=== PATIENT | female | born 1945 | race Caucasian/White ===

== ENCOUNTER 2018-12-09 13:42 | Outpatient (RCR) | payer OTHER, SELFPAY | END 2019-06-15 23:59 | disposition home or self-care (01) | LOC: OPREHAB 13:42 | PROVIDERS: PCP Family Medicine; Visit Provider Surgery Surgical Oncology | DX: I97.2 Postmastectomy lymphedema syndrome (principal); C50.411 Malignant neoplasm of upper-outer quadrant of right female breast; Z17.0 Estrogen receptor positive status [ER+]; Z90.13 Acquired absence of bilateral breasts and nipples | CPT/HCPCS: 97162 ==

== ENCOUNTER → 2019-12-01 09:43 | Outpatient (CLI) | payer MEDICARE, SELFPAY ==
--- NOTE | ~2019-12-01 | CT_ITS ---
EXAMINATION: CT abdomen pelvis w con DATE: 12/01/2019 10:40 INDICATION: Abdominal pain. Early satiety. TECHNIQUE: Computed tomography (CT) of the abdomen and pelvis was performed with 100 mL Omnipaque-350 intravenous contrast. Automated exposure control and iterative reconstruction technique were employe d. The dose-length product was 878.73 mGy-cm. COMPARISON: None FINDINGS: Suture line extending horizontally along the periphery of the left lower lobe. Borderline heart size. Atherosclerotic coronary artery calcification. No pericardial or pleural effusion. Small sliding-typ e hiatal hernia. 1.2 cm low-attenuation lesion in the left hepatic lobe with lobular margins most lik saray a hepatic cyst or hemangioma. Status post cholecystectomy. Spleen, pancreas, bilateral adrenal gl ands and kidneys are normal. Bladder, uterus and bilateral adnexa are unremarkable. Appendix is annie l. No abnormal bowel wall thickening or obstruction. Small fat-containing paraumbilical and tiny fat- containing umbilical hernias. No free intraperitoneal gas or fluid. No pathologically enlarged abdomi nal or pelvic lymphadenopathy. Mild S-shaped scoliosis of the lumbar spine with lower lumbar dextrocu rvature and upper lumbar levocurvature. Severe thoracolumbar spondylosis. Osteitis pubis. IMPRESSION: 1. Small sliding-type hiatal hernia. 2. Fat-containing tiny umbilical and small paraumbilical hernias. Reviewed, dictated and finalized at location A.
[2019-12-01 10:27] LABS: Estimated Glomerular Filt Rate > 60
== END ==
PROVIDERS: PCP Family Medicine; Visit Provider Family Medicine
DX: K44.9 Diaphragmatic hernia without obstruction or gangrene (principal); K42.9 Umbilical hernia without obstruction or gangrene
CPT/HCPCS: 74177; Q9967

== ENCOUNTER 2021-07-29 20:44 | Emergency (ER) | payer MEDICARE, SELFPAY ==
--- NOTE | ~2021-07-29 | XR_ITS ---
EXAM: XR shoulder RT min 2V DATE: 07/29/2021 21:16 HISTORY: Fall and injury . COMPARISON: None available. FINDINGS: Decreased mineralization. Mildly displaced and likely comminuted fracture of the proximal right humerus, likely involving portions of the humeral head and possibly the greater trochanter. No lytic or blastic lesion. Joint spaces are maintained. No erosion or periosteal change. Soft tissues w ithin normal limits. IMPRESSION: Mildly displaced likely comminuted fracture of the proximal right humerus, may involve po rtions of the humeral head/greater trochanter. Reviewed, dictated and finalized at location K. IMPRESSION: Mildly displaced likely comminuted fracture of the proximal right h umerus, may involve portions of the humeral head/greater trochanter.
[2021-07-29 20:46] VITALS: BP 168/76; PULSE 79; RESP 18; TEMP 36.8; O2SAT 95
--- NOTE | 2021-07-29 21:02 | ED.UPPEXIN ---
HPI - Extremity Injury (Upper) General Chief Complaint: Extremity Injury, Upper Stated Complaint: fall with right shoulder pain History of Present Illness HPI narrative: 75-year-old female presents emergency room secondary to pain and injury to the right shoulder. She was at a gas station and there was 1 step to walk up to get into the place and she just did not see it and tripped and fell. Landing striking her right shoulder. Did not hit her head and had no loss of consciousness. She denies any neck, chest, or lower extremity pain. This happened just prior to presentation emergency room. She is brought in by EMS. They gave her morphine IV prior to arrival. Review of Systems Review of Systems: CONSTITUTIONAL: Denies fever, chills, or sweats. EYES: Denies visual changes, redness, or discharge. ENT: Denies rhinorrhea, congestion, sore throat, or otalgia. CARDIOVASCULAR: Denies chest pain, palpitations, or edema. RESPIRATORY: Denies cough or dyspnea. GASTROINTESTINAL: Denies abdominal pain, nausea, vomiting, or diarrhea. GENITOURINARY: Denies dysuria or hematuria. SKIN: Denies rash or itching. MUSCULOSKELETAL: Pain to the right shoulder with decreased range of motion. No pain to the neck or back NEUROLOGIC: Denies headache, numbness, or weakness. PSYCHIATRIC: Denies anxiety or depression. [facility] Past Medical History Medical History Breast cancer Hypertension Surgical History Surgical History H/O bilateral mastectomy Social History Social History Smoking status: Never smoker Exam Narrative: APPEARANCE: Well appearing, no pain or distress, well-nourished. Head normocephalic and atraumatic. EYES: PERRLA/EOMI, conjunctivae very clear. NOSE: Normal with no drainage EARS:TMS clear Mikki Baxter, with good light reflex. THROAT: Pharynx clear, no exudate. NECK: Supple. No adenopathy, no masses. RESPIRATORY: Airway patent, respirations nonlabored. Clear to auscultation bilaterally, no rales, rhonchi, wheezing. CARDIOVASCULAR: Regular rate and rhythm without murmurs, rubs, or gallops. ABDOMINAL: Soft, nontender, nondistended, no hepatosplenomegaly Musculoskeletal: Decreased range of motion of the right shoulder. Tenderness to palpation anteriorly as well as the lateral aspect of the proximal humerus. There is no tenderness down the humeral shaft to the elbow and below. With full range of motion at the wrist and with all her fingers. No tenderness to palpation along her posterior cervical spine with full range of motion. NEURO: Alert. Cranial nerves II through XII intact. Normal gait. Good coordination. Nonfocal examination. SKIN:: Warm, dry. Normal Color PSYCHIATRIC: Normal affect/mood, normal interaction Course Vital Signs Vital signs: Vital Signs Temperature 98.3 F 07/29/21 20:46 Pulse Rate 79 07/29/21 20:46 Respiratory Rate 18 07/29/21 20:46 Blood Pressure 168/76 H 07/29/21 20:46 Pulse Oximetry 95 07/29/21 20:46 Temperature 98.3 F 07/29/21 20:46 Pulse Rate 79 07/29/21 20:46 Respiratory Rate 18 07/29/21 20:46 Blood Pressure 168/76 H 07/29/21 20:46 Pulse Oximetry 95 07/29/21 20:46 MDM - Extremity Injury (Upper) MDM Narrative Medical decision making narrative: X-rays read by me shows an impacted right humeral neck fracture. This was showed to the patient and her family. Also explained to her that these are generally medical fractures and do not require surgery. Patient will be fitted with a shoulder immobilizer. Patient was given additional Toradol IV prior to removing her IV. Told her she can supplement her medication for pain at home Advil or Aleve. Given a prescription for Ava. Given follow-up with orthopedics. Imaging Data My impression: Impacted humeral neck fracture Discharge Plan Discharge Clinical Impress
[2021-07-29 21:30] VITALS: BP 130/78; PULSE 80; RESP 16; TEMP 36.6; O2SAT 100
[2021-07-29] MEDS: KETOROLAC 30 MG/ML VIAL (*BKC) IV PUSH (21:39)
== END 2021-07-29 22:04 | disposition home or self-care (01) ==
LOC: ANHED 21:44
PROVIDERS: Emergency Provider Emergency Medicine; PCP Family Medicine
DX: S42.211A Unspecified displaced fracture of surgical neck of right humerus, initial encounter for closed fracture (principal); I10 Essential (primary) hypertension; Z85.3 Personal history of malignant neoplasm of breast; Z90.13 Acquired absence of bilateral breasts and nipples; W10.9XXA Fall (on) (from) unspecified stairs and steps, initial encounter
CPT/HCPCS: 73030; 96374; 99284; J1885

== ENCOUNTER 2024-04-05 14:39 | Outpatient (CLI) | payer MEDICARE, SELFPAY ==
--- NOTE | ~2024-04-05 | CT_ITS ---
CT of the Abdomen and Pelvis: Indication: Microhematuria Technique: 2.5 mm axial scans were obtained through the abdomen and pelvis prior to and following in travenous administration of 130 cc of Omnipaque 350. Dose reduction technique was used on this scan b y utilizing automated exposure control and iterative reconstruction technique. The dose-length produc t (DLP) was 2051.10 mGy-cm. Findings: Scans through the lung bases are unremarkable. The liver, spleen, pancreas, adrenals and kidneys are within normal limits. Cholecystectomy clips are present. There are atherosclerotic calcifications of the aorta. No lymphadenopathy. No bowel obstruction or bowel wall thickening. There is no evidence to suggest acute appendicitis. Sm all fat-containing umbilical hernia present. Images through the pelvis were performed. Urinary bladder unremarkable. No pelvic mass seen. No ascit es. There is degenerative spondylosis of the spine. Impression: No etiology for hematuria identified. Small fat-containing umbilical hernia. Reviewed, dictated and finalized at [facility]. RVISOR ABATTOIR Impression: No etiology for hematuria identified. Small fat-containing umbilical hernia.
[2024-04-05 15:30] LABS: Estimated Glomerular Filt Rate 48
--- OUTSIDE RECORDS SUMMARY | 2024-04-05 17:09 | XMS_ITS | Clinical Summary ---
Author Organization [facility] Address [address] [place] [address] Care Team Providers Care Environmental Planner Name Role Phone Anastasiya Collins MD Primary Care Provider [phone] Source Comments [facility],non-owned Affiliates and Associated Physician Practices is amultiple site organization consisting of ambulatory clinics and hospital sitesin [place], [place]. This disclosure is being madepursuant to the Care Everywhere program and may not contain all information available regarding this patient. Last updated 17.[facility] Allergies Active Allergy Reactions Criticality Noted Date Comments Amoxicillin Rash Medium 04/10/2017 Fish Allergy Anaphylaxis High 04/10/2017 Sulfa Drugs Urticaria Medium 04/10/2017 Medications * Be aware that medications may not be up to date on this document. Alwaysverify current medications with the patient. Medication Sig Dispensed Refills Start Date End Date Status LEVOTHYROXINE SODIUM PO Active ATENOLOL PO Active Citalopram Hydrobromide (CITALOPRAM PO) Active GEMFIBROZIL PO Active Fluticasone-Salmetero l (ADVAIR HFA IN) Active ALBUTEROL IN Active metFORMIN (GLUCOPHAGE) 500 MG tablet Take 500 mg by mouth 2 times daily with morning and evening meal Active SIMVASTATIN PO Active aspirin (ASPIRIN) 81 MG tablet Take 81 mg by mouth once daily Active GLIPIZIDE PO Active vitamin D, ergocalciferol, (DRISDOL) 1.25 MG (84532 UT) capsule Take 50,000 Units by mouth every 7 days 06/12/2020 Active anastrozole (ARIMIDEX) 1 MG tablet Take 1 mg by mouth once daily 07/24/2020 Active famotidine (PEPCID) 20 MG tablet Take 20 mg by mouth 2 times daily 07/24/2020 Active furosemide (LASIX) 20 MG tablet Take 20 mg by mouth as needed 07/27/2020 Active predniSONE (DELTASONE) 20 MG tablet Take 20 mg by mouth as needed 06/09/2020 Active cyclobenzaprine (FLEXERIL) 5 MG tablet Take 1 (one) tablet by mouth nightly as needed 30 tablet 2 09/08/2020 Active methotrexate 2.5 MG tablet Take 4 tablets once in week 1, and then 6 tablets once every week. 30 tablet 1 11/30/2020 Active folic acid (FOLVITE) 1 MG tablet Take 1 (one) tablet by mouth once daily 30 tablet 2 11/30/2020 Active celecoxib (CELEBREX) 100 MG capsuleIndications:Po lyarthritis TAKE 1 CAPSULE BY MOUTH EVERY DAY WITH FOOD 30 capsule 1 04/18/2021 Active Immunizations Name Administration Dates Next Due Covid Moderna primary monovalent 12+ yr 0.5mL ,04/10/2020 INFLUENZA VACCINE, HIGH-DOSE , QUADR. (FLUZONE HIGH-DOSE QUADRIVALENT; 65Y+), 0.7 ML (HD-IIV4) 03/29/2019,12/18/2017 Pneumococcal Pcv13 Conj 01/07/2018 Social History Tobacco Use Types Packs/Day Years Used Date Smoking Tobacco: Former Cigarettes Q uit: 1970 Smokeless Tobacco: Never PHQ-2 Answer Date Recorded PHQ2 TOTAL SCORE 0 09/08/2020 Sex and Gender Information Value Date Recorded Sex Assigned at Not on file Gender Identity Not on file Sexual Orientation Not on file Last Filed Vital Signs Vital Sign Reading Time Taken Comments Blood Pressure 144/59 11/21/2020 1:00 PM CDT Pulse 75 11/21/2020 1:00 PM CDT Temperature 37.2 C (99 F) 04/10/2017 2:18 PM BAR PILOT Respiratory Rate 16 04/10/2017 2:18 PM BAR PILOT Oxygen Saturation 100% 11/21/2020 1:00 PM CDT Inhaled Oxygen Concentration - - Weight 87.5 kg (193 lb) 11/21/2020 1:00 PM CDT Height 149.9 cm (4' 11 ) 11/21/2020 1:00 PM CDT Body Mass Index 38.98 11/21/2020 1:00 PM CDT Plan of Treatment Health Maintenance Due Date Last Done Comments BONE DENSITY TESTING 1945 HEPATITIS C SCREENING 12/23/1963 DTAP/TDAP/TD VACCINES (1 - Tdap) 1964 ZOSTER VACCINE (1 of 2) 12/28/1995 PNEUMOCOCCAL VACCINE 50+ (2 of 2 - PPSV23) 01/07/2019 01/07/2018 Respiratory Syncytial Virus (RSV) Vaccine Pt: or over 60 yrs (1 - 1-dose 75+ series) 2020 COVID-19 VACCINE ( - season) 2023 01/02/2021, 05/07/2020, 04/10/2020, Additional history exists INFLUENZA VACCINE (#1) 2023 03/29/2019, 2017 DEPRESSION SCREENING 02/11/2024 MEDICARE AWV CALENDAR YEAR 2024 HEPATITIS B VACCINE Aged Out No longe r eligible based on patient's age to complete this topic HIB VACCINE Aged Out No longer eligi ble based on patient's age to complete this topic HPV VACCINE Aged Out No longer eligi ble based on patient's age to complete this topic MENINGOCOCCAL (Group B) VACCINE Aged Out No longer eligible based on patient's age to complete this topic MENINGOCOCCAL VACCINE Aged Out No dilip christopher eligible based on patient's age to complete this topic Care Teams Environmental Planner Relationship Specialty Start Date End Date Anastasiya Collins MD [address] [place] [phone] PCP - General Family Medicine 09/06/20
--- OUTSIDE RECORDS SUMMARY | 2024-04-05 17:09 | XMS_ITS | Clinical Summary ---
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 Gender Identity Not on file Sexual Orientation Not on file Plan of Treatment Health Maintenance Due Date Last Done Comments DEXA Bone Density 1945 Hepatitis C Virus (HCV) Screening 1945 TdaP Immunization 1945 Zoster Immunization (1 of 2) 12/28/1995 Pneumococcal Immunization (50+ years) (2 of 2 - PPSV23) 01/07/2019 01/07/2018 Respiratory Syncytial Virus (RSV) Immunization (Adult) (1 - 1-dose 75+ series) 2020 Influenza Immunization (#1) 10/12/202311/10, 03/29/2019, 03/29/2019, Additional history exists SARS-COV-2 Immunization ( season) 2023 01/02/2021, 05/07/2020, 04/10/2020, Additional history exists Hepatitis B Immunization Aged Out No longer eligible based on patient's age to complete this topic Meningococcal Immunization (ACWY) Aged Out No longer eligible based on patient's age to complete this topic Rotavirus Immunization Aged Out No lo nger eligible based on patient's age to complete this topic
--- OUTSIDE RECORDS SUMMARY | 2024-04-05 17:09 | XMS_ITS | Patient Health Summary ---
Author Organization [facility] Address [address] [place] [address] Care Team Providers Care Manager Maintenance Name Role Phone Anastasiya Collins MD Primary Care Provider [phone] Note from [facility],non-owned Affiliates and Associated Physician Practices is amultiple site organization consisting of ambulatory clinics and hospital sitesin [place], [place], [place] and [place]. This disclosure is being madepursuant to the Care Everywhere program and may not contain all information available regarding this patient. Last updated 17.[facility] Allergies * Amoxicillin(Rash) -Medium Criticality * Fish Allergy(Anaphylaxis) -High Criticality * Sulfa Drugs(Urticaria) -Medium Criticality Medications * Be aware that medications may not be up to date on this document. Alwaysverify current medications with the patient. * LEVOTHYROXINE SODIUM PO * ATENOLOL PO * Citalopram Hydrobromide (CITALOPRAM PO) * GEMFIBROZIL PO * Fluticasone-Salmeterol (ADVAIR HFA IN) * ALBUTEROL IN * metFORMIN (GLUCOPHAGE) 500 MG tablet Take 500 mg by mouth 2 times daily with morning and evening meal * SIMVASTATIN PO * aspirin (ASPIRIN) 81 MG tablet Take 81 mg by mouth once daily * GLIPIZIDE PO * vitamin D, ergocalciferol, (DRISDOL) 1.25 MG (85150 UT) capsule(Started 06/12/2020) Take 50,000 Units by mouth every 7 days * anastrozole (ARIMIDEX) 1 MG tablet(Started 07/24/2020) Take 1 mg by mouth once daily * famotidine (PEPCID) 20 MG tablet(Started 07/24/2020) Take 20 mg by mouth 2 times daily * furosemide (LASIX) 20 MG tablet(Started 07/27/2020) Take 20 mg by mouth as needed * predniSONE (DELTASONE) 20 MG tablet(Started 06/09/2020) Take 20 mg by mouth as needed * cyclobenzaprine (FLEXERIL) 5 MG tablet(Started 09/08/2020) Take 1 (one) tablet by mouth nightly as needed 2 refills by 09/08/2021 * methotrexate 2.5 MG tablet(Started 11/30/2020) Take 4 tablets once in week 1, and then 6 tablets once every week. 1 refill by 11/30/2021 * folic acid (FOLVITE) 1 MG tablet(Started 11/30/2020) Take 1 (one) tablet by mouth once daily 2 refills by 11/30/2021 * celecoxib (CELEBREX) 100 MG capsule(Started 04/18/2021) TAKE 1 CAPSULE BY MOUTH EVERY DAY WITH FOOD 1 refill by 04/18/2022 Immunizations * Covid Moderna primary monovalent 12+ yr 0.5mL(Given 05/07/2020, 04/10/2020) * INFLUENZA VACCINE, HIGH-DOSE, QUADR. 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 Oxygen Saturation 100% 11/21/2020 1:00 PM CDT Inhaled Oxygen Concentration - - Weight 87.5 kg (193 lb) 11/21/2020 1:00 PM CDT Height 149.9 cm (4' 11 ) 11/21/2020 1:00 PM CDT Body Mass Index 38.98 11/21/2020 1:00 PM CDT Procedures * MITOCHONDRIAL ANTIBODY SCREEN(Performed 11/21/2020) Performed for Psoriatic arthritis (HCC) * SMOOTH MUSCLE ANTIBODY(Performed 11/21/2020) Performed for Psoriatic arthritis (HCC) * COMPREHENSIVE METABOLIC PANEL(Performed 11/21/2020) Performed for Psoriatic arthritis (HCC) * CBC W AUTO DIFFERENTIAL(Performed 11/21/2020) Performed for Psoriatic arthritis (HCC) * FOLATE(Performed 11/21/2020) Performed for Psoriatic arthritis (HCC) * URIC ACID BLOOD(Performed 09/08/2020) Performed for Polyarthritis * C-REACTIVE PROTEIN(Performed 09/08/2020) Performed for Polyarthritis * ERYTHROCYTE SEDIMENTATION RATE(Performed 09/08/2020) Performed for Polyarthritis * COMPREHENSIVE METABOLIC PANEL(Performed 09/08/2020) Performed for Polyarthritis * CBC W AUTO DIFFERENTIAL(Performed 09/08/2020) Performed for Polyarthritis * CYCLIC CITRUL PEPTIDE ANTIBODY IGG/IGA (CCP)(Performed 09/08/2020) Performed for Polyarthritis * RHEUMATOID FACTOR BLOOD QUANTITATIVE(Performed 09/08/2020) Performed for Polyarthritis * DNA ANTIBODY DOUBLE STRANDED(Performed 09/08/2020) Performed for Polyarthritis * LITZY ANTIBODY PANEL(Performed 09/08/2020) Performed for Polyarthritis * XR WRIST BILAT 3VW OR MORE(Performed 09/08/2020) Performed for Polyarthritis * XR HAND BILAT 3VW OR MORE(Performed 09/08/2020) Performed for Polyarthritis Results * MITOCHONDRIAL ANTIBODY SCREEN (11/21/2020 1:57 PM CDT) Mitochondrial M2 Antibody <20.0 0.0 - 20.0 Units [facility] ACCOUNT BILL Comment: Negative 0.0 - 20.0 Equivocal 20.1 - 24.9 Positive >24.9 . Mitochondrial (M2) Antibodies are found in 90-96% of patients with primary biliary cirrhosis. Blood BLOOD SPECIMEN / Unknown 11/21/2020 1:57 PM CDT 11/21/2020 Narrative Resulting Agency Comment Lab Testing performed at: [facility] [address] [facility] [id number] Shanti Gagnon MD LAB - CHEMISTRY ORDE RABLES Performing Organization Address City/[facility]/ZIP Co de Phone Number [facility] ACCOUNT BILL [address] [place] [address] * SMOOTH MUSCLE ANTIBODY (11/21/2020 1:57 PM CDT) Actin (Smooth Muscle) Antibody 3 0 - 19 Units [facility] ACCOUNT BILL Comment: Negative 0 - 19 Weak positive 20 - 30 Moderate to strong positive >30 . Actin Antibodies are found in 52-85% of patients with autoimmune hepatitis or chronic active hepatitis and in 22% of patients with primary biliary cirrhosis. Blood BLOOD SPECIMEN / Unknown 11/21/2020 1:57 PM CDT 11/21/2020 Narrative Resulting Agency Comment Lab Testing performed at: [facility] [address] [facility] [id number] Shanti Gagnon MD LAB - SEROLOGY ORDER KAJAL Performing Organization Address [facility] de Phone Number [facility] ACCOUNT BILL [address] [place] [address] * (ABNORMAL) CBC WITH DIFFERENTIAL (11/21/2020 1:57 PM CDT) Only the most recent of2 resultswithin the time period is included. WBC 6.4 3.4 - 10.8 x10E3/uL [facility] ACCOUNT BILL RBC 4.19 3.77 - 5.28 x10E6/uL [facility] ACCOUNT BILL Hemoglobin 13.2 11.1 - 15.9 g/dL [facility] ACCOUNT BILL Hematocrit 41.0 34.0 - 46.6 % [facility] ACCOUNT BILL MCV 98(H) 79 - 97 fL [facility] ACCOUNT BILL MCH 31.5 26.6 - 33.0 pg [facility] ACCOUNT BILL MCHC 32.2 31.5 - 35.7 g/dL [facility] ACCOUNT BILL RDW 12.9 11.7 - 15.4 % [facility] ACCOUNT BILL Platelet Count 250 150 - 450 x10E3/uL [facility] ACCOUNT BILL Granulocytes % 69 Not Estab. % [facility] ACCOUNT BILL Lymphocytes % 20 Not Estab. % [facility] ACCOUNT BILL Monocytes % 6 Not Estab. % [facility] ACCOUNT BILL Eosinophils % 3 Not Estab. % [facility] ACCOUNT BILL Basophils % 1 Not Estab. % [facility] ACCOUNT BILL Immature Cells NOT NEEDED [facility] ACCOUNT BILL Comment:Ancillary determined the test is not needed. Granulocytes Absolute 4.5 1.4 - 7.0 x10E3/uL [facility] ACCOUNT BILL Lymphocytes Absolute 1.3 0.7 - 3.1 x10E3/uL [facility] ACCOUNT BILL Monocytes Absolute 0.4 0.1 - 0.9 x10E3/uL [facility] ACCOUNT BILL Eosinophils Absolute 0.2 0.0 - 0.4 x10E3/uL [facility] ACCOUNT BILL Basophils Absolute 0.1 0.0 - 0.2 x10E3/uL [facility] ACCOUNT BILL Immature Granulocytes 1 Not Estab. % [facility] ACCOUNT BILL Immature Granulocytes Absolute 0.0 0.0 - 0.1 x10E3/uL [facility] ACCOUNT BILL nRBC NOT NEEDED [facility] ACCOUNT BILL Comment:Ancillary determined the test is not needed. Comment Hematology NOT NEEDED [facility] ACCOUNT BILL Comment:Ancillary determined the test is not needed. Blood BLOOD SPECIMEN / Unknown 11/21/2020 1:57 PM CDT 11/21/2020 Narrative Resulting Agency Comment Lab Testing performed at: [facility] [address] [facility] [id number] Shanti Gagnon MD LAB - HEMATOLOGY ORD ERABLES [facility] ACCOUNT BILL [address] [place] [address] * (ABNORMAL) COMPREHENSIVE METABOLIC PANEL (11/21/2020 1:57 PM CDT) Only the most recent of2 resultswithin the time period is included. Glucose 205(H) 65 - 99 mg/dL [facility] ACCOUNT BILL BUN 18 8 - 27 mg/dL [facility] ACCOUNT BILL Creatinine 0.79 0.57 - 1.00 mg/dL [facility] ACCOUNT BILL eGFR by MDRD 74 >59 mL/min/1.7 3 [facility] ACCOUNT BILL eGFR by MDRD 85 >59 mL/min/1.7 3 [facility] ACCOUNT BILL Comment: [facility] currently reports eGFR in compliance with the current recommendations of the National Kidney Foundation. [facility] will update reporting as new guidelines are published from the NKF-ASN Task force. BUN/Creatinine Ratio 23 12 - 28 [facility] ACCOUNT BILL Sodium 140 134 - 144 mmol/L [facility] ACCOUNT BILL Potassium 3.8 3.5 - 5.2 mmol/L [facility] ACCOUNT BILL Chloride 102 96 - 106 mmol/L [facility] ACCOUNT BILL CO2 22 20 - 29 mmol/L [facility] ACCOUNT BILL Calcium 9.0 8.7 - 10.3 mg/dL [facility] ACCOUNT BILL Protein Total 6.9 6.0 - 8.5 g/dL [facility] ACCOUNT BILL Albumin 4.3 3.7 - 4.7 g/dL [facility] ACCOUNT BILL Globulin Total 2.6 1.5 - 4.5 g/dL [facility] ACCOUNT BILL Albumin/Globulin Ratio 1.7 1.2 - 2.2 [facility] ACCOUNT BILL Bilirubin Total 0.3 0.0 - 1.2 mg/dL [facility] ACCOUNT BILL Alkaline Phosphatase 87 44 - 121 IU/L [facility] ACCOUNT BILL Comment:Please note refere nce interval change AST 47(H) 0 - 40 IU/L [facility] ACCOUNT BILL ALT 29 0 - 32 IU/L [facility] ACCOUNT BILL Blood BLOOD SPECIMEN / Unknown 11/21/2020 1:57 PM CDT 11/21/2020 Narrative Resulting Agency Comment [facility] [address] [facility] [id number] Shanti Gagnon MD LAB - CHEMISTRY MARK ROMANO [facility] ACCOUNT BILL [address] [place] [address] * FOLATE (11/21/2020 1:57 PM CDT) Folate 13.0 >3.0 ng/mL [facility] ACCOUNT BILL Comment: A serum folate concentration of less than 3.1 ng/mL is considered to represent clinical deficiency. Blood BLOOD SPECIMEN / Unknown 11/21/2020 1:57 PM CDT 11/21/2020 Narrative Resulting Agency Comment Lab Testing performed at: [facility] [place] [address] [facility] [id number] Shanti Gagnon MD LAB - CHEMISTRY MARK ROMANO [facility] ACCOUNT BILL [address] [place] [address] * CYCLIC CITRUL PEPTIDE ANTIBODY IGG/IGA (CCP) (09/08/2020 1:59 PM CDT) CCP Antibodies IgG/IgA 7 0 - 19 units [facility] ACCOUNT BILL Comment: Negative <20 Weak positive 20 - 39 Moderate positive 40 - 59 Strong positive >59 Blood BLOOD SPECIMEN / Unknown 09/08/2020 1:59 PM CDT 09/08/2020 Narrative Resulting Agency Comment Lab Testing performed at: [facility] [id number] Shanti Gagnon MD LAB - SEROLOGY ORDER KAJAL [facility] ACCOUNT BILL [address] [place] [address] * URIC ACID BLOOD (09/08/2020 1:59 PM CDT) Pathologist [facility] Uric Acid 5.5 2.6 - 6.0 mg/dL [facility] ACCOUNT BILL Blood BLOOD SPECIMEN / Unknown 09/08/2020 1:59 PM CDT 09/08/2020 Narrative Resulting Agency Comment Lab Testing performed at: [facility] [place] [address] [place] [id number] Shanti Gagnon MD LAB - CHEMISTRY MARK ROMANO [facility] ACCOUNT BILL [address] [place] [address] * RHEUMATOID FACTOR BLOOD QUANTITATIVE (09/08/2020 1:59 PM CDT) Rheumatoid Factor <15 <30 IU/mL [facility] ACCOUNT BILL Blood BLOOD SPECIMEN / Unknown 09/08/2020 1:59 PM CDT 09/08/2020 Narrative Resulting Agency Comment Lab Testing performed at: [place] [address] [place] [id number] Shanti Gagnon MD LAB - CHEMISTRY ORDCampbell ROMANO Performing Organization Address City/[facility]/ZIP Co de Phone Number [facility] ACCOUNT BILL [address] [place] [address] * (ABNORMAL) C-REACTIVE PROTEIN (09/08/2020 1:59 PM CDT) C-Reactive Protein 1.04(H) <=0.50 mg/dL [facility] ACCOUNT BILL Blood BLOOD SPECIMEN / Unknown 09/08/2020 1:59 PM CDT 09/08/2020 Narrative Resulting Agency Comment Lab Testing performed at: [address] [place] [id number] Shanti Gagnon MD LAB - CHEMISTRY ORDCampbell ROMANO Performing Organization Address City/[facility] Co de Phone Number [facility] ACCOUNT BILL [address] [place] [address] * (ABNORMAL) ERYTHROCYTE SEDIMENTATION RATE (09/08/2020 1:59 PM CDT) Erythrocyte Sedimentation Rate Westergren 36(H) 0 - 30 MM/HR [facility] ACCOUNT BILL Blood BLOOD SPECIMEN / Unknown 09/08/2020 1:59 PM CDT 09/08/2020 Narrative Resulting Agency Comment Lab Testing performed at: [place] [address] [place] [id number] Shanti Gagnon MD LAB - HEMATOLOGY ORD ERABLES [facility] ACCOUNT BILL [address] [place] [address] * LITZY ANTIBODY PANEL (09/08/2020 1:58 PM CDT) WIRELESS CONSULTANT Antibody <0.2 0.0 - 0.9 AI [facility] ACCOUNT BILL Bennett (LITZY) Antibody <0.2 0.0 - 0.9 AI [facility] ACCOUNT BILL Sjogren's Antibodies (SSA) <0.2 0.0 - 0.9 AI [facility] ACCOUNT BILL Sjogren's Antibodies (SSB) <0.2 0.0 - 0.9 AI [facility] ACCOUNT BILL Blood BLOOD SPECIMEN / Unknown 09/08/2020 1:58 PM CDT 09/08/2020 Narrative Resulting Agency Comment Lab Testing performed at: [facility] [address] [facility] [id number] Shanti Gagnon MD LAB - CHEMISTRY ORDE RABJOCELYNN Performing Organization Address [facility] Co de Phone Number [facility] ACCOUNT BILL [address] [place] [address] * DNA ANTIBODY DOUBLE STRANDED (09/08/2020 1:58 PM CDT) Pathologist [facility] Anti-dsDNA Quantitative <1 0 - 9 IU/mL [facility] ACCOUNT BILL Comment: Negative <5 Equivocal 5 - 9 Positive >9 Blood BLOOD SPECIMEN / Unknown 09/08/2020 1:58 PM CDT 09/08/2020 Narrative Resulting Agency Comment Lab Testing performed at: [facility] [address] [facility] [id number] Shanti Gagnon MD LAB - HEMATOLOGY ORD ERABLES Performing Organization Address City/[facility]/ZIP Co de Phone Number [facility] ACCOUNT BILL [address] [place] [address] * XR WRIST BILAT 3VW OR MORE (09/08/2020 1:51 PM CDT) Anatomical Region Laterality Modality Wrist / Hand, Upper Extremity Ra diographic Imaging 09/08/2020 3:17 PM CDT Impressions 09/08/2020 3:20 PM CDT Polyarthropathy. 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 *Reading Radiologist: Enrique Arechiga on 09/08/2020 at 3:20 PM Narrative 09/08/2020 3:20 PM CDT Bilateral wrist 3 views, bilateral hand 3 views HISTORY: Bilateral hand and wrist pain, polyarthralgia Left wrist: Joint space narrowing at the scaphoid trapezium joint. Mild gentle changes at the first CMC joint. The carpal carpal joint spacing is otherwise preserved Right wrist: Cartilage thinning is moderate to advanced scaphoid trapezium joint. Mild first CMC joint arthrosis. Degenerative changes at multiple MCP joints bilaterally. Normal alignment of the lunate relative to the radius. Left hand: Periarticular erosion, periarticular demineralization and joint subluxations at the left second and third DIP joint with somewhat of a gall wing appearance fourth DIP joint with periarticular erosion or demineralization fifth DIP joint. MCP joint narrowing on the left second third and fifth MCP. There is a soft tissue calcification at the volar aspect of the second DIP joint. Right hand: Polyarthropathy with again arose appearing arthropathy second third and fifth DIP joint as well as the fifth PIP joint. Cartilage thinning second third and a stent fifth MCP joint. Procedure Note Enrique Arechiga MD - 09/08/2020 Bilateral wrist 3 views, bilateral hand 3 views HISTORY: Bilateral hand and wrist pain, polyarthralgia Left wrist: Joint space narrowing at the scaphoid trapezium joint. Mild gentle changes at the first CMC joint. The carpal carpal joint spacing is otherwise preserved Right wrist: Cartilage thinning is moderate to advanced scaphoid trapezium joint. Mild first CMC joint arthrosis. Degenerative changes at multiple MCP joints bilaterally. Normal alignment of the lunate relative to the radius. Left hand: Periarticular erosion, periarticular demineralization and joint subluxations at the left second and third DIP joint with somewhat of a gall wing appearance fourth DIP joint with periarticular erosion or demineralization fifth DIP joint. MCP joint narrowing on the left second third and fifth MCP. There is a soft tissue calcification at the volar aspect of the second DIP joint. Right hand: Polyarthropathy with again arose appearing arthropathy second third and fifth DIP joint as well as the fifth PIP joint. Cartilage thinning second third and a stent fifth MCP joint. IMPRESSION Polyarthropathy. 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 *Reading Radiologist: Enrique Arechiga on 09/08/2020 at 3:20 PM Shanti Gagnon MD DIAGNOSTIC IMAGING [facility] * XR HAND BILAT 3VW OR MORE (09/08/2020 1:51 PM CDT) Anatomical Region Laterality Modality Upper Extremity, Wrist / Hand Ra diographic Imaging 09/08/2020 3:17 PM CDT Impressions 09/08/2020 3:20 PM CDT Polyarthropathy. 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 *Reading Radiologist: Enrique Arechiga on 09/08/2020 at 3:20 PM Narrative 09/08/2020 3:20 PM CDT Bilateral wrist 3 views, bilateral hand 3 views HISTORY: Bilateral hand and wrist pain, polyarthralgia Left wrist: Joint space narrowing at the scaphoid trapezium joint. Mild gentle changes at the first CMC joint. The carpal carpal joint spacing is otherwise preserved Right wrist: Cartilage thinning is moderate to advanced scaphoid trapezium joint. Mild first CMC joint arthrosis. Degenerative changes at multiple MCP joints bilaterally. Normal alignment of the lunate relative to the radius. Left hand: Periarticular erosion, periarticular demineralization and joint subluxations at the left second and third DIP joint with somewhat of a gall wing appearance fourth DIP joint with periarticular erosion or demineralization fifth DIP joint. MCP joint narrowing on the left second third and fifth MCP. There is a soft tissue calcification at the volar aspect of the second DIP joint. Right hand: Polyarthropathy with again arose appearing arthropathy second third and fifth DIP joint as well as the fifth PIP joint. Cartilage thinning second third and a stent fifth MCP joint. Procedure Note Enrique Arechiga MD - 09/08/2020 Bilateral wrist 3 views, bilateral hand 3 views HISTORY: Bilateral hand and wrist pain, polyarthralgia Left wrist: Joint space narrowing at the scaphoid trapezium joint. Mild gentle changes at the first CMC joint. The carpal carpal joint spacing is otherwise preserved Right wrist: Cartilage thinning is moderate to advanced scaphoid trapezium joint. Mild first CMC joint arthrosis. Degenerative changes at multiple MCP joints bilaterally. Normal alignment of the lunate relative to the radius. Left hand: Periarticular erosion, periarticular demineralization and joint subluxations at the left second and third DIP joint with somewhat of a gall wing appearance fourth DIP joint with periarticular erosion or demineralization fifth DIP joint. MCP joint narrowing on the left second third and fifth MCP. There is a soft tissue calcification at the volar aspect of the second DIP joint. Right hand: Polyarthropathy with again arose appearing arthropathy second third and fifth DIP joint as well as the fifth PIP joint. Cartilage thinning second third and a stent fifth MCP joint. IMPRESSION Polyarthropathy. 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 *Reading Radiologist: Enrique Arechiga on 09/08/2020 at 3:20 PM Shanti Gagnon MD DIAGNOSTIC IMAGING O [facility] Care Teams Manager Maintenance Relationship Specialty Start Date End Date Anastasiya Collins MD [address] [place] [address] Dr. [place] [id number] PCP - General Family Medicine 09/06/20
--- OUTSIDE RECORDS SUMMARY | 2024-04-05 17:09 | XMS_ITS | Referral Summary ---
Author Organization [facility] [employer] Address [address] [place] [address] Care Team Providers Care Music Orchestrator Name Role Phone Anastasiya Collins MD Primary Care Provider Source Comments [facility],non-[facility] Affiliates and Associated Physician Practices is amultiple site organization consisting of ambulatory clinics and hospital sitesin [place], [place], [place] and [place]. This disclosure is being madepursuant to the Care Everywhere program and may not contain all information available regarding this patient. Last updated 17.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 [place] [phone] PCP - General Family Medicine 09/06/20
--- OUTSIDE RECORDS SUMMARY | 2024-04-05 17:10 | XMS_ITS | CONTINUITY OF CARE DOCUMENT ---
Author Name noreen sorto Address Unknown Organization [facility] Address [address] [facility] [address] [address] [place] [address] Phone [phone] Care Team Providers Care Superintendent Logging Name Role Phone Neeraj RINCON, Travis Unavailable HEIDI ALDRIDGE MD Unavailable INSURANCE PROVIDERS Payer name Policy type / Coverage type [place] red democrat ID [facility] Other [id number]
--- OUTSIDE RECORDS SUMMARY | 2024-04-05 17:10 | XMS_ITS | Data Portability ---
Author Organization [facility], Main Office Address [address] [place] [address] Assessment No assessment recorded. Plan of Treatment Reminders Order Date Submit Date Provider Last Modified By Organization Details Last Modified Time Details Appointments None recorded. Lab glycohemogl obin, total, blood [address], [address] [place] [address], [address], 4 16:08:30 CMP, serum or plasma [address], [address] [place] [address], [address], 4 16:08:42 lipid panel, serum [address], [address] [place] [address], [address], 4 16:08:56 CBC [address], [address] [place] [address], [address], 4 16:12:40 urinalysis complete, reflex culture [address], [address] [place] [address], [address], 4 16:28:45 urinalysis, dipstick 2023 024 [facility] [address], [place], [address], 4 16:31:03 uric acid, serum or plasma 2023 [email or web address] [facility], [address], [place], [address], 4 16:28:13 vitamin D, 25-hydroxy, total, serum 2023 024 [email or web address] Not available 4 23:48:15 lipid panel, serum 2023 024 THOMPSON Not available 4 20:40:48 hepatic function panel, serum 2023 024 THOMPSON Not available 20:40:53 Referral physical therapist referral - *Please call pt to schedule* 2023 024 [email or web address] 256 [facility] [address], [place], [address], 09:08:23 psychiatris t referral - Please call patient to schedule an appointment . Thank you. 2023 024 [email or web address] [facility], [address] [place] [address] Dr, [place], [address], 09:10:33 Procedures None recorded. Surgeries None recorded. Imaging None recorded. Medication Orders Lomotil 2.5 mg-0.025 mg tablet 2023 [facility] #[id number], [address], [place], [address], 4 15:57:31 Januvia 100 mg tablet 2023 024 [facility]/Pharmacy #[id number], [address], [place], [address], 4 15:57:29 Rybelsus 7 mg tablet 2023 024 [id number] [address], [place], [address], 4 15:57:29 simvastatin 40 mg tablet 2023 024 [id number], [address], [place], [address], 4 15:57:29 celecoxib 200 mg capsule [address] [facility], [facility], [place], [address], 4 15:56:31 Januvia 100 mg tablet [address] [facility], [facility], [place], [address], 4 15:55:41 Rybelsus 3 mg tablet [address] [facility], [facility], [place], [address], 4 15:55:39 Lomotil 2.5 mg-0.025 mg tablet 2022 023 [id number], [address], [place], [address], 3 17:24:47 aripiprazol e 2 mg tablet 2022 023 [email or web address] [id number], [address], [place], [address], 4 15:41:37 Patient TargetsNo targets recorded. Patient InstructionsNo instructions recorded. Reason for Referral Psychiatrist Referral for De pressive disorder Please call patient to schedule an appointment. Thank you. Referring Physician: Anastasiya Collins, Family Medicine, Encounter Date: 04/30/2023 Physical Therapist Referral for Weakness of bilateral lower limb weakness to carlitos lower extrem *Please call pt to schedule* Referring Physician: David Collier [facility], Encounter Date: 07/02/2023 Results Created Date Observation Date Name Description Value Unit Range Abnormal Flag Note LastModifiedBy Organization Detail LastModifiedTime 04/30/19 24 04/30/2023 LIPID PANEL cholesterol 198 mg/dL 140-19 9 [facility] MIAN NSUS RECOM MENDA TION FOR NORMAN STERO L: ADULT CHILD LOW RISK: <200 <170 BORDE RLINE : <200- 239 ----- HIGH RISK: >240 >200 Not Available [facility] (Lab) [address] [place], [address], 04/30/2023 20:40:48 04/30/19 24 04/30/2023 LIPID PANEL triglyceride s 300 mg/dL 0-150 high NIH MIAN NSUS REPOR T RECOM MENDA TION FOR TRIGL YCERI MEENA: ADULT CHILD LOW RISK: <150 ----- BODER LINE: 150-1 99 ----- HIGH RISK: >200 ----- Not Available [facility] (Lab) [address] [place], [address], 04/30/2023 20:40:48 04/30/19 24 04/30/2023 LIPID PANEL HDL cholesterol 59 mg/dL 40- Not Available [facility] (Lab) [address] [place], [address], 04/30/2023 20:40:48 04/30/19 24 04/30/2023 LIPID PANEL LDL cholesterol, calculated 79 mg/dL 0-130 NIH MIAN NSUS REPOR T RECOM MENDA TIONS FOR LDL: ADULT CHILD LOW RISK <130 <110 (OPTI MAL LDL) <100 ----- BORDE RLINE : 130-1 59 ----- HIGH RISK: >160 >130 A TRIGL YCERI DE RESUL T >400 INVAL IDATE S THE CALCU LATIO N FOR LDL FRACT IONAT ION - THE LDL RESUL T WILL NOT BE REPOR JAVAD. Not Available [facility] (Lab) [address] [place], [address], 04/30/2023 20:40:48 04/30/19 24 04/30/2023 HEPAT IC/LI ESTEBAN PANEL alkaline phosphatase 117 U/L 38-126 Not Available [facility] (Lab) [address] [place], [address], 04/30/2023 20:40:53 04/30/19 24 04/30/2023 HEPAT IC/LI ESTEBAN PANEL alanine aminotransfe rase 44 U/L 0-35 high Not Available [facility] (Lab) [address] [place], [address], 04/30/2023 20:40:53 04/30/19 24 04/30/2023 HEPAT IC/LI ESTEBAN PANEL aspartate aminotransfe rase 54 U/L 15-37 high Not Available [facility] (Lab) [address] [place], [address], 04/30/2023 20:40:53 04/30/19 24 04/30/2023 HEPAT IC/LI ESTEBAN PANEL bilirubin, total 0.60 mg/dL 0.20-1 .30 Not Available [facility] (Lab) [address] [place], [address], 04/30/2023 20:40:53 04/30/19 24 04/30/2023 HEPAT IC/LI ESTEBAN PANEL bilirubin, conjugated (direct) 0.00 mg/dL 0.00-0 .30 Not Available [facility] (Lab) [address] [place], [address], 04/30/2023 20:40:53 04/30/19 24 04/30/2023 HEPAT IC/LI ESTEBAN PANEL biliurubin,u ncong. (indirect) 0.40 mg/dL 0.00-1 .1 Not Available [facility] (Lab) [address] [place], [address], 04/30/2023 20:40:53 04/30/19 24 04/30/2023 HEPAT IC/LI ESTEBAN PANEL total protein 7.3 g/dL 6.3-8. 2 Not Available [facility] (Lab) [address] [place], [address], 04/30/2023 20:40:53 04/30/19 24 04/30/2023 HEPAT IC/LI ESTEBAN PANEL albumin 4.2 g/dL 3.0-4. 4 Not Available [facility] (Lab) [address] [place], [address], 04/30/2023 20:40:53 04/30/19 24 04/30/2023 HEPAT IC/LI ESTEBAN PANEL globulin 3.1 g/dL 2.6-4. 2 Not Available [facility] (Lab) [address] [place], [address], 04/30/2023 20:40:53 04/30/19 24 04/30/2023 HEPAT IC/LI ESTEBAN PANEL A/G ratio 1.4 ratio 1.0-2. 0 Not Available [facility] (Lab) [address] [place], [address], 04/30/2023 20:40:53 04/30/19 24 04/30/2023 VITAM IN D 25-HY DROXY [id number] 21.8 NG/mL 30-100 low Vitam in D Statu s: Defic ient: <20 ng/mL Insuf ficie nt: 20-29 ng/mL Suffi cient : 30-10 0 ng/mL Not Available [facility] (Lab) [address] [place], [address], 04/30/2023 20:53:14 07/03/19 24 07/03/2023 urina lysis , dipst ick Leukocytes (reference range: negative peter/ l) Trace Not Available [facility] [address], [place], [address], 07/02/2023 11:51:36 07/03/19 24 07/03/2023 urina lysis , dipst ick Nitrite (reference rage: negative mg/dl) negati ve Not Available [address], [place], [address], 07/02/2023 11:51:36 07/03/19 24 07/03/2023 urina lysis , dipst ick Urobilinogen (reference range: 0.2-1 mg/dl) 0.2 Not Available [address], [place], [address], 07/02/2023 11:51:36 07/03/19 24 07/03/2023 urina lysis , dipst ick Protein (reference range: negative mg/dl) Trace Not Available [address], [place], [address], 07/02/2023 11:51:36 07/03/19 24 07/03/2023 urina lysis , dipst ick pH (reference range: 5-7) 5.5 Not Available [address], [place], [address], 07/02/2023 11:51:36 07/03/19 24 07/03/2023 urina lysis , dipst ick Blood (reference range: negative Yamil/ l) Hemoly zed: Trace Not Available [address], [place], [address], 07/02/2023 11:51:36 07/03/19 24 07/03/2023 urina lysis , dipst ick Specific Otto (reference range: 1.005-1.030) 1.015 Not Available [address], [place], [address], 07/02/2023 11:51:36 07/03/19 24 07/03/2023 urina lysis , dipst ick Ketone (reference range: negative mg/dl) Trace Not Available [address], [place], [address], 07/02/2023 11:51:36 07/03/19 24 07/03/2023 urina lysis , dipst ick Bilirubin (reference range: negative mg/dl) Negati ve Not Available [address], [place], [address], 07/02/2023 11:51:36 07/03/19 24 07/03/2023 urina lysis , dipst ick Glucose (reference range: negative mg/dl) 1000 Not Available [address], [place], [address], 07/02/2023 11:51:36 07/03/19 24 07/03/2023 urina lysis , dipst ick Appearance Clear Not Available [address], [place], [address], 07/02/2023 11:51:36 07/03/19 24 07/03/2023 urina lysis , dipst ick Color Yellow Not Available [address], [place], [address], 07/02/2023 11:51:36 Result Notes None recorded. Problems Name Problem SNOMED Code Status Onset Date Resolution Date Notes Provider Name and Address Organization Details Recorded Time Postmenopa usal osteoporos is 906750934 Active 2021 Not Available [facility] 3 07:25:28 Pain of right shoulder joint 5559291401119 9100 Active 2021 Not Available [facility] 3 07:25:28 Asthma 441098082 Active 2017 Not Available [facility] 3 07:25:28 Hypothyroi dism 78713676 Active 2020 Not Available [facility] 3 07:25:28 Hyperlipid emia 23461890 Active 2023 Teresa De La Cruz APRN [address], [address], [place], [address] , [employer] [facility] 4 15:52:21 Diabetes mellitus 30991449 Active 2017 Not Available [facility] 3 07:25:29 Primary malignant neoplasm of female breast 31851366 Active 2018 Not Available [facility] 3 07:25:29 Uncontroll ed type 2 diabetes mellitus 893368496 Active 2023 Teersa De La Cruz APRN [address], [address], [place], [address] , [employer] [facility] 4 15:52:20 Dyslipidem ia 917791161 Active 2022 Not Available [facility] 3 07:25:28 Vitamin D deficiency 06639540 Active 2023 Teresa De La Cruz APRN [address], [address], [place], [address] , [employer] [facility] 4 15:52:20 Liver enzymes level above reference range 585064526 Active 2022 Not Available [facility] 3 07:25:28 Gastroesop hageal reflux disease without esophagiti s 199150484 Active 2023 Teresa De La Cruz APRN [address], [address], [place], [address] , [employer] [facility] 4 15:52:20 Dysuria 35994600 Active 2022 Not Available [facility] 3 07:25:28 Forgetful 80477362 Active 2022 Not Available [facility] 3 07:25:28 Well controlled type 2 diabetes mellitus 649508322 Active 2022 Not Available [facility] 3 07:25:28 Autoimmune liver disease 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 Active 2022 Not Available [facility] 3 07:25:28 Non-alcoho lic fatty liver 020561182 Active 2022 Not Available [facility] 3 07:25:28 Urinary incontinen ce 418431728 Active 2022 Anastasiya Collins MD [address], [address], [place], [address] , [place] [facility] 3 14:42:06 Diarrhea 20776539 Active 2022 Anastasiya Collins MD [address], [address], [place], [address] , [place] [facility] 3 17:17:13 Depressive disorder 10998510 Active 2022 Anastasiya Collins MD [address], [address], [place], [address] , [place] [facility] 3 17:17:48 Type 2 diabetes mellitus without complicati on 971265683 Active 2023 Anastasiya Collins MD [address], [address], [place], [address] , [place] [facility] 4 15:41:08 Multiple joint pain 94445064 Active 2023 Anastasiya Collins MD [address], [address], [place], [address] , [place] [facility] 4 15:56:04 Weakness of bilateral lower limb Active 2023 TIN Monreal [address], [address], [place], [address] , [place] [facility] 4 11:54:37 Joint pain 92586227 Active 2023 David Collier, [employer] [address], [address], [place], [address] , [place] [facility] 4 11:59:32 Cobalamin deficiency 359440940 Active 2023 David MAX CollierP-C [address], [address], [place], [address] , [place] [facility] 4 11:06:59 Acute urinary tract infection 780225207 Active 2023 David SHIVA Collier-C [address], [address], [place], [address] , [place] [facility] 4 12:05:31 Body mass index 30+ - obesity 729487494 Active 2023 Teresa De La Cruz APRN [address], [address], [place], [address] , [facility] 4 15:52:20 Recurrent urinary tract infection 808145378 Active 2023 Teresa De La Cruz APRN [address], [address], [place], [address] , [facility] 4 15:52:20 Chronic diarrhea 146264088 Active 2023 Teresa De La Cruz APRN [address], [address], [place], [address] , [facility] 4 15:52:20 Major depressive disorder 467880553 Active 2023 Teresa De La Cruz APRN [address], [address], [place], [address] , [facility] 4 15:52:20 History of bilateral mastectomy 579545589 Active 2023 Teresa De La Cruz APRN [address], [address], [place], [address] , [facility] 4 15:52:20 History of malignant neoplasm of breast 751685153 Active 2023 Teresa De La Cruz APRN [address] 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 Please review these documents and add these problems to the patient's chart manually as needed. Problem Notes None recorded. Procedures Surgical History Date Name Laterality Status Provider Name and Address Organization Details Recorded Time Gallbladder Surgery completed Not Available [facility] 04/10/2022 18:36:43 Masectomy completed Not Available [place] [address] 04/10/2022 18:36:43 tonsillectomy completed Not Available [facility] 04/10/2022 18:36:43 Imaging Results None recorded. Procedure Notes None recorded. Medical Equipment None Reported. Allergies Allergen ID Allergen Name Allergen Category Reaction Reaction Severity Criticality Documentation Date Start Date Code Code System Note Provider Name and Address Organization Details Recorded Time 57864 Substance with sulfonami de structure and antibacte rial mechanism of action (substanc e) medicatio n rash severe Not available 04/10/2022 34190 8003 SNOMED Not Available [facility] 18:40:58 Medications Name Sig Start Date Stop Date Status Note LastModified by Organization Details LastModified Time celecoxib 200 mg capsule TAKE 1 CAPSULE BY MOUTH EVERY DAY active Not Available Not Available No t Available metformin 500 mg tablet TAKE 2 TABLETS BY MOUTH TWICE DAILY 03/19 completed Not Available Not Available Not Available anastrozo le 1 mg tablet TAKE 1 TABLET BY MOUTH EVERY DAY active Not Available Not Available No t Available doxycycli ne hyclate 100 mg capsule TAKE 1 CAPSULE BY MOUTH TWICE A DAY FOR 10 DAYS 10/19 completed Not Available Not Available Not Available albuterol sulfate 2.5 mg/3 mL (0.083 %) solution for nebulizat ion Inhale 3 mL 3 times a day by nebuliza tion route as needed. active Not Available Not Available No t Available azithromy daniel 250 mg tablet TAKE 2 TABLETS ON DAY 1 THEN 1 TABLET DAILY FOR 4 DAYS UNTIL ALL TAKEN active Not Available Not Available No t Available ofloxacin 0.3 % eye drops 04/17 completed Not Available Not Available Not Available fluconazo le 150 mg tablet 1 po x 1 active Not Available Not Available Not Available citalopra m 10 mg tablet 04/17 completed Not Available Not Available Not Available hydrocodo ne 5 mg-acetam inophen 325 mg tablet TAKE ONE TABLET EVERY 6 HOURS NEEDED FOR PAIN 08/07 completed Not Available Not Available Not Available ondansetr on HCl 8 mg tablet Take 1 tablet every 8 hours by oral route as needed. 10/31 completed Not Available Not Available Not Available phenazopy ridine 200 mg tablet Take 1 tablet 3 times a day by oral route as needed for 3 days. active Not Available Not Available No t Available glipizide 10 mg tablet TAKE 2 TABLETS BY MOUTH TWICE A DAY FOR 90 DAYS active Not Available Not Available No t Available prednison e 20 mg tablet 2 po qAM x 5 days with food active Not Available Not Available No t Available cyanocoba amrita (vit B-12) 1,000 mcg tablet TAKE 2 TABLETS BY MOUTH DAILY 12/01 completed Not Available Not Available Not Available diphenoxy late-atro pine 2.5 mg-0.025 mg tablet TAKE 1-2 TABLETS BY MOUTH EVERY 4 HOURS NEEDED FOR DIARRHEA active Not Available Not Available No t Available topiramat e 25 mg tablet Take 1 tablet(s ) twice a day by oral route for 30 days. active Not Available Not Available No t Available ciproflox acin 250 mg tablet TAKE ONE TABLET BY MOUTH EVERY 12 HOURS X 7 DAYS active Not Available Not Available No t Available ciproflox acin 500 mg tablet TAKE 1 TABLET EVERY 12 HOURS BY ORAL ROUTE FOR 7 DAYS, FOR UTI. active Not Available Not Available No t Available omeprazol e 40 mg capsule,d elayed release TAKE 1 CAPSULE BY MOUTH EVERY DAY active Not Available Not Available No t Available aspirin 81 mg tablet,de layed release Take 1 tablet every day by oral route. 12/01 completed Not Available Not Available Not Available triamcino lone acetonide 0.1 % topical cream APPLY A THIN LAYER TOPICALL Y TO THE AFFECTED AREA(S) 2 TIMES PER DAY NEEDED FOR RASH active Not Available Not Available No t Available simvastat in 40 mg tablet Take 1 tablet every day by oral route. active Not Available Not Available No t Available levothyro xine 25 mcg tablet TAKE 1 TABLET BY MOUTH DAILY 2023 active Not Available Not Available Not Avai lable levothyro xine 75 mcg tablet TAKE 1 TABLET BY MOUTH EVERY DAY 06/12 completed Not Available Not Available Not Available meloxicam 7.5 mg tablet 1 po qday with food prn 01/16 completed Not Available Not Available Not Available levothyro xine 100 mcg tablet 04/17 completed Not Available Not Available Not Available oxycodone -acetamin ophen 5 mg-325 mg tablet 10/31 completed Not Available Not Available Not Available levothyro xine 88 mcg tablet TAKE ONE TABLET DAILY IN THE MORNING ON AN EMPTY STOMACH 01/13 completed Not Available Not Available Not Available amoxicill in 875 mg tablet Take 1 tablet every 12 hours by oral route for 10 days. active Not Available Not Available No t Available citalopra m 20 mg tablet TAKE 1 TABLET BY MOUTH DAILY 04/29 completed Not Available Not Available Not Available famotidin e 20 mg tablet TAKE 1 TABLET BY MOUTH TWICE DAILY NEEDED active Not Available Not Available No t Available prednisol one acetate 1 % [facility] 04[facility]17 completed Not Available Not Available Not Available lorazepam 0.5 mg tablet 1/2 to 1 tab po qday prn anxiety active Not Available Not Available No t Available methotrex ate sodium 2.5 mg tablet 01/16 completed Not Available Not Available Not Available rizatript an 10 mg disintegr ating tablet TAKE 1 TABLET BY MOUTH NOW AND MAY REPEAT IN 2 HOURS X 2 DOSES; MAX DOSE 30 MG (3 TABLETS) /24 HOURS active Not Available Not Available No t Available gemfibroz il 600 mg tablet TAKE 1 TABLET po TWICE A DAY 06/13 completed Not Available Not Available Not Available levothyro xine 50 mcg tablet TAKE 1 TABLET BY MOUTH DAILY 01/18 completed Not Available Not Available Not Available cephalexi n 500 mg capsule TAKE 1 CAPSULE BY MOUTH 4 TIMES A DAY UNTIL GONE 10/19 completed Not Available Not Available Not Available cyanocoba amrita (vit B-12) 1,000 mcg/mL injection solution 1 ml sc qmonth 12/01 completed Not Available Not Available Not Available nitrofura ntoin macrocrys rubina 100 mg capsule Take 1 capsule twice a day by oral route for 7 days. active Not Available Not Available No t Available tobramyci n 0.3 % eye drops 04/17 completed Not Available Not Available Not Available triamcino lone acetonide 0.1 % topical ointment APPLY A THIN LAYER TO THE AFFECTED AREA(S) BY TOPICAL ROUTE 2 TIMES PER DAY prn rash active Not Available Not Available No t Available nystatin 100,000 unit/gram topical cream APPLY TO THE AFFECTED AREA(S) BY TOPICAL ROUTE 2 TIMES PER DAY x 7 days active Not Available Not Available No t Available ranitidin e 150 mg tablet TAKE ONE TABLET TWICE DAILY NEEDED active Not Available Not Available No t Available Advair Diskus 250 mcg-50 mcg/dose powder for inhalatio n Inhale 1 puff twice a day by inhalati on route. 10/31 completed Not Available Not Available Not Available BD Luer-Amari Syringe 3 mL 25 gauge x 1 FOR USE WITH CYANOCOB ALAMIN INJECTIO N active Not Available Not Available No t Available Advair Diskus 500 mcg-50 mcg/dose powder for inhalatio n 01/07 completed Not Available Not Available Not Available oxybutyni n chloride ER 5 mg tablet,ex tended release 24 hr Take 1 tablet twice a day by oral route for 90 days. 10/08 completed Not Available Not Available Not Available folic acid 1 mg tablet 01/17 completed Not Available Not Available Not Available codeine 10 mg-guaife nesin 100 mg/5 mL oral liquid Take 10 mL every 4 hours by oral route as needed. active Not Available Not Available No t Available furosemid e 20 mg tablet TAKE 1 TABLET BY MOUTH DAILY NEEDED active Not Available Not Available No t Available ergocalci ferol (vitamin D2) 1,250 mcg (50,000 unit) capsule TAKE 1 CAPSULE BY MOUTH WEEKLY ON SAME DAY EACH WEEK active Not Available Not Available No t Available levofloxa daniel 500 mg tablet 04/17 completed Not Available Not Available Not Available methylpre dnisolone 4 mg tablets in a dose pack take as directed with food in AM 12/30 completed Not Available Not Available Not Available albuterol sulfate HFA 90 mcg/actua tion aerosol inhaler INHALE 2 PUFFS EVERY 4 HOURS NEEDED 08/07 completed Not Available Not Available Not Available celecoxib 100 mg capsule 09/03 completed Not Available Not Available Not Available fluticaso ne propionat e 50 mcg/actua tion nasal spray,nikhil pension 2 sprays each nostril qday active Not Available Not Available No t Available colestipo l 1 gram tablet TAKE 2 TABLETS BY MOUTH EVERY MORNING 2023 active Not Available Not Available Not Avai lable atenolol 50 mg tablet TAKE ONE-HALF TABLET BY MOUTH DAILY active Not Available Not Available No t Available glipizide 5 mg tablet TAKE 2 TABLETS BY MOUTH TWICE DAILY 10/19 completed Not Available Not Available Not Available spironola ctone 50 mg tablet Take 1 tablet every day by oral route. 01/16 completed Not Available Not Available Not Available escitalop mirza 20 mg tablet TAKE 1 TABLET BY MOUTH EVERY DAY active Not Available Not Available No t Available cyclobenz aprine 5 mg tablet active Not Available Not Available No t Available Vigamox 0.5 % eye drops 04/17 completed Not Available Not Available Not Available bupropion HCl XL 150 mg 24 hr tablet, extended release TAKE 1 TABLET BY MOUTH EVERY DAY active Not Available Not Available No t Available topiramat e 50 mg tablet Take 1 tablet twice a day by oral route for 30 days. active Not Available Not Available No t Available nitrofura ntoin monohydra te/macroc rystals 100 mg capsule TAKE 1 CAPSULE BY MOUTH EVERY 12 HOURS FOR 5 DAYS 10/19 completed Not Available Not Available Not Available BD Ultra-Fin e Short Pen Needle 31 gauge x 5/16 USE TO INJECT ONCE DAILY active Not Available Not Available No t Available aripipraz ole 2 mg tablet TAKE 1 TABLET BY MOUTH EVERY DAY 10/09 completed Not Available Not Available Not Available Januvia 100 mg tablet Take 1 tablet every day by oral route. active Not Available Not Available No t Available Janumet 50 mg-500 mg tablet Take 1 tablet twice a day by oral route. 04/29 completed Not Available Not Available Not Available Lantus Solostar U-100 Insulin 100 unit/mL (3 mL) subcutane ous pen INJECT 10 UNITS UNDER THE SKIN ONCE DAILY active Not Available Not Available No t Available diclofena c epolamine 1.3 % transderm al 12 hour patch Apply 1 patch twice a day by transder mal route before meals for 90 days. active Not Available Not Available No t Available Novofine 32 32 gauge x 1/4 needle 08/07 completed Not Available Not Available Not Available GaviLyte- G 236 gram-22.7 4 gram-6.74 gram-5.86 gram oral solution TAKE DIRECTED active Not Available Not Available No t Available Prolia 60 mg/mL subcutane ous syringe inject 60 mg SQ once in subcutan eous area x 1 / repeat every 6 months active Not Available Not Available No t Available Janumet XR 100 mg-1,000 mg tablet,ex tended release Take 1 tablet every day by oral route. active Not Available Not Available No t Available Myrbetriq 25 mg tablet,ex tended release Take 1 tablet every day by oral route. 2022 active Not Available Not Available Not Avai lable Victoza 2-George 0.6 mg/0.1 mL (18 mg/3 mL) subcutane ous pen injector Inject 1.2 mg every day by subcutan eous route for 90 days. 04/16 completed Not Available Not Available Not Available icosapent ethyl 1 gram capsule Take 2 capsules twice a day by oral route before meals for 90 days. 10/08 completed pt has reduced to take 1 pill a day due to nausea Not Available Not Available Not Available Ilevro 0.3 % eye drops,nikhil pension 04/17 completed Not Available Not Available Not Available Farxiga 10 mg tablet Take 1 tablet every day by oral route in the morning for 90 days. 04/29 completed Not Available Not Available Not Available cyanocoba amrita (vit B-12) 2,000 mcg tablet Take 1 tablet every day by oral route for 90 days. 12/01 completed Not Available Not Available Not Available Trulicity 1.5 mg/0.5 mL subcutane ous pen injector Inject 1.5 mg every week by subcutan eous route at dinner for 90 days. 11/15 completed Not Available Not Available Not Available Trulicity 0.75 mg/0.5 mL subcutane ous pen injector INJECT ONE DOSE UNDER THE SKIN ONCE WEEKLY 12/09 completed Not Available Not Available Not Available Dexcom G6 Sensor device DIRECTED sensor 08/07 completed Not Available Not Available Not Available Rybelsus 7 mg tablet TAKE 1 TABLET BY MOUTH EVERY DAY active Not Available Not Available No t Available Rybelsus 3 mg tablet TAKE 1 TABLET BY MOUTH EVERY DAY 10/09 completed Not Available Not Available Not Available Paxlovid 300 mg (150 mg x 2)-100 mg tablets in a dose pack 1 dose po bid x 5 days 08/29 completed Not Available Not Available Not Available Mounjaro 5 mg/0.5 mL subcutane ous pen injector Inject 0.5 mL every week by subcutan eous route. 02/06 completed Not Available Not Available Not Available Mounjaro 2.5 mg/0.5 mL subcutane ous pen injector 1 injectio n sc qweek 12/26 completed Not Available Not Available Not Available Vitals Date Recorded Body height Body mass index (BMI) Body weight Body temperature Heart rate Oxygen saturation Oxygen saturation in Arterial blood by Pulse oximetry Systolic blood pressure Diastolic blood pressure Provider Name and Address Organization Details Last Updated DateTime 3 149.86 cm 37 kg/m2 68649.4 g 97.2 [degF] 84 /min 94 % 94 % 124 mm[Hg] 76 mm[Hg] LAITH Mccarthy [facility] 3 17:09:55 Date Recorded Body height Body mass index (BMI) Body weight Body temperature Heart rate Oxygen saturation Oxygen saturation in Arterial blood by Pulse oximetry Systolic blood pressure Diastolic blood pressure Provider Name and Address Organization Details Last Updated DateTime 4 149.86 cm 35.7 kg/m2 12616.8 5 g 98.4 [degF] 86 /min 98 % 98 % 140 mm[Hg] 92 mm[Hg] LAITH Mccarthy [facility] [employer] [facility] 4 15:36:09 Date Recorded Body height Body mass index (BMI) Body weight Body temperature Heart rate Oxygen saturation Oxygen saturation in Arterial blood by Pulse oximetry Systolic blood pressure Diastolic blood pressure Provider Name and Address Organization Details Last Updated DateTime 4 149.86 cm 36 kg/m2 08486.4 4 g 97.5 [degF] 90 /min 96 % 96 % 136 mm[Hg] 76 mm[Hg] Cyrus Bhatt RN [facility] [employer] [facility] 4 11:23:59 Date Recorded Body height Body mass index (BMI) Body weight Body temperature Heart rate Oxygen saturation Oxygen saturation in Arterial blood by Pulse oximetry Systolic blood pressure Diastolic blood pressure Provider Name and Address Organization Details Last Updated DateTime 4 149.86 cm 37.6 kg/m2 02373.1 8 g 98.3 [degF] 71 /min 94 % 94 % 120 mm[Hg] 62 mm[Hg] Ilana Johnson RN [facility] [employer] [facility] 4 15:38:23 Social History Question Answer Notes LastModified by Organizat ion Details LastModified Time Tobacco Smoking Status Never Smoker Not Available [facility] 04/10/2022 18:36:31 Do You Have An Advance Directive? No [id number] Information not available 04/10/2022 What Is Your Level Of Alcohol Consumption? None MIGRATION.[id number] 026 Information not available 04/10/2022 Do You Wear A Helmet When Biking? Yes MIGRATION.[id number] 026 Information not available 04/10/2022 Are You Blind Or Do You Have Difficulty Seeing? No MIGRATION.[id number] 026 Information not available 04/10/2022 What Is Your Level Of Caffeine Consumption? Moderate MIGRATION.[id number] 026 Information not available 04/10/2022 Are You Deaf Or Do You Have Serious Difficulty Hearing? No MIGRATION.[id number] 026 Information not available 04/10/2022 What Type Of Diet Are You Following? REGULAR MIGRATION.[id number] 026 Information not available 04/10/2022 What Is The Highest Grade Or Level Of School You Have Completed Or The Highest Degree You Have Received? [id number] MIGRATION.[id number] 026 Information not available 04/10/2022 Have There Been Any Changes To Your Family Or Social Situation? No MIGRATION.[id number] 026 Information not available 04/10/2022 What Is The Fluoride Status Of Your Home? Non-fluoridat ed MIGRATION.[id number] 026 Information not available 04/10/2022 Are There Any Guns Present In Your Home? No MIGRATION.3479204 026 Information not available 04/10/2022 What Was The Date Of Your Most Recent Tobacco Screening? 08/07/2021 MIGRATION.[id number] 026 Information not available 04/10/2022 Have You Ever Been Counseled For Unhealthy Alcohol Use? No MIGRATION.7503191 026 Information not available 04/10/2022 Do You Have Any Pets? Yes MIGRATION.0154931 026 Information not available 04/10/2022 What Is Your Relationship Status? MIGRATION.6348815 026 Information not available 04/10/2022 Do You Use Your Seat Belt Or Car Seat Routinely? Yes MIGRATION.2004336 026 Information not available 04/10/2022 Do You Have Smoke And Carbon Monoxide Detectors In Your Home? Yes MIGRATION.5765356 026 Information not available 04/10/2022 Are You Passively Exposed To Smoke? No MIGRATION.6388765 026 Information not available 04/10/2022 Are There Any Smokers In Your House? No MIGRATION.2375375 026 Information not available 04/10/2022 Do You Participate In Social StayNTouch? No MIGRATION.8653366 026 Information not available 04/10/2022 Do You Feel Stressed (tense, Restless, Nervous, Or Anxious, Or Unable To Sleep At Night)? [id number] MIGRATION.7683580 026 Information not available 04/10/2022 Do You Use Any Illicit Or Recreational Drugs? No MIGRATION.3615601 026 Information not available 04/10/2022 Do You Use Sunscreen Routinely? No MIGRATION.0032373 026 Information not available 04/10/2022 Are You Currently In School? No MIGRATION.4826028 026 Information not available 04/10/2022 Do You Have Any Dietary Restrictions? No MIGRATION.0078673 026 Information not available 04/10/2022 Sex: Unknown Functional Status Question Answer Note LastModified by Organizat ion Details LastModified Time Do you have difficulty walking or climbing stairs? No MIGRATION.2564245 026 Information not available 04/10/2022 Do you have transportation difficulties? No MIGRATION.7044896 026 Information not available 04/10/2022 Are you able to walk? YESWOREST MIGRATION.6785364 026 Information not available 04/10/2022 Do you have difficulty doing errands alone? No MIGRATION.6176303 026 Information not available 04/10/2022 Are you able to care for yourself? Yes MIGRATION.5855820 026 Information not available 04/10/2022 Do you have difficulty dressing or bathing? No MIGRATION.8214591 026 Information not available 04/10/2022 What is your exercise level? None MIGRATION.2824928 026 Information not available 04/10/2022 Mental Status Question Answer Note LastModified by Organizat ion Details LastModified Time Do you have difficulty concentrating, remembering or making decisions? No MIGRATION.[id number] 6 Information not available 04/10/2022 Family History Relationship Description Onset Age of this Age Resolved Age Notes LastModified by Organization Details LastModified Time Father Diabetes mellitus MIGRATION.239 [id number] Not available 04/10/2022 18:36:44 Sister Malignant tumor of breast MIGRATION.191 [id number] Not available 04/10/2022 18:36:44 Sister Malignant tumor of pancreas MIGRATION.800 [id number] Not available 04/10/2022 18:36:44 Mother Dementia MIGRATION.[id number] Not available 04/10/2022 18:36:44 Medical History Condition Response CANCER: SPECIFY Y THYROID DISEASE Y ARTHRITIS Y DIABETES, TYPE Y URINARY/BLADDER/KIDNEY PROBLEMS Y USE OF NSAIDS Y HAVE YOU BEEN HOSPITALIZED OR SEEN IN [facility] IN THE PAST YEAR ? Y HYPERTENSION Y HIGH CHOLESTEROL / HYPERLIPIDEMIA Y Gynecological HistoryNo gynecological history recorded. Obstetrics History GPAL:G 0 P 0 0 0 0 Immunizations Vaccine Type Date Status Note Provider [facility] e and Address Organization Details Recorded Time COVID-19, mRNA, LNP-S, PF, 100 mcg/0.5mL dose or 50 mcg/0.25mL dose 1 completed Teresa De La Cruz, MADDIE [address] [facility], [facility] [address], [place], [address], [place] [employer] 10/20/2023 15:52:32 Influenza, high-dose, quadrivalent, PF 2 completed Not Available [facility] 09/05/2022 07:25:29 Influenza, high-dose, quadrivalent, PF 1 completed Not Available [facility] 09/05/2022 07:25:29 Influenza, high-dose, quadrivalent, PF 0 completed Not Available [facility] 09/05/2022 07:25:29 Influenza, high-dose, trivalent, PF 0 completed Not Available [facility] 09/05/2022 07:25:29 Pneumococcal conjugate PCV 13 8 completed Not Available [facility] 09/05/2022 07:25:29 Influenza, high-dose, trivalent, PF 8 completed Not Available [facility] 09/05/2022 07:25:29 COVID-19, mRNA, LNP-S, PF, kendall-sucrose, 30 mcg/0.3 mL 4 completed Teresa De La Cruz APRN [address], [address], [place], [address], [facility] [employer] [facility] [employer] [facility] 10/20/2023 15:52:54 zoster recombinant 4 completed Teresa De La Cruz APRN [address], [place], [address], [facility] [employer] [facility] [employer] [facility] 10/20/2023 15:53:02 zoster recombinant 3 completed Teresa De La Cruz APRN [address], [address], [place], [address], [employer] [facility] [employer] [facility] 10/20/2023 15:53:37 COVID-19, mRNA, LNP-S, PF, 100 mcg/0.5mL dose or 50 mcg/0.25mL dose 1 completed Teresa De La Cruz APRN [address], [address], [place], [address], [employer] [facility] [employer] [facility] 10/20/2023 15:52:32 COVID-19, mRNA, LNP-S, PF, 100 mcg/0.5mL dose or 50 mcg/0.25mL dose 1 completed Teresa De La Cruz APRN [address], [place], [address], [facility] [employer] [facility] [employer] [facility] 10/20/2023 15:52:32 COVID-19, mRNA, LNP-S, PF, 100 mcg/0.5mL dose or 50 mcg/0.25mL dose completed Teresa De La Cruz, DRAGSAW OPERATOR [address] [facility], [address], [place], [address], [facility] 10/20/2023 15:52:32 Past Encounters Encounter ID Performer Location Encounter Start Date Encounter Closed Date Diagnosis/Indication Diagnosis SNOMED-CT Code Diagnosis ICD10 Code Diagnosis Note [id number] [facility] [place] [address] [facility] [address] [place] [address] 06/09/2020 00:00:00 06/09/2020 18:17:29 [id number] [facility] [place] [address] [facility] [address] [place] [address] 09/18/2020 00:00:00 09/18/2020 17:05:38 [id number] [facility] [place] [address] [place] [address] [address] [place] [address] 01/17/2021 00:00:00 02/08/2021 08:59:35 [id number] [facility] [place] [address] [place] [address] [address] [place] [address] 01/19/2021 00:00:00 01/19/2021 16:04:19 [id number] [facility] [place] [address] [place] [address] [address] [address] 06/27/2021 00:00:00 07/09/2021 20:15:18 [id number] [facility] [place] [address] [place] [address] [address] [facility] [place] [address] 07/24/2021 00:00:00 07/30/2021 21:19:27 [id number] [facility] [place] [address] [facility] [address] [place] [address] 08/07/2021 00:00:00 08/07/2021 10:07:08 [id number] _ATHENA_M IGRATION_ DEFAULT_1 _1 , 08/16/2021 00:00:00 08/16/2021 15:26:39 [id number] [facility] [place] [address] [place] [address] 08/24/2021 00:00:00 08/24/2021 11:58:09 [id number] [facility] [place] [address] [place] [address] 09/18/2021 00:00:00 09/18/2021 12:36:09 [id number] _ATHENA_M IGRATION_ DEFAULT_1 _1 , 09/27/2021 00:00:00 09/27/2021 13:48:33 [id number] [facility] [place] [address] [place] [address] 10/05/2021 00:00:00 10/05/2021 15:09:16 [id number] [facility] [place] [address] [place] [address] 11/06/2021 00:00:00 11/06/2021 17:32:43 [id number] [facility] [place] [address] [place] [address] 11/15/2021 00:00:00 12/09/2021 22:52:40 [id number] [facility] [place] [address] [place] [address] 12/26/2021 00:00:00 01/08/2022 20:26:17 [id number] [facility] [place] [address] [place] [address] 02/06/2022 00:00:00 02/06/2022 11:38:13 [id number] [facility] [place] [address] [place] [address] 03/19/2022 00:00:00 03/19/2022 11:59:23 [id number] Anastasiya [place] MD [facility] [place] [address] [place] [address] 04/29/2022 10:18:49 04/29/2022 11:15:40 Uncontrolled type 2 diabetes mellitus [id number] E11.65 not in good controlcon tinue janumet xr 100/1000 mg once per day in AM-samples givenincre ase rybelsus 7 mg daily with foodf/u in 4 weeks or sooner if needed [id number] Luna Anand MD [facility] [place] [address] [place] [address] 05/13/2022 09:34:32 05/13/2022 10:58:00 Uncontrolled type 2 diabetes mellitus 308870171 E11.65 a1c of 10.1% up from 8.2%- patient admits to poor diet and lack of exercise. Will add farxiga 5 mg daily x 1 week (sample provided) and if well tolerated uptitrate to 10 mg daily - patient advised to drink adequate water up to 64 ozs per day due to loss of calories and sugar through renal excretion- she was advised to contact clinic with any concern of dizziness, lightheade dness, flank pain or urinary pain or discomfort that might suggest the need for a urinalysis . Trulicity was costly so patient now taking rybelsus 7 mg daily and tolerating well. Continue janumet and glipizide per PCP. Discussed carb counting and how to read food labels. Recommende d patient to utilize the diabetesfo Mobilinga.Go Try It On from the ADA website to help with food preparatio n as this presents ideal carb content per meal so this will make carb counting much easier for patient. Recommende d she incorporat e natural insulin dentistry teacher s such as pears, apples, cinnamon, rea and sweet potatoes to help mobilize her endogenous insulin. Recommende d up to 150 minutes of moderate level activity/e xercise weekly. Dyslipidemia 871686970 E 78.5 LDL in range- continue statin therapy- TG levels over 300 mg/dL- will trial on vascepa 2 grams twice daily with meals. Continue low dose LT4 25 mcg daily- monitor thyroid function. Postmenopa usal osteoporosis 908675333 M81.0 Will provide prolia injection in clinic today- due for repeat in early November. Repeat bone density in spring 2023 to monitor progress. Vitamin D deficiency 347 54992 E55.9 Start on vitamin D 50 once weekly as levels low- goal vit D of 50 ng/mL to optimize bone and immune health. Liver enzy mes level above reference range 055914893 R74.01 Send for liver ultrasound and secondary workup to assess etiology of liver enzyme elevation. Spent up to 28 minutes preparing to see the patient (eg, review of tests), obtaining and/or reviewing separately obtained history, performing a medically appropriat e examinatio n and evaluation , counseling and educating the patient, ordering medication s, tests, along with documentin g clinical informatio n in the electronic health record, independen tly interpreti ng results and communicat ing results to the patient. RTC in 3-4 months. Patient was provided a handwritte n lab order which contains our fax number. If she chooses to go outside of the [facility] system to obtain labwork she was advised to provide our fax number and my informatio n to the lab she will be obtaining labwork from in order to have her labs properly forwarded over for me to review so there is no loss of follow up due to use of outside network. She was also advised to contact our clinic informing us that she has completed her labwork so we are aware we will need to reach out to the appropriat e laboratory to request her results be forwarded to us so I might have the ability to review and make further medical decision making in her case. She voiced understand ing. [id number] Anastaisya Collins MD [facility] Primary Care [facility] [address] [facility] [address] [place] [address] 05/30/2022 12:19:24 05/30/2022 12:39:31 Uncontrolled type 2 diabetes mellitus [id number] E11.65 not in good controlcon tinue janumet xr 100/1000 mg once per day in AM-samples givenincre ase rybelsus 7 mg daily with foodf/u in 4 weeks or sooner if needed 05/30/22 improved-c ontinue farxiga, rybelsus, janumet xrf/u in 3 months [id number] Anastasiya Collins MD [facility] Primary Care [facility] [place] [address] [facility] [address] [facility] [address] 08/29/2022 13:55:58 08/29/2022 14:56:39 Uncontrolled type 2 diabetes mellitus 042300404 E11.65 stablehas labs ordered by endocrine For[employer] 08949681 R41.3 MMSE 29/30mood may be playing a significan t roled/c citalopram 20 mg dailytrial of escitalopr am 20 mg dailyf/u in 4 weeks or sooner if needed Dysuria 15523659 R30.0 [id number] Luna Anand MD [facility] [place] [address] [place] [address] 09/03/2022 10:18:07 09/03/2022 11:34:04 Well controlled type 2 diabetes mellitus 346446210 E11.9 A1 of 7.3% down from 10.1%- continue on farxiga 10 mg daily and continued on janumet and glipizide. Provided rybelsus samples at low dose. Discussed carb counting and how to read food labels. Recommende d patient to utilize the diabetesfo Mobiling[employer].Go Try It On from the ADA website to help with food preparatio n as this presents ideal carb content per meal so this will make carb counting much easier for patient. Recommende d she incorporat e natural insulin dentistry teacher s such as pears, apples, cinnamon, rea and sweet potatoes to help mobilize her endogenous insulin. Recommende d up to 150 minutes of moderate level activity/e xercise weekly. Non-alcoho lic fatty liver 947663533 K76.[address]- patient has positive CHON and nonreactiv e hepatitis panel- she was eating a high fatty diet and encouraged to restrict her fat in diet-refer for further evaluation . Spent up to 25 minutes preparing to see the patient (eg, review of tests), obtaining and/or reviewing separately obtained history, performing a medically appropriat e examinatio n and evaluation , counseling and educating the patient, ordering medication s, tests, along with documentin g clinical informatio n in the electronic health record, independen tly interpreti ng results and communicat ing results to the patient. Patient can be followed by PCP - she/he is aware of my resignatio n and last day of November 22. If needed his/her PCP can refer patient to another endocrinol ogist in the area. All questions /concerns answered and refills necessary at visit today. [id number] Anastasiya Collins MD [facility] Primary Care [address] [place] [address] 10/08/2022 14:23:10 10/08/2022 14:56:14 Hyperlipidemia 59019410 E78.5 continue simvastati n 40 mg dailycanno t tolerate vascepa Urinary incontinence 165 317254 R32 sample given of myrbetriq 25 mg qday Forgetful 55974509 R41.3 MMSE mood may be playing a significan t roled/c citalopram 20 mg dailytrial of escitalopr am 20 mg dailyf/u in 4 weeks or sooner if needed update 10/08/22: Improved with escitalopr am 20 mg daily [id number] Anastasiya Collins MD [facility] Primary Care [address] [address] 12/26/2022 17:04:48 12/26/2022 17:26:01 Diarrhea 32595027 R19.7 lomotil prnhold janumetsam ple given of januvia 100 mg daily to see if d/c metformin helps diarrheaf/ u in 8 weeks Depressive disorder 3548 9007 F32.A not in good controladd aripiprazo le 2 mg po qdayReview ed potential med s/e, d/c and be seen if any si/hif/u in 8 weeks or sooner if needed [id number] Anastasiya Collins MD [facility] Primary Care [address] [address] 04/30/2023 15:27:09 04/30/2023 16:06:18 Depressive disorder 41705601 F32.A not in good controladd aripiprazo le 2 mg po qdayReview ed potential med s/e, d/c and be seen if any si/hif/u in 8 weeks or sooner if needed update 04/30/23: ok to remain off aripiprazo lepsychiat ry referral given Type 2 good betes mellitus without complication 051585783 E11.9 was in better control on januvia and rybelsusst ay off metformin due to GI symptomsch ravi labs Vitamin D deficiency 347 00062 E55.9 Hyperlipidemia 96765374 E78.5 continue simvastati n 40 mg dailycanno t tolerate vascepa Multiple joint pain 3567 8005 M25.50 Refill given [id number] SHIVA Monreal-C [facility] Primary Care [address] [place] [address] 07/02/2023 11:15:17 07/02/2023 12:15:10 Dysuria 57204580 R30.0 R30.9 -burning, frequency- right flank pain-urine dip, UA obtained Diarrhea 33968066 R19.7 -possibly related to medication s-was given lomotil with some positive results-lo w natural fiber intake, encouraged to increase rather than starting new meds Weakness o f bilateral lower limb [id number] 59763 M62.81 -noting new weakness to lower legs-PT referral given Joint pain 09840958 M25. 50 -pt has concerns for gout, ruling out with labs [id number] SHIVA Monreal-Inga [facility] Primary Care [address] [address] 07/03/2023 16:13:32 08/04/2023 17:50:09 [id number] SHIVA Monreal-Inga [facility] [address] [address] [address] 08/08/2023 15:25:50 08/08/2023 16:10:14 Diarrhea 30705435 R19.7 refill lomotil givenencou raged to use daily Type 2 good betes mellitus without complication 982739406 E11.9 increasing rybelsus to 7mg Hyperlipidemia [id number] E78.5 Anemia screening 07 Z13.0 Health Concerns Section Related Observation LastModified by Organization Detai ls LastModified Time None Recorded Concern Status LastModified by Organization Details LastModified Time None Recorded Advance Directives Directive N: Payers Encounter Date Sequence Insurance Name Policy Number Policy Kraft Covered Member ID Kraft Member ID Guarantor Name 12/26/[address] [facility] (MEDICARE REPLACEMENT/A DVANTAGE - HMO) [id number] Anu Hedrick [id number] Anu Hedrick 04/30/2023 1 [employer] (MEDICARE REPLACEMENT HMO) [id number] Anu Hedrick [id number] Anu Hedrick 07/02/2023 1 [employer] (MEDICARE REPLACEMENT HMO) [id number] L Anu Hedrick [id number] Anu Hedrick 07/03/2023 1 [employer] (MEDICARE REPLACEMENT HMO) [id number] L Anu Hedrick [id number] Anu Hedrick 08/08/2023 1 [employer] (MEDICARE REPLACEMENT HMO) [id number] Skip Hedrick [id number] Anu Hedrick Notes Date Note Type Note Provider Name and Address Organization Details Recorded Time 12/26/2022 text/html Not doing good, feels tired all the time. She goes in between constipation and diarrhea. No abd pain. Concerned about forgetfulness, no word finding difficulties, but forgets names, conversations. She is lonely right now, daughter is out of town. She does feel sad and anxious. update 10/08/22: not able to take vascepa due diarrhea, got better when she stopped it. Mood and memory are better on escitalopram 20 mg daily. She is struggling with overactive bladder, it keeps her from being as social as she would like update 12/26/22: Has diarrhea that can be severe, she has to change clothes multiple times per day on a bad day when she is at home. Has upcoming wedding and would like a solution for that day. No ambition, feels blah, no energy Anastasiya Collins MD [address] [facility], [facility] [address], [place], [address], [facility] [employer] 01/08/2023 17:55:42 04/30/2023 text/html Not doing good, feels tired all the time. She goes in between constipation and diarrhea. No abd pain. Concerned about forgetfulness, no word finding difficulties, but forgets names, conversations. She is lonely right now, daughter is out of town. She does feel sad and anxious. update 10/08/22: not able to take vascepa due diarrhea, got better when she stopped it. Mood and memory are better on escitalopram 20 mg daily. She is struggling with overactive bladder, it keeps her from being as social as she would like update 12/26/22: Has diarrhea that can be severe, she has to change clothes multiple times per day on a bad day when she is at home. Has upcoming wedding and would like a solution for that day. No ambition, feels blah, no energy update 04/30/23: mood not so good. Her family and friends were concerned about the aripiprazole so she d/c it after a few days. She does think it may have made her a bit more sleepy. She continues to feel tired, she will lay down for a few minutes then finds it has been 2 hours. She wishes she could have adderall for some energy. Blood sugars are elevated now, can be 300 in AM but she is out of Januvia. They were much better on Januvia and rybelsus 3 mg daily. Anastasiya Collins MD [address] [facility] [address] [address], [place], [address], [employer] 05/11/2023 09:11:33 07/02/2023 text/html pt is here for f/u [facility] [address], [address] [address], [place], [address], [employer] 07/02/2023 12:23:40 08/08/2023 text/html pt is here for f/u [facility] [address] [address], [place], [address], [employer] 08/08/2023 15:57:56 OBGyn Episode No OBEpisode recorded.
--- OUTSIDE RECORDS SUMMARY | 2024-04-05 17:10 | XMS_ITS | Clinical Summary ---
Author Organization [facility] Address [facility] [place] [address] Care Team Providers Care Aerologist Name Role Phone Unavailable Primary Care Provider Unavailabl e Social History Tobacco Use Types Packs/Day Years Used Date Smoking Tobacco: Never Assessed Comments Unknown Sex and Gender Information Value Date Recorded Sex Assigned at Not on file Legal Sex Female 7:31 AM [employer] Gender Identity Not on file Sexual Orientation Not on file Plan of Treatment Health Maintenance Due Date Last Done Comments Hepatitis C 12/28/1963 DTaP, Tdap and Td Vaccines ( 1 - Tdap) 1964 Zoster Vaccines (1 of 2) 12/28/1995 Dexa Scan (General) 2010 Pneumococcal Vaccine: 65+ Ye ars (1 of 1 - PCV) 2010 RSV Immunization or 60+ Years (1 - 1-dose 75+ series) 2020 COVID-19 Vaccine (2023-2 5 season) 2023 Influenza Adult (#1) 2023 Meningococcal B Vaccine Aged Out No l onger eligible based on patient's age to complete this topic Meningococcal Vaccine Aged Out No dilip christopher eligible based on patient's age to complete this topic RSV Immunizations Under 20 Months Aged Out No longer eligible based on patient's age to complete this topic
--- OUTSIDE RECORDS SUMMARY | 2024-04-05 17:10 | XMS_ITS | Data Portability ---
Author Organization [facility] Address [address] [place] [address] Care Team Providers Care Frame Coverer Name Role Phone RONA BARRON Primary Care Provider Unavailab le Assessment Encounter Date Assessment Date Assessment LastModified by Organization Details LastModified Time 10/10/2023 10/10/2023 Follow-up appointment scheduled for November 27 with provider doron Not available 10/13/2023 11:21:43 11/28/2023 11/28/2023 Next appointment scheduled for February 26 Not available 12/14/2023 17:22:40 Plan of Treatment Reminders Order Date Submit Date Provider Last Modified By Organization Details Last Modified Time Details Appointments ANY 15 2024 02:15P M NICA Escoto Not available Not available Not available Lab HbA1c (hemog lobin A1c), blood 2024 025 [facility], [address], [place], [address], 04/05/2024 03:07:04 BMP, serum or plasma 2024 025 [facility], [address], [place], [address], 04/05/2024 03:07:04 hepati c functi on panel, serum 2024 025 [facility], [address], [place], [address], 04/05/2024 03:07:04 CBC w/ auto diff 2024 025 [facility], [address], [place], [address], 04/05/2024 03:07:05 HbA1c (hemog lobin A1c), blood 2023 024 [facility] (Outpatient Orders), [address] [place], [address], 01/30/2024 19:35:44 microa lbumin , urine 2023 024 [facility], [address], [place], [address], 01/27/2024 13:07:30 cultur e, urine 2023 024 [facility], [address], [place], [address], 01/28/2024 09:10:51 urinal ysis, comple te 2023 024 [facility], [address], [place], [address], 01/27/2024 13:07:32 CBC w/ auto diff 2023 024 [facility] (Outpatient Orders), [address] [place], [address], 01/30/2024 19:34:54 hepati c functi on panel, serum 2023 024 [facility] (Outpatient Orders), [address] [place], [address], 01/30/2024 19:35:19 BMP, serum or plasma 2023 024 [facility] (Outpatient Orders), [address] [place], [address], 01/30/2024 19:36:08 lipid panel, serum 2023 024 [facility] (Outpatient Orders), [address] [place], [address], 01/30/2024 19:35:32 cultur e, urine 2023 024 [facility] (Outpatient Orders), [address] [place], [address], 10/31/2023 15:13:58 urinal ysis, comple te 2023 024 [facility] (Outpatient Orders), [address] [place], [address], 10/29/2023 10:14:48 CBC w/ auto diff 2023 024 [facility] (Outpatient Orders), [address] [place], [address], 10/29/2023 10:14:49 hepati c functi on panel, serum 2023 024 [facility] (Outpatient Orders), [address] [place], [address], 10/29/2023 10:14:45 BMP, serum or plasma 2023 024 [facility] (Outpatient Orders), [address] [place], [address], 10/29/2023 10:14:46 TSH + free T4, serum 2023 024 [facility] (Outpatient Orders), [address] [place], [address], 10/29/2023 10:14:44 lipid panel, serum 2023 024 [facility] (Outpatient Orders), [address] [place], [address], 10/29/2023 10:14:44 vitami n B12 + folate , serum or blood 2023 024 [facility] (Outpatient Orders), [address] [place], [address], 10/29/2023 10:14:47 HbA1c (hemog lobin A1c), blood 2023 024 [facility] (Outpatient Orders), [address] [facility] [address] [facility], [place], [address], 10/29/2023 10:14:48 Referral nutrit ionist /dieti robert referr al [address] [facility], [address] [facility] [address], [place], [address], 03/15/2024 13:03:18 physic al therap ist referr al 2023 024 [place] [address] [facility], [address] [facility], [place], [address], 03/15/2024 13:03:18 diabet ic ophtha lmolog y referr al 2023 024 [facility], [address], [place], [address], 12/09/2023 07:45:25 Procedures diagno stic colono scopy (PROC) 2023 024 THOMPSON Rutledge MD, [address] [facility], [address], [place], [address], 02/27/2024 19:18:26 Surgeries None record ed. Imaging CT, urogra m - please call murray camacho to max burgos appt. [address] (Imaging), [address], [place], [address], 04/01/2024 16:34:21 Medication Orders escita lopram [address] [facility] [place] #[id number], [address], [place], [address], 02/27/2024 16:25:09 Lantus Solost ar U-100 Insuli n 100 unit/m L (3 mL) subcut aneous pen [address] [facility] ([place] [place] #[id number], [address], [place], [address], 01/22/2024 10:29:42 buprop ion HCl XL 150 mg 24 hr tablet , extend ed releas e [address] [facility] [place] #[id number], [address], [place], [address], 10/10/2023 12:30:48 simvas tatin 40 mg tablet [address] [facility] [place] #[id number], [address], [place], [address], 02/18/2024 17:53:41 Patient TargetsNo targets recorded. Patient Instructions Encounter Date Encounter Id Patient Instructions Last Modified By Organization Details Last Modified Time 10/10/2023 [id number] A healthy lifestyle: care instructions Not available 10/13/2023 11:19:31 Reason for Referral Diabetic Ophthalmology Refer ral for Uncontrolled type 2 diabetes mellitus Referring Physician: Rona Barron, Internal Medicine, Encounter Date: 10/10/2023 Book Publisher/dietitian Refer ral for Uncontrolled type 2 diabetes mellitus poorly controlled diabetes, on insulin Referring Physician: Rona Barron, Internal Medicine, Encounter Date: 01/22/2024 Physical Therapist Referral for Unsteady when walking Referring Physician: Rona Barron, Internal Medicine, Encounter Date: 01/22/2024 Results Created Date Observation Date Name Description Value Unit Range Abnormal Flag Note LastModifiedBy Organization Detail LastModifiedTime 10/28/19 24 10/29/2023 TSH+F REE T4 TSH 3.550 uIU/m L 0.450- 4.500 Not Available [facility] ([facility]) [address] [place], [address], 10/29/2023 10:14:44 10/28/19 24 10/29/2023 TSH+F REE T4 T4,free(dire ct) 0.89 NG/dL 0.82-1 .77 Not Available [facility] ([facility]) [address] [place], [address], 10/29/2023 10:14:44 10/28/19 24 10/29/2023 LIPID PANEL cholesterol, total 243 mg/dL 100-19 9 above high normal Not Available [facility] ([facility]) [address] [place], [address], 10/29/2023 10:14:44 10/28/19 24 10/29/2023 LIPID PANEL triglyceride s 586 mg/dL 0-149 alert high Not Available [facility] ([facility]) [address] [place], [address], 10/29/2023 10:14:44 10/28/19 24 10/29/2023 LIPID PANEL HDL cholesterol 44 mg/dL >39 Not Available [facility] ([facility]) [address] [place], [address], 10/29/2023 10:14:44 10/28/19 24 10/29/2023 LIPID PANEL VLDL cholesterol milly 99 mg/dL 5-40 above high normal Not Available [facility] ([facility]) [address] [place], [address], 10/29/2023 10:14:44 10/28/19 24 10/29/2023 LIPID PANEL LDL chol calc ([facility]) 100 mg/dL 0-99 above high normal Not Available [facility] ([facility]) [address] [facility], [place], [address], 10/29/2023 10:14:44 10/28/19 24 10/29/2023 HEPAT IC FUNCT ION PANEL (7) protein, total 6.7 g/dL 6.0-8. 5 Not Available [facility] ([facility]) [address] [facility], [place], [address], 10/29/2023 10:14:45 10/28/19 24 10/29/2023 HEPAT IC FUNCT ION PANEL (7) albumin 3.9 g/dL 3.8-4. 8 Not Available [facility] ([facility]) [address] [facility], [place], [address], 10/29/2023 10:14:45 10/28/19 24 10/29/2023 HEPAT IC FUNCT ION PANEL (7) bilirubin, total 0.4 mg/dL 0.0-1. 2 Not Available [facility] ([facility]) [address] [facility] [place], [address], 10/29/2023 10:14:45 10/28/19 24 10/29/2023 HEPAT IC FUNCT ION PANEL (7) bilirubin, direct 0.13 mg/dL 0.00-0 .40 Not Available [facility] ([facility]) [address] [facility] [place], [address], 10/29/2023 10:14:45 10/28/19 24 10/29/2023 HEPAT IC FUNCT ION PANEL (7) alkaline phosphatase 95 IU/L 44-121 Not Available [facility] ([facility]) [address] [facility], [place], [address], 10/29/2023 10:14:45 10/28/19 24 10/29/2023 HEPAT IC FUNCT ION PANEL (7) AST (SGOT) 35 IU/L 0-40 Not Available [facility] ([facility]) [address] [facility], [place], [address], 10/29/2023 10:14:45 10/28/19 24 10/29/2023 HEPAT IC FUNCT ION PANEL (7) ALT (SGPT) 35 IU/L 0-32 above high normal Not Available [facility] ([facility]) [address] [facility], [place], [address], 10/29/2023 10:14:45 10/28/19 24 10/29/2023 MICRO SCOPI C EXAMI NATIO N WBC >30 /hpf 0-5 abnormal Not Available [facility] ([facility]) [address] [facility], [place], [address], 10/29/2023 10:14:46 10/28/19 24 10/29/2023 MICRO SCOPI C EXAMI NATIO N RBC NONE SEEN /hpf 0-2 Not Available [facility] ([facility]) [address] [facility], [place], [address], 10/29/2023 10:14:46 10/28/19 24 10/29/2023 MICRO SCOPI C EXAMI NATIO N epithelial cells (non renal) 0-10 /hpf 0-10 Not Available [facility] ([facility]) [address] [facility], [place], [address], 10/29/2023 10:14:46 10/28/19 24 10/29/2023 MICRO SCOPI C EXAMI NATIO N casts NONE SEEN /lpf nonese en Not Available [facility] ([facility]) [address] [facility], [place], [address], 10/29/2023 10:14:46 10/28/19 24 10/29/2023 MICRO SCOPI C EXAMI NATIO N bacteria MANY nonese en/few abnormal Not Available [facility] ([facility]) [address] [facility], [place], [address], 10/29/2023 10:14:46 10/28/19 24 10/29/2023 BMP7+ EGFR glucose 241 mg/dL 70-99 above high normal Not Available [facility] ([facility]) [address] [place], [address], 10/29/2023 10:14:46 10/28/19 24 10/29/2023 BMP7+ EGFR BUN 27 mg/dL 8-27 Not Available [facility] ([facility]) [address] [place], [address], 10/29/2023 10:14:46 10/28/19 24 10/29/2023 BMP7+ EGFR creatinine 1.01 mg/dL 0.57-1 .00 above high normal Not Available [facility] ([facility]) [address] [place], [address], 10/29/2023 10:14:46 10/28/19 24 10/29/2023 BMP7+ EGFR eGFR 57 mL/mi n/1.7 3 >59 below low normal Not Available [facility] ([facility]) [address] [place], [address], 10/29/2023 10:14:46 10/28/19 24 10/29/2023 BMP7+ EGFR sodium 138 mmol/ L 134-14 4 Not Available [facility] ([facility]) [address] [place], [address], 10/29/2023 10:14:46 10/28/19 24 10/29/2023 BMP7+ EGFR potassium 3.7 mmol/ L 3.5-5. 2 Not Available [facility] ([facility]) [address] [place], [address], 10/29/2023 10:14:46 10/28/19 24 10/29/2023 BMP7+ EGFR chloride 101 mmol/ L 96-106 Not Available [facility] ([facility]) [address] [place], [address], 10/29/2023 10:14:46 10/28/19 24 10/29/2023 BMP7+ EGFR carbon dioxide, total 20 mmol/ L 20-29 Not Available [facility] ([facility]) [address] [facility], [place], [address], 10/29/2023 10:14:46 10/28/19 24 10/29/2023 VITAM IN B12 AND FOLAT E vitamin B12 1247 pg/mL 232-12 45 above high normal Not Available [facility] ([facility]) [address] [facility], [place], [address], 10/29/2023 10:14:47 10/28/19 24 10/29/2023 VITAM IN B12 AND FOLAT E folate (folic acid), serum 7.8 NG/mL >3.0 A serum folat e madhavi ntrat ion of less than 3.1 ng/mL is consi dered to repre sent clini milly defic iency . Not Available [facility] ([facility]) [address] [facility], [place], [address], 10/29/2023 10:14:47 10/28/19 24 10/29/2023 HEMOG LOBIN A1C hemoglobin A1C 10.4 % 4.8-5. 6 above high normal Predi abete s: 5.7 - 6.4 Diabe radha: >6.4 Glyce jose contr ol for adult s with diabe radha: <7.0 Not Available [facility] ([facility]) [address] [facility], [place], [address], 10/29/2023 10:14:48 10/28/19 24 10/29/2023 URINA LYSIS , COMPL ETE specific gravity 1.025 1.005- 1.030 Not Available [facility] ([facility]) [address] [facility], [place], [address], 10/29/2023 10:14:48 10/28/19 24 10/29/2023 URINA LYSIS , COMPL ETE pH 5.5 5.0-7. 5 Not Available [facility] ([facility]) [address] [facility], [place], [address], 10/29/2023 10:14:48 10/28/19 24 10/29/2023 URINA LYSIS , COMPL ETE urine-color YELLOW yellow Not Available [facility] ([facility]) [address] [facility], [place], [address], 10/29/2023 10:14:48 10/28/19 24 10/29/2023 URINA LYSIS , COMPL ETE appearance CLOUDY clear abnormal Not Available [facility] ([facility]) [address] [facility], [place], [address], 10/29/2023 10:14:48 10/28/19 24 10/29/2023 URINA LYSIS , COMPL ETE WBC esterase 1+ negati ve abnormal Not Available [facility] ([facility]) [address] [facility], [place], [address], 10/29/2023 10:14:48 10/28/19 24 10/29/2023 URINA LYSIS , COMPL ETE protein 1+ negati ve/tra ce abnormal Not Available [facility] ([facility]) [address] [facility], [place], [address], 10/29/2023 10:14:48 10/28/19 24 10/29/2023 URINA LYSIS , COMPL ETE glucose 3+ negati ve abnormal Not Available [facility] ([facility]) [address] [facility], [place], [address], 10/29/2023 10:14:48 10/28/19 24 10/29/2023 URINA LYSIS , COMPL ETE ketones TRACE negati ve abnormal Not Available [facility] ([facility]) [address] [facility], [place], [address], 10/29/2023 10:14:48 10/28/19 24 10/29/2023 URINA LYSIS , COMPL ETE occult blood NEGATI VE negati ve Not Available [facility] ([facility]) [address] [facility], [place], [address], 10/29/2023 10:14:48 10/28/19 24 10/29/2023 URINA LYSIS , COMPL ETE bilirubin NEGATI VE negati ve Not Available [facility] ([facility]) [address] [facility], [place], [address], 10/29/2023 10:14:48 10/28/19 24 10/29/2023 URINA LYSIS , COMPL ETE urobilinogen ,semi-qn 0.2 mg/dL 0.2-1. 0 Not Available [facility] ([facility]) [address] [facility], [place], [address], 10/29/2023 10:14:48 10/28/19 24 10/29/2023 URINA LYSIS , COMPL ETE nitrite, urine POSITI VE negati ve abnormal Not Available [facility] ([facility]) [address] [place], [address], 10/29/2023 10:14:48 10/28/19 24 10/29/2023 URINA LYSIS , COMPL ETE microscopic examination SEE BELOW: Micro scopi c was indic ated and was perfo rmed. Not Available [facility] ([facility]) [address] [place], [address], 10/29/2023 10:14:48 10/28/19 24 10/29/2023 CBC WITH DIFFE RENTI AL/PL ATELE T WBC 6.7 x10e3 /uL 3.4-10 .8 Not Available [facility] ([facility]) [address] [place], [address], 10/29/2023 10:14:49 10/28/19 24 10/29/2023 CBC WITH DIFFE RENTI AL/PL ATELE T RBC 4.20 x10e6 /uL 3.77-5 .28 Not Available [facility] ([facility]) [address] [place], [address], 10/29/2023 10:14:49 10/28/19 24 10/29/2023 CBC WITH DIFFE RENTI AL/PL ATELE T hemoglobin 13.5 g/dL 11.1-1 5.9 Not Available [facility] ([facility]) [address] [place], [address], 10/29/2023 10:14:49 10/28/19 24 10/29/2023 CBC WITH DIFFE RENTI AL/PL ATELE T hematocrit 42.4 % 34.0-4 6.6 Not Available [facility] ([facility]) [address] [place], [address], 10/29/2023 10:14:49 10/28/19 24 10/29/2023 CBC WITH DIFFE RENTI AL/PL ATELE T MCV 101 fL 79-97 above high normal Not Available [facility] ([facility]) [address] [place], [address], 10/29/2023 10:14:49 10/28/19 24 10/29/2023 CBC WITH DIFFE RENTI AL/PL ATELE T MCH 32.1 pg 26.6-3 3.0 Not Available [facility] ([facility]) [address] [place], [address], 10/29/2023 10:14:49 10/28/19 24 10/29/2023 CBC WITH DIFFE RENTI AL/PL ATELE T MCHC 31.8 g/dL 31.5-3 5.7 Not Available [facility] ([facility]) [address] [place], [address], 10/29/2023 10:14:49 10/28/19 24 10/29/2023 CBC WITH DIFFE RENTI AL/PL ATELE T RDW 12.6 % 11.7-1 5.4 Not Available [facility] ([facility]) [address] [facility], [place], [address], 10/29/2023 10:14:49 10/28/19 24 10/29/2023 CBC WITH DIFFE RENTI AL/PL ATELE T platelets 208 x10e3 /uL 150-45 0 Not Available [facility] ([facility]) [address] [facility], [place], [address], 10/29/2023 10:14:49 10/28/19 24 10/29/2023 CBC WITH DIFFE RENTI AL/PL ATELE T neutrophils 68 % notest ab. Not Available [facility] ([facility]) [address] [facility], [place], [address], 10/29/2023 10:14:49 10/28/19 24 10/29/2023 CBC WITH DIFFE RENTI AL/PL ATELE T lymphs 22 % notest ab. Not Available [facility] ([facility]) [address] [facility], [place], [address], 10/29/2023 10:14:49 10/28/19 24 10/29/2023 CBC WITH DIFFE RENTI AL/PL ATELE T monocytes 6 % notest ab. Not Available [facility] ([facility]) [address] [facility], [place], [address], 10/29/2023 10:14:49 10/28/19 24 10/29/2023 CBC WITH DIFFE RENTI AL/PL ATELE T eos 2 % notest ab. Not Available [facility] ([facility]) [address] [facility], [place], [address], 10/29/2023 10:14:49 10/28/19 24 10/29/2023 CBC WITH DIFFE RENTI AL/PL ATELE T basos 1 % notest ab. Not Available [facility] ([facility]) [address] [facility], [place], [address], 10/29/2023 10:14:49 10/28/19 24 10/29/2023 CBC WITH DIFFE RENTI AL/PL ATELE T neutrophils (absolute) 4.6 x10e3 /uL 1.4-7. 0 Not Available [facility] ([facility]) [address] [facility], [place], [address], 10/29/2023 10:14:49 10/28/19 24 10/29/2023 CBC WITH DIFFE RENTI AL/PL ATELE T lymphs (absolute) 1.5 x10e3 /uL 0.7-3. 1 Not Available [facility] ([facility]) [address] [facility], [place], [address], 10/29/2023 10:14:49 10/28/19 24 10/29/2023 CBC WITH DIFFE RENTI AL/PL ATELE T monocytes(ab solute) 0.4 x10e3 /uL 0.1-0. 9 Not Available [facility] ([facility]) [address] [facility], [place], [address], 10/29/2023 10:14:49 10/28/19 24 10/29/2023 CBC WITH DIFFE RENTI AL/PL ATELE T eos (absolute) 0.1 x10e3 /uL 0.0-0. 4 Not Available [facility] ([facility]) [address] [facility], [place], [address], 10/29/2023 10:14:49 10/28/19 24 10/29/2023 CBC WITH DIFFE RENTI AL/PL ATELE T baso (absolute) 0.0 x10e3 /uL 0.0-0. 2 Not Available [facility] ([facility]) [address] [facility], [place], [address], 10/29/2023 10:14:49 10/28/19 24 10/29/2023 CBC WITH DIFFE RENTI AL/PL ATELE T immature granulocytes 1 % notest ab. Not Available [facility] ([facility]) [address] [facility], [place], [address], 10/29/2023 10:14:49 10/28/19 24 10/29/2023 CBC WITH DIFFE RENTI AL/PL ATELE T immature grans (abs) 0.1 x10e3 /uL 0.0-0. 1 Not Available [facility] ([facility]) [address] [facility], [place], [address], 10/29/2023 10:14:49 10/28/19 24 10/31/2023 URINE CULTU RE, RUSSELL NE urine culture, routine FINAL REPORT abnormal Not Available [facility] ([facility]) [address] [facility], [place], [address], 10/31/2023 15:13:58 10/28/1910/31/2023 URINE CULTU RE, ROUTI NE result 1 ESCHER ICHIA COLI abnormal Great er than 100,0 00 colon y formi ng units per mL Cefaz adri <=4 ug/mL Cefaz adri with an JOSE <=16 predi cts susce ptibi lity to the oral agent s cefac briana, cefdi dayana, cefpo doxim e, cefpr ozil, cefur oxime , cepha lexin , and lorac arbef when used for thera py of uncom plica fidencio urina ry tract infec tions due to E. coli, Klebs iella pneum oniae , and Prote us mirab ilis. Not Available [facility] ([facility]) [address] [facility], [place], [address], 10/31/2023 15:13:58 10/28/1910/31/2023 URINE CULTU RE, ROUTI NE antimicrobia l susceptibili ty COMMEN T S = Susce ptibl e; I = Inter media te; R = Resis tant P = Posit dolores; N = Negat dolores MICS are expre ssed in micro grams per mL Antib iotic RSLT# 1 RSLT# 2 RSLT# 3 RSLT# 4 Amoxi cilli n/Cla vulan ic Acid S Ampic illin S Cefep daren S Ceftr iaxon e S Cefur oxime S Cipro floxa daniel S Ertap enem S Genta micin S Imipe nem S Levof loxac in S Merop enem S Nitro furan toin S Piper acill in/Ta zobac abdi S Tetra cycli ne S Tobra mycin S Trime thopr im/Mcdonough lfa S Not Available [facility] ([facility]) [address] [facility], [place], [address], 10/31/2023 15:13:58 01/16/20 24 01/17/2024 MICRO SCOPI C EXAMI NATIO N WBC None seen /hpf 0-5 Not Available [facility] ([facility]) [address] [place], [address], 01/17/2024 07:16:37 01/16/20 24 01/17/2024 MICRO SCOPI C EXAMI NATIO N RBC None seen /hpf 0-2 Not Available [facility] ([facility]) [address] [place], [address], 01/17/2024 07:16:37 01/16/20 24 01/17/2024 MICRO SCOPI C EXAMI NATIO N epithelial cells (non renal) 0-10 /hpf 0-10 Not Available [facility] ([facility]) [address] [place], [address], 01/17/2024 07:16:37 01/16/20 24 01/17/2024 MICRO SCOPI C EXAMI NATIO N casts None seen /lpf nonese en Not Available [facility] ([facility]) [address] [place], [address], 01/17/2024 07:16:37 01/16/20 24 01/17/2024 MICRO SCOPI C EXAMI NATIO N bacteria None seen nonese en/few Not Available [facility] ([facility]) [address] [facility], [place], [address], 01/17/2024 07:16:37 01/16/20 24 01/17/2024 URINA LYSIS , COMPL ETE specific gravity 1.017 1.005- 1.030 Not Available [facility] ([facility]) [address] [facility], [place], [address], 01/17/2024 07:16:37 01/16/20 24 01/17/2024 URINA LYSIS , COMPL ETE pH 5.5 5.0-7. 5 Not Available [facility] ([facility]) [address] [facility], [place], [address], 01/17/2024 07:16:37 01/16/20 24 01/17/2024 URINA LYSIS , COMPL ETE urine-color YELLOW yellow Not Available [facility] ([facility]) [address] [facility], [place], [address], 01/17/2024 07:16:37 01/16/20 24 01/17/2024 URINA LYSIS , COMPL ETE appearance CLEAR clear Not Available [facility] ([facility]) [address] [facility], [place], [address], 01/17/2024 07:16:37 01/16/20 24 01/17/2024 URINA LYSIS , COMPL ETE WBC esterase NEGATI VE negati ve Not Available [facility] [facility]) [address] [facility], [place], [address], 01/17/2024 07:16:37 01/16/20 24 01/17/2024 URINA LYSIS , COMPL ETE protein NEGATI VE negati ve/tra ce Not Available [facility] ([facility]) [address] [facility], [place], [address], 01/17/2024 07:16:37 01/16/20 24 01/17/2024 URINA LYSIS , COMPL ETE glucose 1+ negati ve abnormal Not Available [facility] ([facility]) [address] [place], [address], 01/17/2024 07:16:37 01/16/20 24 01/17/2024 URINA LYSIS , COMPL ETE ketones NEGATI VE negati ve Not Available [facility] ([facility]) [address] [place], [address], 01/17/2024 07:16:37 01/16/20 24 01/17/2024 URINA LYSIS , COMPL ETE occult blood NEGATI VE negati ve Not Available [facility] ([facility]) [address] [place], [address], 01/17/2024 07:16:37 01/16/20 24 01/17/2024 URINA LYSIS , COMPL ETE bilirubin NEGATI VE negati ve Not Available [facility] ([facility]) [address] [place], [address], 01/17/2024 07:16:37 01/16/20 24 01/17/2024 URINA LYSIS , COMPL ETE urobilinogen ,semi-qn 0.2 mg/dL 0.2-1. 0 Not Available [facility] ([facility]) [address] [place], [address], 01/17/2024 07:16:37 01/16/20 24 01/17/2024 URINA LYSIS , COMPL ETE nitrite, urine NEGATI VE negati ve Not Available [facility] ([facility]) [address] [place], [address], 01/17/2024 07:16:37 01/16/20 24 01/17/2024 URINA LYSIS , COMPL ETE microscopic examination COMMEN T Micro scopi c follo ws if indic ated. Not Available [facility] ([facility]) [address] [place], [address], 01/17/2024 07:16:37 01/16/20 24 01/17/2024 URINA LYSIS , COMPL ETE microscopic examination SEE BELOW: Micro scopi c was indic ated and was perfo rmed. Not Available [facility] ([facility]) [address] [place], [address], 01/17/2024 07:16:37 01/16/20 24 01/18/2024 URINE CULTU RE, ROUTI NE urine culture, routine FINAL REPORT Not Available [facility] ([facility]) [address] [place], [address], 01/18/2024 07:08:36 01/16/20 24 01/18/2024 URINE CULTU RE, ROUTI NE result 1 COMMEN T Mixed uroge nital artemio 25,00 0-50, 000 colon y formi ng units per mL Not Available [facility] ([facility]) [address] [facility], [place], [address], 01/18/2024 07:08:36 01/26/20 24 01/27/2024 ALBUM IN, RANDO M URINE albumin, urine 177.7 ug/mL notest ab. Not Available [facility] ([facility]) [address] [place], [address], 01/27/2024 13:07:30 01/26/20 24 01/27/2024 MICRO SCOPI C EXAMI NATIO N WBC >30 /hpf 0-5 abnormal Not Available [facility] ([facility]) [address] [place], [address], 01/27/2024 13:07:31 01/26/20 24 01/27/2024 MICRO SCOPI C EXAMI NATIO N RBC >30 /hpf 0-2 abnormal Not Available [facility] ([facility]) [address] [place], [address], 01/27/2024 13:07:31 12/16/20 24 01/27/2024 MICRO SCOPI C EXAMI NATIO N epithelial cells (non renal) NONE SEEN /hpf 0-10 Not Available [facility] ([facility]) [address] [facility], [place], [address], 01/27/2024 13:07:31 01/26/20 24 01/27/2024 MICRO SCOPI C EXAMI NATIO N casts NONE SEEN /lpf nonese en Not Available [facility] ([facility]) [address] [facility], [place], [address], 01/27/2024 13:07:31 01/26/20 24 01/27/2024 MICRO SCOPI C EXAMI NATIO N bacteria MANY nonese en/few abnormal Not Available [facility] ([facility]) [address] [facility], [place], [address], 01/27/2024 13:07:31 01/26/20 24 01/27/2024 URINA LYSIS , COMPL ETE specific gravity 1.023 1.005- 1.030 Not Available [facility] ([facility]) [address] [facility], [place], [address], 01/27/2024 13:07:32 01/26/20 24 01/27/2024 URINA LYSIS , COMPL ETE pH 6.0 5.0-7. 5 Not Available [facility] ([facility]) [address] [facility], [place], [address], 01/27/2024 13:07:32 01/26/20 24 01/27/2024 URINA LYSIS , COMPL ETE urine-color YELLOW yellow Not Available [facility] ([facility]) [address] [facility], [place], [address], 01/27/2024 13:07:32 01/26/20 24 01/27/2024 URINA LYSIS , COMPL ETE appearance CLOUDY clear abnormal Not Available [facility] ([facility]) [address] [place], [address], 01/27/2024 13:07:32 01/26/20 24 01/27/2024 URINA LYSIS , COMPL ETE WBC esterase 2+ negati ve abnormal Not Available [facility] ([facility]) [address] [facility], [place], [address], 01/27/2024 13:07:32 01/26/20 24 01/27/2024 URINA LYSIS , COMPL ETE protein 2+ negati ve/tra ce abnormal Not Available [facility] ([facility]) [address] [facility], [place], [address], 01/27/2024 13:07:32 01/26/20 24 01/27/2024 URINA LYSIS , COMPL ETE glucose 3+ negati ve abnormal Not Available [facility] ([facility]) [address] [place], [address], 01/27/2024 13:07:32 01/26/20 24 01/27/2024 URINA LYSIS , COMPL ETE ketones TRACE negati ve abnormal Not Available [facility] ([facility]) [address] [facility], [place], [address], 01/27/2024 13:07:32 01/26/20 24 01/27/2024 URINA LYSIS , COMPL ETE occult blood 3+ negati ve abnormal Not Available [facility] ([facility]) [address] [place], [address], 01/27/2024 13:07:32 01/26/20 24 01/27/2024 URINA LYSIS , COMPL ETE bilirubin NEGATI VE negati ve Not Available [facility] ([facility]) [address] [place], [address], 01/27/2024 13:07:32 01/26/20 24 01/27/2024 URINA LYSIS , COMPL ETE urobilinogen ,semi-qn 0.2 mg/dL 0.2-1. 0 Not Available [facility] ([facility]) [address] [facility], [place], [address], 01/27/2024 13:07:32 01/26/20 24 01/27/2024 URINA LYSIS , COMPL ETE nitrite, urine NEGATI VE negati ve Not Available [facility] ([facility]) [address] [facility], [place], [address], 01/27/2024 13:07:32 01/26/20 24 01/27/2024 URINA LYSIS , COMPL ETE microscopic examination SEE BELOW: Micro scopi c was indic ated and was perfo rmed. Not Available [facility] ([facility]) [address] [facility], [place], [address], 01/27/2024 13:07:32 01/26/20 24 01/28/2024 URINE CULTU RE,CO MPREH ENSIV E urine culture,comp rehensive FINAL REPORT Not Available [facility] ([facility]) [address] [facility], [place], [address], 01/28/2024 07:08:56 01/26/2001/28/2024 URINE CULTU RE,CO MPREH ENSIV E result 1 COMMEN T Mixed uroge nital artemio 25,00 0-50, 000 colon y formi ng units per mL Not Available [facility] ([facility]) [address] [place], [address], 01/28/2024 07:08:56 Result Notes None recorded. Problems Name Problem SNOMED Code Status Onset Date Resolution Date Notes Provider Name and Address Organization Details Recorded Time Body mass index 30+ - obesity 558517772 Active 2023 Lizbeth Cobos MA [facility], [place] - [facility] 11:55:31 Long-term drug therapy Active 2023 NICA Escoto Attn: Jana g,[address] [facility], [place], [address], [place] - [facility] 4 12:12:42 Hyperlipide avni 36377890 Active 2023 NICA Escoto Attn: Accountin g,[address] [facility], [place], [address], [place] [facility] 4 12:12:44 Gastroesoph ageal reflux disease without esophagitis 364794619 Active 2023 NICA Escoto Attn: Accountin g,[address] [facility], [place], [address], [place] [facility] 4 12:12:45 Uncontrolle d type 2 diabetes mellitus 781647277 Active 2023 NICA Escoto Attn: Accountin g,[address] [place], [address], [place] [facility] 4 12:12:46 History of malignant neoplasm of breast 793190813 Active 2023 NICA Escoto Attn: Accountin g,[address] [facility], [place], [address], [place] [facility] 4 12:20:27 History of bilateral mastectomy 791660831 Active 2023 NICA Escoto Attn: Accountin g,[address] [facility], [place], [address], [place] [facility] 4 12:20:28 Vitamin D deficiency 01223388 Active 2023 NICA Escoto Attn: Accountin g,[address] [place], [address], [place] [facility] 4 12:20:31 Recurrent urinary tract infection 722082573 Active 2023 NICA Escoto Attn: Accountin g,[address] [place], [address], [place] [facility] 4 12:20:33 Chronic diarrhea 256869544 Active 2023 NICA Escoto Attn: Accountin g,[address], [place], [address], [place] [facility] 4 12:20:34 Major depressive disorder 042591714 Active 2023 INCA Escoto Attn: Accountin g,[address] [facility] [facility], [place], [address], [place] [facility] 4 12:20:35 Osteoporosi s 73098331 Active 2023 NICA Escoto Attn: Accountin g,[address] [facility], [place], [address], [place] [facility] 4 12:31:28 Fatigue 40421978 Active 2023 NICA Escoto Attn: Accountin g,[address] [facility], [place], [address], [place] [facility] 4 12:31:29 Obesity 552868237 Active 2023 NICA Escoto Attn: Accountin g,[address] [facility], [place], [address], [place] [facility] 4 11:19:33 Positive screening for depression on PHQ-9 (Patient Health Questionnai re 9) 9363676482702 00 Active 2023 NICA Escoto Attn: Accountin g,[address] [facility], [place], [address], [place] [facility] 4 11:20:21 Unsteady when walking 17404742 Active 2023 NICA Escoto Attn: Accountin g,[address] [facility], [place], [address], [place] [facility] 4 21:16:39 Increased frequency of urination 358320267 Active 2023 NICA Escoto Attn: Accountin g,[address] [facility], [place], [address], [place] [facility] 4 21:16:40 Urgent desire to urinate 15094839 Active 2023 NICA Escoto Attn: Jana moore,[address] [facility], [place], [address], [place] - [facility] 21:16:41 Depressive disorder 09437847 Active 2024 NICA Escoto Attn: Jana moore,[address] [facility], [place], [address], [place] [facility] 5 16:04:21 Microscopic hematuria 822320481 Active 2024 NICA Escoto Attn: Jana moore,[address] [facility], [place], [address], [place] - [facility] 5 16:04:23 Problem Notes None recorded. Procedures Surgical History Date Name Laterality Status Provider Name and Address Organization Details Recorded Time 11/28/19 Diabetic Foot Exam completed Lizbeth Cobos [place] - [facility] 11/28/2023 12:21:45 Breast Surgery completed Lizbeth Cobos [place] [facility] 10/10/2023 12:02:24 cholecystectomy completed Lizbeth Cobos [place] - [facility] 10/10/2023 12:02:29 Imaging Results None recorded. Procedure Notes None recorded. Medical Equipment None Reported. Allergies Allergen ID Allergen Name Allergen Category Reaction Reaction Severity Criticality Documentation Date Start Date Code Code System Note Provider Name and Address Organization Details Recorded Time 507445 fish derived food,medi cation Not available Not available Not available 10/10/2023 40589 UNK Not Available Not Available Not Available 831841 Substance with sulfonami de structure and antibacte rial mechanism of action (substanc e) medicatio n Not available Not available Not available 10/10/2023 28502 8003 SNOMED Not Available Not Available Not Available Medications Name Sig Start Date Stop Date Status Note LastModified by Organization Details LastModified Time celecoxib 200 mg capsule 2024 active Not Available Not Available Not Avai lable anastrozole 1 mg tablet TAKE 1 TABLET BY MOUTH EVERY DAY active Not Available Not Available No t Available doxycycline hyclate 100 mg capsule TAKE 1 CAPSULE BY MOUTH TWICE A DAY FOR 10 DAYS 10/09 completed Not Available Not Available Not Available glipizide 10 mg tablet TAKE 2 TABLETS BY MOUTH TWICE A DAY FOR 90 DAYS active Not Available Not Available No t Available cyanocobala min (vit B-12) 1,000 mcg tablet TAKE 2 TABLETS BY MOUTH DAILY active Not Available Not Available No t Available diphenoxyla te-atropine 2.5 mg-0.025 mg tablet TAKE 1-2 TABLETS BY MOUTH EVERY 4 HOURS NEEDED FOR DIARRHEA active Not Available Not Available No t Available ciprofloxac in 500 mg tablet TAKE 1 TABLET BY MOUTH EVERY 12 HOURS FOR 7 DAYS active Not Available Not Available No t Available omeprazole 40 mg capsule,del ayed release Take 1 capsule every day by oral route. active Not Available Not Available No t Available simvastatin 40 mg tablet TAKE 1 TABLET BY MOUTH EVERY DAY 02/17 completed Not Available Not Available Not Available cephalexin 500 mg capsule TAKE 1 CAPSULE BY MOUTH 4 TIMES A DAY UNTIL GONE 10/09 completed Not Available Not Available Not Available ergocalcife rol (vitamin D2) 1,250 mcg (50,000 unit) capsule TAKE 1 CAPSULE BY MOUTH WEEKLY ON SAME DAY EACH WEEK active Not Available Not Available No t Available colestipol 1 gram tablet TAKE 2 TABLETS BY MOUTH EVERY MORNING active Not Available Not Available No t Available atenolol 50 mg tablet TAKE 1/2 TABLET BY MOUTH ONCE DAILY active Not Available Not Available No t Available escitalopra m 10 mg tablet TAKE 1 TABLET BY MOUTH EVERY DAY active Not Available Not Available No t Available escitalopra m 20 mg tablet TAKE 1 TABLET BY MOUTH EVERY DAY 02/26 completed Not Available Not Available Not Available rosuvastati n 40 mg tablet Take 1 tablet every day by oral route in the evening. active Not Available Not Available No t Available bupropion HCl XL 150 mg 24 hr tablet, extended release TAKE 1 TABLET BY MOUTH EVERY DAY active Not Available Not Available No t Available nitrofurant oin monohydrate /macrocryst als 100 mg capsule TAKE 1 CAPSULE BY MOUTH EVERY 12 HOURS FOR 5 DAYS 10/09 completed Not Available Not Available Not Available BD Ultra-Fine Short Pen Needle 31 gauge x 5/16 USE TO INJECT ONCE DAILY active Not Available Not Available No t Available aripiprazol e 2 mg tablet TAKE 1 TABLET BY MOUTH EVERY DAY 10/09 completed Not Available Not Available Not Available Lantus Solostar U-100 Insulin 100 unit/mL (3 mL) subcutaneou s pen Inject 20 units every day by subcutane ous route as directed. active Not Available Not Available No t Available GaviLyte-G 236 gram-22.74 gram-6.74 gram-5.86 gram oral solution TAKE DIRECTED active Not Available Not Available No t Available Prolia 60 mg/mL subcutaneou s syringe active Not Available Not Available No t Available Janumet XR 100 mg-1,000 mg tablet,exte nded release Take 1 tablet every day by oral route. active Not Available Not Available No t Available Rybelsus 7 mg tablet TAKE 1 TABLET BY MOUTH EVERY DAY active Not Available Not Available No t Available Rybelsus 3 mg tablet TAKE 1 TABLET BY MOUTH EVERY DAY 10/09 completed Not Available Not Available Not Available Vitals Date Recorded Body weight Respiratory rate Body mass index (BMI) Body height Oxygen saturation Oxygen saturation in Arterial blood by Pulse oximetry Heart rate Systolic blood pressure Diastolic blood pressure Provider Name and Address Organization Details Last Updated DateTime 4 71062.6 g 20 /min 36.1 kg/m2 149.86 cm 96 % 96 % 68 /min 122 mm[Hg] 80 mm[Hg] Lizbeth Cobos MA [facility] 12:06:25 Date Recorded Systolic blood pressure Diastolic blood pressure Provider Name and Address Organization Details Last Updated DateTime 10/10/2023 118 mm[Hg] 70 mm[Hg] NICA Escoto Attn: Accounting,[address] [place], [address], [facility] 10/10/2023 12:26:56 Date Recorded Body height Body mass index (BMI) Body weight Respiratory rate Oxygen saturation Oxygen saturation in Arterial blood by Pulse oximetry Heart rate Systolic blood pressure Diastolic blood pressure Provider Name and Address Organization Details Last Updated DateTime 4 149.86 cm 36.8 kg/m2 99616.8 1 g 20 /min 97 % 97 % 77 /min 128 mm[Hg] 82 mm[Hg] Lizbeth Cobos MA [facility] 4 12:19:20 Date Recorded Body height Respiratory rate Oxygen saturation Oxygen saturation in Arterial blood by Pulse oximetry Heart rate Body mass index (BMI) Body weight Systolic blood pressure Diastolic blood pressure Provider Name and Address Organization Details Last Updated DateTime 4 149.86 cm 20 /min 96 % 96 % 90 /min 37 kg/m2 33576.4 g 142 mm[Hg] 82 mm[Hg] Lizbeth Cobos MA [facility] 4 10:13:49 Date Recorded Systolic blood pressure Diastolic blood pressure Provider Name and Address Organization Details Last Updated DateTime 01/22/2024 140 mm[Hg] 80 mm[Hg] NICA Escoto Attn: Accounting,[address] [place], [address], [facility] 01/22/2024 10:30:03 Date Recorded Body height Body mass index (BMI) Body weight Oxygen saturation Oxygen saturation in Arterial blood by Pulse oximetry Heart rate Systolic blood pressure Diastolic blood pressure Provider Name and Address Organization Details Last Updated DateTime 5 149.86 cm 36.2 kg/m2 88705.0 3 g 98 % 98 % 90 /min 142 mm[Hg] 88 mm[Hg] Lizbeth Cobos MA [facility] 5 16:05:07 Date Recorded Respiratory rate Systolic blood pressure Diastolic blood pressure Provider Name and Address Organization Details Last Updated DateTime 02/27/2024 16 /min 138 mm[Hg] 84 mm[Hg] NICA Escoto Attn: Accounting, [address] [place], [address], [facility] 02/27/2024 16:20:38 Social History Question Answer Notes LastModified by Organizat ion Details LastModified Time Tobacco Smoking Status Former Smoker quit years 40 years ago Lizbeth Cobos MA [facility], [facility] 10/10/2023 12:01:28 Do You Have An Advance Directive? Yes Information not available 10/10/2023 What Is Your Level Of Alcohol Consumption? None Information not available 10/10/2023 Are You Blind Or Do You Have Difficulty Seeing? Yes Information not available 10/10/2023 What Is Your Level Of Caffeine Consumption? Moderate Coffee Information not available 10/10/2023 In The 14 Days Before Symptom Onset, Have You Had Close Contact With A Laboratory-confir med COVID-19 While That Case Was Ill? No Information not available 10/10/2023 In The 14 Days Before Symptom Onset, Have You Had Close Contact With A Person Who Is Under Investigation For COVID-19 While That Person Was Ill? No Information not available 10/10/2023 Have You Been To An Area Known To Be High Risk For COVID-19? No Information not available 10/10/2023 Are You Currently Employed? Yes Information not available 10/10/2023 Are You Deaf Or Do You Have Serious Difficulty Hearing? Yes Hearing Aids Information not available 10/10/2023 What Type Of Diet Are You Following? 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 No Information not available 10/10/2023 What Was The Date Of Your Most Recent Tobacco Screening? 02/27/2024 Information not available 02/27/2024 What Is Your Current Pack Years? 30ormorepack years Information not available 10/10/2023 Do You Use Your Seat Belt Or Car Seat Routinely? Yes Information not available 10/10/2023 Do You Have Smoke And Carbon Monoxide Detectors In Your Home? Yes Information not available 10/10/2023 How Much Tobacco Do You Smoke? No Information not available 10/10/2023 Do You Use Any Illicit Or Recreational Drugs? No Information not available 10/10/2023 Do You Use Sunscreen Routinely? No Information not available 10/10/2023 Has Tobacco Cessation Counseling Been Provided? No Information not available 10/10/2023 Do You Or Have You Ever Used Any Other Forms Of Tobacco Or Nicotine? No Information not available 10/10/2023 Sex: Female Functional Status Question Answer Note LastModified by Organization D etails LastModified Time Are you able to care for yourself? Yes Information n ot available 10/10/2023 What is your exercise level? None Information not available 10/10/2023 Mental Status None recorded. Family History Relationship Description Onset Age of this Age Resolved Age Notes LastModified by Organization Details LastModified Time Mother Dementia [email or web address] Not availabl e 10/10/2023 13:17:37 Father Diabetes mellitus [email or web address] Not available 2023 13:17:42 Medical History Condition Response Diabetes Y Anxiety Disorder Y High Blood Pressure Y Acid Reflux (GERD) Y Cancer Y Thyroid Problems Y Depression Y Asthma Y Allergies Y High Cholesterol Y Headaches Y Osteoporosis Y Gynecological History Statement/Question Response Menses Monthly N Current Control Method Other Obstetrics History GPAL:G 2 P 2 0 0 2 Type Value Full Term 2 Induced 0 Spontaneous 0 Premature 0 Living 2 Total 2 Immunizations Vaccine Type Date Status Note Provider Nam e and Address Organization Details Recorded Time zoster recombinant 05/27/2023 completed Lizbeth Cobos [place], [place] [facility] 11/21/2023 16:50:32 zoster recombinant 07/23/2022 completed Lizbeth Cob[place] [facility] 11/21/2023 16:50:32 Influenza, high-dose, quadrivalent, PF 11/15/2021 completed Lizbeth Cob[place] [facility] 11/21/2023 16:50:32 Influenza, high-dose, quadrivalent, PF 01/17/2021 completed Lizbeth Cob[place] [facility] 11/21/2023 16:50:32 COVID-19, mRNA, LNP-S, PF, 100 mcg/0.5mL dose or 50 mcg/0.25mL dose 03/13/2020 completed Lizbeth Cob[place] [facility] 11/21/2023 16:50:32 COVID-19, mRNA, LNP-S, PF, 100 mcg/0.5mL dose or 50 mcg/0.25mL dose 04/10/2020 completed Lizbeth Cob[place] [facility] 11/21/2023 16:50:33 COVID-19, mRNA, LNP-S, PF, 100 mcg/0.5mL dose or 50 mcg/0.25mL dose 05/15/2021 completed Lizbeth [place] [facility] 11/21/2023 16:50:33 COVID-19, mRNA, LNP-S, PF, 100 mcg/0.5mL dose or 50 mcg/0.25mL dose 01/02/2021 completed Lizbeth Cob[place] [facility] 11/21/2023 16:50:33 COVID-19, mRNA, LNP-S, PF, kendall-sucrose, 30 mcg/0.3 mL 06/11/2023 completed Lizbeth Cob[place] [facility] 11/21/2023 16:50:33 Influenza, high-dose, trivalent, PF 11/28/2023 completed NICA Escoto Attn: Accounting,[address] [place], [address], [place] [facility] 12/14/2023 17:20:25 Past Encounters Encounter ID Performer Location Encounter Start Date Encounter Closed Date Diagnosis/Indication Diagnosis SNOMED-CT Code Diagnosis ICD10 Code Diagnosis Note [id number] NICA Escoto [facility] [place] [address] [place] [address] 10/10/2023 11:09:36 10/10/2023 12:33:50 Body mass index 30+ - obesity 519747343 Z68.36 BMI is 36.1 Uncontroll ed type 2 diabetes mellitus 911653839 E11.65 11% in May. 250-276 range. Patient is due for updated A1c and also referral for diabetic eye exam. For now she will increase to reveal cysts 7 mg daily and continue Janumet XR 100/1000 mg daily and glipizide 20 mg twice daily. We will await new A1c results. Gastroesop hageal reflux disease without esophagitis 656621284 K21.9 Continue omeprazole 40 mg daily for acid reflux management Hyperlipidemia 23759824 E78.5 Refill given on simvastati n 40 mg daily that is needed and she is also due for fasting lipid panel Long-term drug therapy 484168847 Z79.899 All routine labs including CBC, BMP, liver function and thyroid are due Major depr essive disorder 040285704 F32.9 Start Wellbutrin XL 150 mg p.o. daily and follow-up in 4-6 weeks. Juan camacho has been made Recurrent urinary tract infection 833838237 N39.0 Check urine with culture for recurrent UTI History of malignant neoplasm of breast 568265544 Z85.3 2019 bilateral mastectomi es. Patient is on anastrozol e 1 mg daily and is coming up on her 5 years. She should discuss discontinu ation of this with her oncologist . Vitamin D deficiency 347 86209 E55.9 on supplement . Chronic diarrhea 5276054 09 K52.9 years of diarrhea. has not been evaluated to date. We will refer for diagnostic colonoscop y for the patient to have thorough evaluation into what may or may not be causing her chronic diarrhea History of bilateral mastectomy 291886510 Z90.13 History reviewed Fatigue [id number] R53.83 Screening vitamin B12 and folic acid ordered Osteoporosis [id number] M8 1.0 Patient reports a history of osteoporos is with DEXA scan up-to-date . She is taking vitamin-D high-dose for supplement . We will await medical records transfer to see when she is due for DEXA again. Obesity 763052469 E66.8 discussed healthy diet, exercise, controllin g carbohydra radha and added sugars in the diet Positive s creening for depression on PHQ-9 (Patient Health Questionnaire 9) [id number] 09934 Z13.31 Patient scored a 23 on screening today. Bupropion therapy has been added for major depressive disorder as stated above. Follow-up juan camacho has been scheduled [id number] NICA Escoto [facility] [place] [address] [place] [address] 11/28/2023 11:57:01 11/28/2023 13:00:07 Chronic diarrhea [id number] K52.9 years of diarrhea. has not been evaluated to date. We will refer for diagnostic colonoscop y for the patient to have thorough evaluation into what may or may not be causing her chronic diarrhea. They have not called her so we will give the patient the phone number to call GI for colonoscop y screening Uncontroll ed type 2 diabetes mellitus [id number] E11.65 11% in June. . A1c completed in October was 10.4% she is currently on Rybelsus 7 mg daily and Janumet XR 100/1000 mg daily and glipizide 20 mg twice daily. Insulin was sent out after these labs but she has not started it yet. We reviewed how to use that today so she will begin Lantus Solostar 10 units daily. We will repeat labs in January and then see her thereafter Gastroesop hageal reflux disease without esophagitis [id number] K21.9 Continue omeprazole 40 mg daily for acid reflux management Hyperlipidemia 16579533 E78.5 Continue simvastati n 40 mg daily that is needed and she is also due for fasting lipid panel in January Major depr essive disorder [id number] F32.9 Patient's depression has improvemen t on Wellbutrin XL 150 mg p.o. daily. We will continue dosing of Wellbutrin medication as it has been efficaciou s Vitamin D deficiency [id number] 86395 E55.9 on high-dose vitamin-D supplement . Body mass index 30+ - obesity 297464697 Z68.36 BMI is 36.1 Long-term drug therapy 835706056 Z79.899 CBC, BMP and liver function due again in January History of malignant neoplasm of breast 885048869 Z85.3 2019 bilateral mastectomi es. Patient is on anastrozol e 1 mg daily and is coming up on her 5 years. She should discuss discontinu ation of this with her oncologist . History of bilateral mastectomy 007310095 Z90.13 History reviewed Osteoporosis 09848012 M8 1.0 Patient reports a history of osteoporos is with DEXA scan up-to-date . She is taking vitamin-D high-dose for supplement . We will await medical records transfer to see when she is due for DEXA again. Obesity 085991890 E66.9 discussed healthy diet, exercise, controllin g carbohydra radha and added sugars in the diet Recurrent urinary tract infection [id number] N39.0 Each lab we will check urine with culture for recurrent UTI Administra tion of influenza vaccine 52451345 Z23 Flu shot given today [id number] NICA Escoto [facility] [place] [address] [place] [address] 01/22/2024 10:06:15 01/22/2024 11:25:59 Urgent desire to urinate 19444601 R39.15 Patient has already an order for urinalysis with culture to see if there is a UTI present she was unable to void at the lab the other day. Empiric antibiotic s were started for her she still needs to complete a urinalysis post treatment Increased frequency of urination 504513085 R35.0 As above Uncontroll ed type 2 diabetes mellitus 846125182 E11.65 Refer to nutrition and dietitian for consult on diabetic diet and guidelines to help patient. Refill Lantus at 20 units daily and we will titrate up as indicated to get fasting sugars below 120 Unsteady when walking 22 531123 R26.89 Refer to physical therapy for gait training and strengthen ing Long-term drug therapy 915563500 Z79.842 [id number] NICA Escoto [facility] [place] [address] [place] [address] 02/27/2024 15:38:32 03/08/2024 15:02:00 Microscopic hematuria [id number] R31.29 Patient is still due for a CT urogram that needs to be evaluated for some microscopi c hematuria that was noted on urinalysis . We need to evaluate for possible kidney stone or any other etiology for the mild red blood cells noted despite negative for UTI. Uncontroll ed type 2 diabetes mellitus [id number] E11.65 Patient is due in March for an updated A1c. We are looking for an improvemen t from the 10.4% on her A1c since she has been routine with her insulin dosing. She also is taking her oral agents and has family and close friend overseeing med scheduling a distributi on. Unsteady when walking 22 547161 R26.89 Patient has been to physical therapy for gait training and strengthen ing and should continue this plan at this time Long-term drug therapy [id number] Z79.899 BMP, liver function and CBC will also be due in March Depressive disorder 2170 0649 F32.A After interview and discussion s today it was determined that the patient has not had a refill of her Lexapro 10 mg daily and perhaps this is why her mood has been leaning more on the depression side. We are refilling her Lexapro 10 mg that was started from her last PCP and has worked well in the past. Health Concerns Section Related Observation LastModified by Organization Detai ls LastModified Time None Recorded Concern Status LastModified by Organization Details LastModified Time None Recorded Advance Directives Directive Y: Payers Encounter Date Sequence Insurance Name Policy Number Policy Kraft Covered Member ID Kraft Member ID Guarantor Name 10/10/2023 1 [employer] (MEDICARE REPLACEMENT/A DVANTAGE - HMO) [id number] Anu Hedrick [id number] [facility] 11/28/2023 1 [employer] (MEDICARE REPLACEMENT/A DVANTAGE - HMO) [id number] Anu Hedrick [id number] [facility] 01/22/2024 1 [employer] (MEDICARE REPLACEMENT/A DVANTAGE - HMO) [id number] L Anu Hedrick [id number] [facility] 02/27/2024 1 [facility] (MEDICARE REPLACEMENT/A DVANTAGE - HMO) [id number] Anu Hedrick [id number] Anu Hedrick Notes Date Note Type Note Provider Name and Address Organization Details Recorded Time 10/10/2023 text/html [facility], NEW PT , FORMER Dennis, PT, Pt. states that her A1C was at about an 11 % as well as her blood sugar being elevated would like to discuss medication,also pt. has been having trouble with memory loss and remembrance as well as Reoccuring Uti states that this has been going on for a couple of years now and they occur very frequently as well as diarrheapossible referral to PT, pt. would like to discuss depression states that she has had a lot of things happen within the last 4 years.needs meds refilled, needs refill of simvastatinPatient has underlying history of hyperlipidemia on medication statin therapy.Patient has a history of gastroesophageal reflux and is on medication for treatment.Patient reports that she has been having chronic diarrhea for several years and she would like to discuss that today.Patient has a history of recurrent urinary tract infections that she reports to provider.Patient has a history of malignant neoplasm of the breast with bilateral mastectomies.Patient struggles with chronic fatiguePatient has osteoporosis history NICA Esocto Attn: Accounting,[address] [facility], [place], [address], [place] [facility] 10/13/2023 11:22:03 11/28/2023 text/html Last HPI: pt. st ates that her A1C was at about an 11 % as well as her blood sugar being elevated would like to discuss medication,Patient's depression is seeming a little bit better this visitPatient has underlying history of hyperlipidemia on medication statin therapy.Patient has a history of gastroesophageal reflux and is on medication for treatment.Patient reports that she has been having chronic diarrhea for several years and she would like to discuss that today.Patient has a history of recurrent urinary tract infections that she reports to provider.Patient has a history of malignant neoplasm of the breast with bilateral mastectomies.Patient struggles with chronic fatiguePatient has osteoporosis history NICA Escoto Attn: Accounting, [address] [facility], [place], [address], [place] [facility] 12/14/2023 17:23:29 01/22/2024 text/html Sept a1c was 10.4%.Patient's depression is doing better.Patient has underlying history of hyperlipidemia on medication statin therapy.Patient has a history of gastroesophageal reflux and is on medication for treatment.Patient reports that she has been having chronic diarrhea for several years and she would like to discuss that today.Patient has a history of recurrent urinary tract infections that she reports to provider.Patient has a history of malignant neoplasm of the breast with bilateral mastectomies.Patient struggles with chronic fatiguePatient has osteoporosis history NICA Escoto Attn: Accounting, [address] [facility], [place], [address], [place] [facility] 02/08/2024 21:19:36 02/27/2024 text/html Sept a1c was 10. 4%. She is finally on injectable insulin therapy and reports that she is taking this every day., Along with her oral agents.Patient's depression is somewhat exacerbated again. After discussion it appears that she has not been on her Lexapro therapy.Patient has underlying history of hyperlipidemia on medication statin therapy.Patient has a history of gastroesophageal reflux and is on medication for treatment.Patient reports that she has been having chronic diarrhea for several years and she would like to discuss that today.Patient has a history of recurrent urinary tract infections that she reports to provider.Patient has a history of malignant neoplasm of the breast with bilateral mastectomies.Patient struggles with chronic fatiguePatient has osteoporosis history NICA Escoto Attn: Accounting,[address] [facility], [place], [address], [place] [facility] 03/14/2024 16:05:07 OBGyn Episode No OBEpisode recorded.
== END 2024-04-05 14:40 | disposition home or self-care (01) ==
PROVIDERS: PCP Physician Assistant; Visit Provider Physician Assistant
DX: K42.9 Umbilical hernia without obstruction or gangrene (principal); R31.29 Other microscopic hematuria
CPT/HCPCS: 74178; Q9967

== ENCOUNTER 2024-05-14 10:30 | Emergency (ER) | payer MEDICARE, SELFPAY ==
--- NOTE | ~2024-05-14 | XR_ITS ---
XR chest 1V portable 05/14/2024 11:24 Indication: Shortness of breath Procedure: AP portable chest Comparison: CT dated 04/05/2024 Findings: There are coarse bilateral pleural calcifications, consistent with previous asbestos exposu re. Heart size normal. No focal air space disease, pulmonary edema, pleural effusion or suspected pne umothorax. Impression: 1: No acute cardiopulmonary disease. 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 Reviewed, dictated and finalized at location A. Impression: 1: No acute cardiopulmonary disease. 2: Coarse bilateral pleural calcifications, consistent with prior asbestos exp osure.
[2024-05-14 10:29] VITALS: BP 149/60; PULSE 87; RESP 18; TEMP 36.9; O2SAT 95
--- NOTE | 2024-05-14 10:39 | ED_ITS ---
HPI - General Adult General Chief complaint: Shortness of Breath/Dyspnea Stated complaint: dyspnea History of Present Illness HPI narrative: 78-year-old female presents emergency department for evaluation for worsening shortness of breath and cough that is been ongoing for approximately the last week. Patient did have follow-up with her primary care physician and was provided Kervin Wynne but patient states this is not helping her. Patient does have prior history of breast cancer but denies being a smoker and denies any history of underlying lung disease. Related Data Home Medications ?Medication ?Instructions ?Recorded ?Confirmed ?Last Taken ?Type aspirin 81 mg chewable tablet 81 mg PO DAILY 12/01/18 02/22/21 Unknown History atenolol 25 mg tablet 25 mg PO DAILY 12/01/18 02/22/21 Unknown History cyanocobalamin (vitamin B-12) 1,000 mcg PO DAILY 12/01/18 02/22/21 Unknown History 1,000 mcg capsule fluticasone 500 mcg-salmeterol 50 1 inh inhalation Q12H 12/01/18 02/22/21 Unknown History mcg/dose blistr powdr for inhalation (Advair Diskus) gemfibrozil 600 mg tablet (Lopid) 600 mg PO BID 12/01/18 02/22/21 Unknown History glipizide 5 mg tablet (Glucotrol) 5 mg PO TID 12/01/18 02/22/21 Unknown History levothyroxine 100 mcg tablet 100 mcg PO DAILY 12/01/18 02/22/21 Unknown History (Levoxyl) metformin 1,000 mg tablet 1,000 mg PO BID 12/01/18 02/22/21 Unknown History multivitamin 1 tablet PO DAILY 12/01/18 02/22/21 Unknown History phenazopyridine 200 mg tablet 200 mg PO TID PRN Dysuria 12/01/18 02/22/21 Unknown History (Pyridium) simvastatin 40 mg tablet (Zocor) 40 mg PO DAILY 12/01/18 02/22/21 Unknown History Allergies Allergy/AdvReac Type Severity Reaction Status Date / Time Sulfa (Sulfonamide Allergy Hives Verified 08/01/21 15:38 Antibiotics) White Fish Allergy Mild Uncoded 08/01/21 15:38 Review of Systems 2 Review of Systems: All systems reviewed & are unremarkable except as noted in HPI and below PMFSH Past Medical History Medical History Breast cancer Hypertension Surgical History Surgical History H/O bilateral mastectomy Social History Social History (System 08/01/21 @ 15:38 by Darien Salinas) Smoking status: Never smoker Exam 2 Narrative: APPEARANCE: Well appearing, no pain, no distress, well-nourished. HEAD: normocephalic, atraumatic. EYES: PERRLA/EOMI, conjunctivae clear. NOSE: Normal no drainage EARS:TMS clear with good light reflex. THROAT: Pharynx clear, no exudate. NECK: Supple. No adenopathy, no masses. RESPIRATORY: Airway patent, respirations nonlabored. Clear to auscultation bilaterally, no rales, rhonchi, wheezing. CARDIOVASCULAR: Regular rate and rhythm without murmurs rubs or gallops. ABDOMINAL: Soft, nontender, nondistended, normal bowel sounds MUSCULOSKELETAL: Moves all extremities. Strength/ROM intact, No edema, No calf tenderness. NEURO: Alert. Cranial nerves II through XII intact. Grossly intact SKIN: Warm, dry. Normal Color Course Vital Signs Vital signs: Vital Signs Temperature 98.5 F 05/14/24 10:29 Pulse Rate 87 05/14/24 10:29 Respiratory Rate 18 05/14/24 10:29 Blood Pressure 149/60 H 05/14/24 10:29 Pulse Oximetry 95 05/14/24 10:29 Oxygen Delivery Room Air 05/14/24 10:29 Temperature 97.9 F 05/14/24 11:57 Pulse Rate 92 05/14/24 11:57 Respiratory Rate 18 05/14/24 11:57 Blood Pressure 144/73 H 05/14/24 11:57 Pulse Oximetry 95 05/14/24 11:57 Oxygen Delivery Room Air 05/14/24 10:29 Medical Decision Making [facility] Narrative Medical decision making narrative: 70-year-old female presents emergency department for greater than 1 week of cough and congestion. Patient is currently afebrile with no leukocytosis hemoglobin of 13.1. No acute abnormalities on her CMP, patient is diabetic and does have a blood glucose of 265. Patient was negative for influenza RSV and for COVID. Chest x-ray shows no acute cardiopulmonary abnormality. Patient does have a productive cough that has been persistent for greater than 1 week. Patient will be started on antibiotics for home and patient does have Tessalon Perles at home. Patient was also discharged home with an albuterol inhaler. Patient family are comfortable with plan for discharge and close follow-up Differential Diagnosis Differential Diagnosis: Pulmonary edema, pneumonia, COVID, RSV, influenza Vital Signs Vital Signs: Vital Signs Temperature 98.5 F 05/14/24 10:29 Pulse Rate 87 05/14/24 10:29 Respiratory Rate 18 05/14/24 10:29 Blood Pressure 149/60 H 05/14/24 10:29 Pulse Oximetry 95 05/14/24 10:29 Oxygen Delivery Room Air 05/14/24 10:29 Temperature 97.9 F 05/14/24 11:57 Pulse Rate 92 05/14/24 11:57 Respiratory Rate 18 05/14/24 11:57 Blood Pressure 144/73 H 05/14/24 11:57 Pulse Oximetry 95 05/14/24 11:57 Oxygen Delivery Room Air 05/14/24 10:29 Lab Data Lab results reviewed: Yes I reviewed the patient's lab results. 05/14/24 10:50 05/14/24 10:50 Labs: Lab Results 05/14/24 Range/Units 10:50 WBC 7.6 (4.5-10.0) K/mm3 RBC 4.13 L (4.2-5.4) M/mm3 Hgb 13.1 (12.0-15.0) g/dL Hct 39.2 (37.0-47.0) % MCV 94.9 (80-100) fl MCH 31.7 (26-34) pg MCHC 33.4 (32-36) g/dl RDW 12.0 (11.5-14.5) % Plt Count 153 (150-375) k/mm3 MPV 9.0 (7.4-10.4) fl Immature Gran % (Auto) 0.8 H (0-0.5) % Neut % (Auto) 71.3 (45.5-73.1) % Lymph % (Auto) 13.6 L (18.3-44.2) % [place] % (Auto) 10.7 H (2.6-8.5) % Eos % (Auto) 3.2 (0-4.4) % Baso % (Auto) 0.4 (0.2-1.2) % Lymph # (Auto) 1.03 (0.9-3.2) K/mm3 [place] # (Auto) 0.8 H (0.1-0.6) K/mm3 Eos # (Auto) 0.2 (0-0.3) K/mm3 Baso # (Auto) 0.0 (0.0-0.1) K/mm3 Abs Immat Gran (auto) 0.06 H (0.00-0.031) K/mm3 Absolute Neuts (auto) 5.4 (1.3-6.7) K/mm3 Absolute Nucleated RBC 0.000 (0.0-0.012) K/mm3 Nucleated RBC % 0.0 (0.0-0.2) % Sodium 137 (137-145) mmol/L Potassium 3.9 (3.4-5.0) mmol/L Chloride 102 (98-107) mmol/L Carbon Dioxide 27 (22-30) mmol/L Anion Gap 8 (4-12) mmol/L BUN 18 H (7-17) mg/dL Creatinine 0.87 (0.7-1.0) mg/dL Estim Creat Clear Calc Not Reportable Estimated GFR > 60 (59 - ) Glucose 265 H (65-110) mg/dL Calcium 8.9 (8.4-10.2) mg/dL Total Bilirubin 0.6 (0.2-1.3) mg/dL AST 40 H (14-36) U/L ALT 32 (6-35) U/L Alkaline Phosphatase 114 (38-126) U/L Total Protein 7.0 (6.3-8.2) g/dL Albumin 4.0 (3.5-5.1) g/dL Influenza A (RT-PCR) Negative (Negative) Influenza B (RT-PCR) Negative (Negative) RSV (RT-PCR) Negative (Negative) SARS-CoV-2 RNA (RT-PCR) Negative (Negative) Imaging Data Radiologist's impression: Impressions Chest X-Ray 05/14/24 11:25 Impression: 1: No acute cardiopulmonary disease. 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 Discharge Plan Discharge Clinical Impression: Cough, Pneumonia Patient Disposition: Home, Self-Care Condition: Stable Instructions: Antibiotic Form, Community Acquired Pneumonia (ED) Additional Instructions: Antibiotic as directed until completed. Albuterol inhaler for shortness of breath continue the Tessalon Perles for cough. Have close follow-up with your primary care physician. If you have any worsening symptoms then please call or return to the emergency department. Patient Language: Greenlandic Prescriptions: New azithromycin 250 mg tablet See Rx Instructions .ROUTE .COMPLEX Qty: 6 0RF Rx Instructions: For 250 mg dose pack: take 500 mg today (day 1), then 250 mg for 4 days (days 2-5) albuterol sulfate 90 mcg/actuation HFA aerosol inhaler 1 puff inhalation QID Qty: 6.7 0RF amoxicillin-pot clavulanate 875-125 mg tablet 1 tablet PO Q12H 7 Days Qty: 14 0RF No Action phenazopyridine [Pyridium] 200 mg Tablet 200 mg PO TID PRN (Reason: Dysuria) atenolol 25 mg Tablet 25 mg PO DAILY simvastatin [Zocor] 40 mg Tablet 40 mg PO DAILY levothyroxine [Levoxyl] 100 mcg Tablet 100 mcg PO DAILY gemfibrozil [Lopid] 600 mg Tablet 600 mg PO BID Rx Instructions: 30 min before morning and evening meals metformin 1,000 mg Tablet 1,000 mg PO BID fluticasone propion-salmeterol [Advair Diskus] 500-50 mcg/dose Blister With Device 1 inh INHALATION Q12H aspirin 81 mg Tablet,Chewable 81 mg PO DAILY glipizide [Glucotrol] 5 mg Tablet 5 mg PO TID cyanocobalamin (vitamin B-12) 1,000 mcg Capsule 1,000 mcg PO DAILY multivitamin Tablet 1 tablet PO DAILY hydrocodone-acetaminophen 5-300 mg tablet 1 tablet PO Q8H PRN (Reason: pain) Qty: 20 0RF Follow-up/Referrals: Evie,DEMETRIUS Rea [Primary Care Provider] -
[2024-05-14 10:59] LABS: Basophils Percent Auto 0.4 % (0.2-1.2); Eosinophils Absolute Auto 0.2 K/mm3 (0-0.3); Eosinophils Percent Auto 3.2 % (0-4.4); Hematocrit 39.2 % (37.0-47.0); Hemoglobin 13.1 g/dL (12.0-15.0); Immature Granulocyte Absolute 0.06 K/mm3 (0.00-0.031); Immature Granulocyte Percent A 0.8 % (0-0.5); Lymphocytes Absolute Auto 1.03 K/mm3 (0.9-3.2); Lymphocytes Percent Auto 13.6 % (18.3-44.2); Mean Corpuscular HGB Conc 33.4 g/dl (32-36); Mean Corpuscular Hemoglobin 31.7 pg (26-34); Mean Corpuscular Volume 94.9 fl (80-100); Monocytes Absolute Auto 0.8 K/mm3 (0.1-0.6); Monocytes Percent Auto 10.7 % (2.6-8.5); Neutrophils Absolute Auto 5.4 K/mm3 (1.3-6.7); Neutrophils Percent Auto 71.3 % (45.5-73.1); Platelet Count Result 153 k/mm3 (150-375); Red Blood Count 4.13 M/mm3 (4.2-5.4); White Blood Count 7.6 K/mm3 (4.5-10.0)
[2024-05-14 11:00] VITALS: BP 132/48; PULSE 92; RESP 16; TEMP 36.6; O2SAT 95
[2024-05-14 11:09] LABS: Alanine Aminotransferase 32 U/L (6-35); Alkaline Phosphatase 114 U/L (38-126); Anion Gap 8 mmol/L (4-12); Aspartate Amino Transferase 40 U/L (14-36); Bilirubin,Total 0.6 mg/dL (0.2-1.3); Blood Urea Nitrogen 18 mg/dL (7-17); Calcium 8.9 mg/dL (8.4-10.2); Carbon Dioxide 27 mmol/L (22-30); Chloride 102 mmol/L (98-107); Estimated Glomerular Filt Rate > 60; Glucose 265 mg/dL (65-110); Potassium 3.9 mmol/L (3.4-5.0); Sodium 137 mmol/L (137-145)
--- OUTSIDE RECORDS SUMMARY | 2024-05-14 11:26 | XMS_ITS | Clinical Summary ---
Author Organization 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 Gender Identity Not on file Sexual Orientation Not on file Plan of Treatment Health Maintenance Due Date Last Done Comments Hepatitis C Virus (HCV) Screening 1945 TdaP Immunization 1945 Zoster Immunization (1 of 2) 12/28/1995 Pneumococcal Immunization (50+ years) (2 of 2 - PPSV23) 01/07/2019 01/07/2018 Respiratory Syncytial Virus (RSV) Immunization (Adult) (1 - 1-dose 75+ series) 2020 SARS-COV-2 Immunization ( season) 2023 01/02/2021, 05/07/2020, 04/10/2020, Additional history exists Influenza Immunization (Season Ended) 2024 11/29/2019, 03/29/2019, 03/29/2019, Additional history exists Hepatitis B Immunization Aged Out No longer eligible based on patient's age to complete this topic Meningococcal Immunization (ACWY) Aged Out No longer eligible based on patient's age to complete this topic Rotavirus Immunization Aged Out No lo nger eligible based on patient's age to complete this topic
--- OUTSIDE RECORDS SUMMARY | 2024-05-14 11:26 | XMS_ITS | Clinical Summary ---
Author Organization [facility] Address [address] [place] [address] Care Team Providers Care Sales Contracts Analyst Name Role Phone Anastasiya Collins MD Primary Care Provider [phone] Source Comments [facility],non-owned Affiliates and Associated Physician Practices is amultiple site organization consisting of ambulatory clinics and hospital sitesin [place], [place], [place] and [place]. This disclosure is being madepursuant to the Care Everywhere program and may not contain all information available regarding this patient. 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 Oxygen Saturation 100% 11/21/2020 1:00 PM CDT [...] 1-dose 75+ series) 2020 COVID-19 VACCINE ( season) 2023 01/02/2021, 05/07/2020, 04/10/2020, Additional [...] complete this topic MENINGOCOCCAL (Group B) VACCINE SHARED DECISION-MAKING Aged Out No longer eligible based on patient's age to complete this topic MENINGOCOCCAL GROUPS A/C/Y/W VACCINE Aged Out No longer eligible based on patient's age to complete this topic Care Teams Sales Contracts Analyst Relationship Specialty Start Date End Date Anastasiya Collins MD [address] [place] [address] ELIZABETH Cool [phone] PCP - General Family Medicine 09/06/20
--- OUTSIDE RECORDS SUMMARY | 2024-05-14 11:26 | XMS_ITS | Data Portability ---
Author Organization [facility] Neura, Main Office Address [address] [place] [address] Assessment No assessment recorded. Plan of Treatment Reminders Order Date Submit Date Provider Last Modified By Organization Details Last Modified Time Details Appointments None recorded. Lab glycohemogl obin, total, blood [address], [address] [place] [address], [address], 4 16:08:30 CMP, serum or plasma [address], [address] [place] [address], [address], 4 16:08:42 lipid panel, serum [address], [address] [place] [address], [address], 4 16:08:56 CBC [address], [address] [place] [address], [address], 4 16:12:40 urinalysis complete, reflex culture [address], [address] [place] [address], [address], 4 16:28:45 urinalysis, dipstick 2023 024 [email or web address] [address], [place], [address], 4 16:31:03 uric acid, serum or plasma 2023 [email or web address] [facility], [address], [place], [address], 4 16:28:13 vitamin D, 25-hydroxy, total, serum 2023 024 THOMPSON Not available 4 23:48:15 lipid panel, serum 2023 024 THOMPSON Not available 4 20:40:48 hepatic function panel, serum 2023 024 THOMPSON Not available 20:40:53 Referral physical therapist referral - *Please call pt to schedule* 2023 024 [email or web address] 256 [facility] Physical Therapy [address], [place], [address], 09:08:23 psychiatris t referral - Please call patient to schedule an appointment . Thank you. [email or web address] [facility], [address] [place] [address] Dr, [place], [address], 09:10:33 Procedures None recorded. Surgeries None recorded. Imaging None recorded. Medication Orders Lomotil 2.5 mg-0.025 mg tablet 2023 [facility] #[id number], [address], [place], [address], 4 15:57:31 Januvia 100 mg tablet 2023 024 [facility]/Pharmacy #[id number], [address], [place], [address], 4 15:57:29 Rybelsus 7 mg tablet 2023 024 [id number], [address], [place], [address], 4 15:57:29 simvastatin 40 mg tablet 2023 024 [id number], [address], [place], [address], 4 15:57:29 celecoxib 200 mg capsule 2023 024 [facility], [facility], [place], [address], 4 15:56:31 Januvia 100 mg tablet 2023 024 [facility], [facility], [place], [address], 4 15:55:41 Rybelsus 3 mg tablet 2023 024 [facility], [facility], [place], [address], 4 15:55:39 Lomotil 2.5 mg-0.025 mg tablet 2022 023 [id number], [address], [place], [address], 3 17:24:47 aripiprazol e 2 mg tablet 2022 023 [email or web address] [id number], [address], [place], [address], 4 15:41:37 Patient TargetsNo targets recorded. Patient InstructionsNo instructions recorded. Reason for Referral Psychiatrist Referral for De pressive disorder Please call patient to schedule an appointment. Thank you. Referring Physician: Anastasiya Collins, Family Medicine, Encounter Date: 04/30/2023 Physical Therapist Referral for Weakness of bilateral lower limb weakness to carlitos lower extrem *Please call pt to schedule* Referring Physician: David Collier [facility], Encounter Date: 07/02/2023 Results Created Date Observation Date Name Description Value Unit Range Abnormal Flag Note LastModifiedBy Organization Detail LastModifiedTime 04/30/19 24 04/30/2023 LIPID PANEL cholesterol 198 mg/dL 140-19 9 NIH MIAN NSUS RECOM MENDA TION FOR NORMAN STERO L: ADULT CHILD LOW RISK: <200 <170 BORDE RLINE : <200- 239 ----- HIGH RISK: >240 >200 Not Available [facility] (Lab) [address] [place], [address], 04/30/2023 20:40:48 04/30/19 24 04/30/2023 LIPID PANEL triglyceride s 300 mg/dL 0-150 high NIH MIAN NSUS REPOR T RECOM MENDA TION FOR TRIGL YCERI MEENA: ADULT CHILD LOW RISK: <150 ----- BODER LINE: 150-1 99 ----- HIGH RISK: >200 ----- Not Available [facility] (Lab) [address] [place], [address], 04/30/2023 20:40:48 04/30/19 24 04/30/2023 LIPID PANEL HDL cholesterol 59 mg/dL 40- Not Available [facility] (Lab) [address] [place], [address], 04/30/2023 20:40:48 04/30/19 24 04/30/2023 LIPID PANEL [...] WILL NOT BE REPOR JAVAD. Not Available [facility] (Lab) [address] [place], [address], 04/30/2023 20:40:48 04/30/19 24 04/30/2023 HEPAT IC/LI ESTEBAN PANEL alkaline phosphatase 117 U/L 38-126 Not Available [facility] (Lab) [address] [place], [address], 04/30/2023 20:40:53 04/30/19 24 04/30/2023 HEPAT IC/LI ESTEBAN PANEL alanine aminotransfe rase 44 U/L 0-35 high Not Available [facility] (Lab) [address] [place], [address], 04/30/2023 20:40:53 04/30/19 24 04/30/2023 HEPAT IC/LI ESTEBAN PANEL aspartate aminotransfe rase 54 U/L 15-37 high Not Available [facility] (Lab) [address] [place], [address], 04/30/2023 20:40:53 04/30/19 24 04/30/2023 HEPAT IC/LI ESTEBAN PANEL bilirubin, total 0.60 mg/dL 0.20-1 .30 Not Available [facility] (Lab) [address] [place], [address], 04/30/2023 20:40:53 04/30/19 24 04/30/2023 HEPAT IC/LI ESTEBAN PANEL bilirubin, conjugated (direct) 0.00 mg/dL 0.00-0 .30 Not Available [facility] (Lab) [address] [place], [address], 04/30/2023 20:40:53 04/30/19 24 04/30/2023 HEPAT IC/LI ESTEBAN PANEL biliurubin,u ncong. (indirect) 0.40 mg/dL 0.00-1 .1 Not Available [facility] (Lab) [address] [place], [address], 04/30/2023 20:40:53 04/30/19 24 04/30/2023 HEPAT IC/LI ESTEBAN PANEL total protein 7.3 g/dL 6.3-8. 2 Not Available [facility] (Lab) [address] [place], [address], 04/30/2023 20:40:53 04/30/19 24 04/30/2023 HEPAT IC/LI ESTEBAN PANEL albumin 4.2 g/dL 3.0-4. 4 Not Available [facility] (Lab) [address] [place], [address], 04/30/2023 20:40:53 04/30/19 24 04/30/2023 HEPAT IC/LI ESTEBAN PANEL globulin 3.1 g/dL 2.6-4. 2 Not Available [facility] (Lab) [address] [place], [address], 04/30/2023 20:40:53 04/30/19 24 04/30/2023 HEPAT IC/LI ESTEBAN PANEL A/G ratio 1.4 ratio 1.0-2. 0 Not Available [facility] (Lab) [address] [place], [address], 04/30/2023 20:40:53 04/30/19 24 04/30/2023 VITAM IN D 25-HY DROXY [id number] 21.8 NG/mL 30-100 low Vitam in D Statu s: Defic ient: <20 ng/mL Insuf ficie nt: 20-29 ng/mL Suffi cient : 30-10 0 ng/mL Not Available [facility] (Lab) [address] [place], [address], 04/30/2023 20:53:14 07/03/19 24 07/03/2023 urina lysis , dipst ick Leukocytes (reference range: negative peter/ l) Trace Not Available [facility] [address], [place], [address], 07/02/2023 11:51:36 07/03/19 24 07/03/2023 urina lysis , dipst ick Nitrite (reference rage: negative mg/dl) negati ve Not Available [address], [place], [address], 07/02/2023 11:51:36 07/03/19 24 07/03/2023 urina lysis , dipst ick Urobilinogen (reference range: 0.2-1 mg/dl) 0.2 Not Available [address], [place], [address], 07/02/2023 11:51:36 07/03/19 24 07/03/2023 urina lysis , dipst ick Protein (reference range: negative mg/dl) Trace Not Available [address], [place], [address], 07/02/2023 11:51:36 07/03/19 24 07/03/2023 urina lysis , dipst ick pH (reference range: 5-7) 5.5 Not Available [address], [place], [address], 07/02/2023 11:51:36 07/03/19 24 07/03/2023 urina lysis , dipst ick Blood (reference range: negative Yamil/ l) Hemoly zed: Trace Not Available [address], [place], [address], 07/02/2023 11:51:36 07/03/19 24 07/03/2023 urina lysis , dipst ick Specific Gordon (reference range: 1.005-1.030) 1.015 Not Available [address], [place], [address], 07/02/2023 11:51:36 07/03/19 24 07/03/2023 urina lysis , dipst ick Ketone (reference range: negative mg/dl) Trace Not Available [address], [place], [address], 07/02/2023 11:51:36 07/03/19 24 07/03/2023 urina lysis , dipst ick Bilirubin (reference range: negative mg/dl) Negati ve Not Available [address], [place], [address], 07/02/2023 11:51:36 07/03/19 24 07/03/2023 urina lysis , dipst ick Glucose (reference range: negative mg/dl) 1000 Not Available [address], [place], [address], 07/02/2023 11:51:36 07/03/19 24 07/03/2023 urina lysis , dipst ick Appearance Clear Not Available [address], [place], [address], 07/02/2023 11:51:36 07/03/19 24 07/03/2023 urina lysis , dipst ick Color Yellow Not Available [address], [place], [address], 07/02/2023 11:51:36 Result Notes None recorded. Problems Name Problem SNOMED Code Status Onset Date Resolution Date Notes Provider Name and Address Organization Details Recorded Time Postmenopa usal osteoporos is 104146803 Active 2021 Not Available [facility] 3 07:25:28 Pain of right shoulder joint 2755081870068 9100 Active 2021 Not Available [facility] 3 07:25:28 Asthma 158069674 Active 2017 Not Available [facility] 3 07:25:28 Hypothyroi dism 59509132 Active 2020 Not Available [facility] 3 07:25:28 Hyperlipid emia 52358235 Active 2023 Teresa De La Cruz APRN [address], [address], [place], [address] , [employer] [facility] 4 15:52:21 Diabetes mellitus 41184875 Active 2017 Not Available [facility] 3 07:25:29 Primary malignant neoplasm of female breast 57715179 Active 2018 Not Available [facility] 3 07:25:29 Uncontroll ed type 2 diabetes mellitus 226419077 Active 2023 Teresa De La Cruz APRN [address], [address], [place], [address] , [email or web address] [facility] 4 15:52:20 Dyslipidem ia 381648656 Active 2022 Not Available [facility] 3 07:25:28 Vitamin D deficiency 56315817 Active 2023 Teresa De La Cruz APRN [address], [address], [place], [address] , [employer] [facility] 4 15:52:20 Liver enzymes level above reference range 747178888 Active 2022 Not Available [facility] 3 07:25:28 Gastroesop hageal reflux disease without esophagiti s 773033492 Active 2023 Teresa De La Cruz APRN [address], [address], [place], [address] , [employer] [facility] 4 15:52:20 Dysuria 03725364 Active 2022 Not Available [facility] 3 07:25:28 Forgetful 87137857 Active 2022 Not Available [facility] 3 07:25:28 Well controlled type 2 diabetes mellitus 256817027 Active 2022 Not Available [facility] 3 07:25:28 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 2022 Not Available [facility] 3 07:25:28 Non-alcoho lic fatty liver 176013054 Active 2022 Not Available [facility] 3 07:25:28 Urinary incontinen ce 811517003 Active 2022 Anastasiya Collins MD [address], [address], [place], [address] , [place] [facility] 3 14:42:06 Diarrhea 71031629 Active 2022 Anastasiya Collins MD [address], [address], [place], [address] , [place] [facility] 3 17:17:13 Depressive disorder 23642494 Active 2022 Anastasiya Collins MD [address], [address], [place], [address] , [place] [facility] 3 17:17:48 Type 2 diabetes mellitus without complicati on 626084635 Active 2023 Anastasiya Collins MD [address], [address], [place], [address] , [place] [facility] 4 15:41:08 Multiple joint pain 04384701 Active 2023 Anastasiya Collins MD [address], [address], [place], [address] , [place] [facility] 4 15:56:04 Weakness of bilateral lower limb Active 2023 TIN Monreal [address], [address], [place], [address] , [place] [facility] 4 11:54:37 Joint pain 41490349 Active 2023 David Collier, FINANCIAL COORDINATOR-C [address], [address], [place], [address] , [place] [facility] 4 11:59:32 Cobalamin deficiency 761826003 Active 2023 David MAX CollierP-C [address], [address], [place], [address] , [place] [facility] 4 11:06:59 Acute urinary tract infection 466627418 Active 2023 David SHIVA Collier-C [address], [address], [place], [address] , [place] [facility] 4 12:05:31 Body mass index 30+ - obesity 043560346 Active 2023 Teresa De La Cruz APRN [address], [address], [place], [address] , [facility] 4 15:52:20 Recurrent urinary tract infection 423385721 Active 2023 Teresa De La Cruz APRN [address], [address], [place], [address] , [facility] 4 15:52:20 Chronic diarrhea 182590323 Active 2023 Teresa De La Cruz APRN [address], [address], [place], [address] , [facility] 4 15:52:20 Major depressive disorder 459011025 Active 2023 Teresa De La Cruz APRN [address], [address], [place], [address] , [facility] 4 15:52:20 History of bilateral mastectomy 673141838 Active 2023 Teresa De La Cruz APRN [address], [address], [place], [address] , [facility] 4 15:52:20 History of malignant neoplasm of breast 321749676 Active 2023 Teresa De La Cruz APRN [address] [facility], [address], [place], [address] , [place] - [facility] 4 15:52:20 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 Please review these documents and add these problems to the patient's chart manually as needed. Problem Notes None recorded. Procedures Surgical History Date Name Laterality Status Provider Name and Address Organization Details Recorded Time Gallbladder Surgery completed Not Available [facility] 04/10/2022 18:36:43 Masectomy completed Not Available [place] [address] 04/10/2022 18:36:43 tonsillectomy completed Not Available [facility] 04/10/2022 18:36:43 Imaging Results None recorded. Procedure Notes None recorded. Medical Equipment None Reported. Allergies Allergen ID Allergen Name Allergen Category Reaction Reaction Severity Criticality Documentation Date Start Date Code Code System Note Provider Name and Address Organization Details Recorded Time 48873 Substance with sulfonami de structure and antibacte rial mechanism of action (substanc e) medicatio n rash severe Not available 04/10/2022 33102 8003 SNOMED Not Available [facility] 18:40:58 Medications Name Sig Start Date Stop [...] Not Available Not Available No t Available diphenoxy late-atro pine 2.5 mg-0.025 mg [...] Available prednisol one acetate 1 % eye drops,nikhil pension 04/17 completed Not [...] Updated DateTime 3 149.86 cm 37 kg/m2 53794.4 g 97.2 [degF] 84 /min 94 % 94 % 124 mm[Hg] 76 mm[Hg] Cyrus Bhatt RN [facility] 3 17:09:55 Date Recorded Body height Body mass index (BMI) Body weight Body temperature Heart rate Oxygen saturation Oxygen saturation in Arterial blood by Pulse oximetry Systolic blood pressure Diastolic blood pressure Provider Name and Address Organization Details Last Updated DateTime 4 149.86 cm 35.7 kg/m2 55866.8 5 g 98.4 [degF] 86 /min 98 % 98 % 140 mm[Hg] 92 mm[Hg] Cyrus Bhatt RN [facility] 4 15:36:09 Date Recorded Body height Body mass index (BMI) Body weight Body temperature Heart rate Oxygen saturation Oxygen saturation in Arterial blood by Pulse oximetry Systolic blood pressure Diastolic blood pressure Provider Name and Address Organization Details Last Updated DateTime 4 149.86 cm 36 kg/m2 78758.4 4 g 97.5 [degF] 90 /min 96 % 96 % 136 mm[Hg] 76 mm[Hg] Cyrus Bhatt RN [facility] [employer] [facility] 4 11:23:59 Date Recorded Body height Body mass index (BMI) Body weight Body temperature Heart rate Oxygen saturation Oxygen saturation in Arterial blood by Pulse oximetry Systolic blood pressure Diastolic blood pressure Provider Name and Address Organization Details Last Updated DateTime 4 149.86 cm 37.6 kg/m2 24467.1 8 g 98.3 [degF] 71 /min 94 % 94 % 120 mm[Hg] 62 mm[Hg] Ilana Johnson RN [facility] [employer] [facility] 4 15:38:23 Social History Question Answer Notes LastModified by Organizat ion Details LastModified Time Tobacco Smoking Status Never Smoker Not Available [facility] 04/10/2022 18:36:31 Do You Have An Advance Directive? No [id number] Information not available 04/10/2022 What Is Your Level Of Alcohol Consumption? None MIGRATION.[id number] 026 Information not available 04/10/2022 Do You Wear A Helmet When Biking? Yes MIGRATION.[id number] 026 Information not available 04/10/2022 Are You Blind Or Do You Have Difficulty Seeing? No MIGRATION.6713923 026 Information not available 04/10/2022 What Is Your Level Of Caffeine Consumption? Moderate MIGRATION.[id number] 026 Information not available 04/10/2022 Are You Deaf Or Do You Have Serious Difficulty Hearing? No MIGRATION.2759270 026 Information not available 04/10/2022 What Type Of Diet Are You Following? REGULAR MIGRATION.8139548 026 Information not available 04/10/2022 What Is The Highest Grade Or Level Of School You Have Completed Or The Highest Degree You Have Received? YX60193-4 MIGRATION.6773254 026 Information not available 04/10/2022 Have There Been Any Changes To Your Family Or Social Situation? No MIGRATION.3339311 026 Information not available 04/10/2022 What Is The Fluoride Status Of Your Home? Non-fluoridat ed MIGRATION.2460881 026 Information not available 04/10/2022 Are There Any Guns Present In Your Home? No MIGRATION.8112333 026 Information not available 04/10/2022 What Was The Date Of Your Most Recent Tobacco Screening? 08/07/2021 MIGRATION.6497180 026 Information not available 04/10/2022 Have You Ever Been Counseled For Unhealthy Alcohol Use? No MIGRATION.0777095 026 Information not available 04/10/2022 Do You Have Any Pets? Yes MIGRATION.0051581 026 Information not available 04/10/2022 What Is Your Relationship Status? MIGRATION.0604787 026 Information not available 04/10/2022 Do You Use Your Seat Belt Or Car Seat Routinely? Yes MIGRATION.3740435 026 Information not available 04/10/2022 Do You Have Smoke And Carbon Monoxide Detectors In Your Home? Yes MIGRATION.5640262 026 Information not available 04/10/2022 Are You Passively Exposed To Smoke? No MIGRATION.0660316 026 Information not available 04/10/2022 Are There Any Smokers In Your House? No MIGRATION.9532266 026 Information not available 04/10/2022 Do You Participate In Social Media? No MIGRATION.9573933 026 Information not available 04/10/2022 Do You Feel Stressed (tense, Restless, Nervous, Or Anxious, Or Unable To Sleep At Night)? SV60108-4 MIGRATION.2400436 026 Information not available 04/10/2022 Do You Use Any Illicit Or Recreational Drugs? No MIGRATION.9462550 026 Information not available 04/10/2022 Do You Use Sunscreen Routinely? No MIGRATION.7970909 026 Information not available 04/10/2022 Are You Currently In School? No MIGRATION.4699893 026 Information not available 04/10/2022 Do You Have Any Dietary Restrictions? No MIGRATION.0319892 026 Information not available 04/10/2022 Sex: Unknown Functional Status Question Answer Note LastModified by Organizat ion Details LastModified Time Do you have difficulty walking or climbing stairs? No MIGRATION.0056971 026 Information not available 04/10/2022 Do you have transportation difficulties? No MIGRATION.0073057 026 Information not available 04/10/2022 Are you able to walk? YESWOREST MIGRATION.0304727 026 Information not available 04/10/2022 Do you have difficulty doing errands alone? No MIGRATION.5383903 026 Information not available 04/10/2022 Are you able to care for yourself? Yes MIGRATION.0561683 026 Information not available 04/10/2022 Do you have difficulty dressing or bathing? No MIGRATION.0525128 026 Information not available 04/10/2022 What is your exercise level? None MIGRATION.1114687 026 Information not available 04/10/2022 Mental Status Question Answer Note LastModified by Organizat ion Details LastModified Time Do you have difficulty concentrating, remembering or making decisions? No MIGRATION.[id number] 6 Information not available 04/10/2022 Family History Relationship Description Onset Age of this Age Resolved Age Notes LastModified by Organization Details LastModified Time Father Diabetes mellitus [id number].523 [id number] Not available 04/10/2022 18:36:44 Sister Malignant tumor of breast MIGRATION.604 [id number] Not available 04/10/2022 18:36:44 Sister Malignant tumor of pancreas MIGRATION.870 [id number] Not available 04/10/2022 18:36:44 Mother Dementia MIGRATION.259 [id number] Not available 04/10/2022 18:36:44 Medical History Condition Response CANCER: SPECIFY Y THYROID DISEASE Y ARTHRITIS Y DIABETES, TYPE Y URINARY/BLADDER/KIDNEY PROBLEMS Y USE OF NSAIDS Y HAVE YOU BEEN HOSPITALIZED OR SEEN IN [facility] ER IN THE PAST YEAR ? Y HYPERTENSION Y HIGH CHOLESTEROL / HYPERLIPIDEMIA Y Gynecological HistoryNo gynecological history recorded. Obstetrics History GPAL:G 0 P 0 0 0 0 Immunizations Vaccine Type Date Status Note Provider Nam e and Address Organization Details Recorded Time COVID-19, mRNA, LNP-S, PF, 100 mcg/0.5mL dose or 50 mcg/0.25mL dose 1 completed Teresa De La Cruz, SWEATBAND SEPARATOR [address] [facility], [facility] [address], [place], [address], [place] [facility] [place] [employer] [facility] 10/20/2023 15:52:32 Influenza, high-dose, quadrivalent, PF 2 completed Not Available [facility] 09/05/2022 07:25:29 Influenza, high-dose, quadrivalent, PF 1 completed Not Available [facility] 09/05/2022 07:25:29 Influenza, high-dose, quadrivalent, PF 0 completed Not Available [facility] 09/05/2022 07:25:29 Influenza, high-dose, trivalent, PF 0 completed Not Available [facility] 09/05/2022 07:25:29 Pneumococcal conjugate PCV 13 8 completed Not Available [facility] 09/05/2022 07:25:29 Influenza, high-dose, trivalent, PF 8 completed Not Available [facility] 09/05/2022 07:25:29 COVID-19, mRNA, LNP-S, PF, kendall-sucrose, 30 mcg/0.3 mL 4 completed Teresa De La Cruz APRN [address], [place], [address], [facility] [employer] [facility] [employer] [facility] 10/20/2023 15:52:54 zoster recombinant 4 completed Teresa De La Cruz APRN [address], [address], [place], [address], [facility] [employer] [facility] [employer] [facility] 10/20/2023 15:53:02 zoster recombinant 3 completed Teresa De La Cruz APRN [address], [address], [place], [address], [employer] [facility] [employer] [facility] 10/20/2023 15:53:37 COVID-19, mRNA, LNP-S, PF, 100 mcg/0.5mL dose or 50 mcg/0.25mL dose [address], [place], [address], [employer] [facility] [employer] [facility] 10/20/2023 15:52:32 COVID-19, mRNA, LNP-S, PF, 100 mcg/0.5mL dose or 50 mcg/0.25mL dose 1 completed Teresa De La Cruz APRN [address], [address], [place], [address], [employer] [facility] [employer] [facility] 10/20/2023 15:52:32 COVID-19, mRNA, LNP-S, PF, 100 mcg/0.5mL dose or 50 mcg/0.25mL dose completed Tersea De La Cruz, [employer] SEPARATOR [address] [facility], [place], [address], [facility] 10/20/2023 15:52:32 Past Encounters Encounter ID Performer Location Encounter Start Date Encounter Closed Date Diagnosis/Indication Diagnosis SNOMED-CT Code Diagnosis ICD10 Code Diagnosis Note [id number] [facility] [place] [address] [place] [address] [address] [place] [address] 06/09/2020 00:00:00 06/09/2020 18:17:29 [id number] [facility] [place] [address] [facility] [address] [place] [address] 09/18/2020 00:00:00 09/18/2020 17:05:38 [id number] [facility] [address] [place] [address] 140 [place] [address] 01/17/2021 00:00:00 02/08/2021 08:59:35 [id number] [facility] [place] [address] [place] [address] 140 [place] [address] 01/19/2021 00:00:00 01/19/2021 16:04:19 [id number] [facility] [address] [place] [address] [address] [place] [address] 06/27/2021 00:00:00 07/09/2021 20:15:18 [id number] [facility] [address] [place] [address] 140 [place] [address] 07/24/2021 00:00:00 07/30/2021 21:19:27 [id number] [facility] [place] [address] [facility] [address] [place] [address] 08/07/2021 00:00:00 08/07/2021 10:07:08 [id number] _ATHENA_M IGRATION_ DEFAULT_1 _1 , 08/16/2021 00:00:00 08/16/2021 15:26:39 [id number] [facility] [place] [address] [place] [address] 08/24/2021 00:00:00 08/24/2021 11:58:09 [id number] [facility] [place] [address] [place] [address] 09/18/2021 00:00:00 09/18/2021 12:36:09 [id number] _ATHENA_M IGRATION_ DEFAULT_1 _1 , 09/27/2021 00:00:00 09/27/2021 13:48:33 [id number] [facility] [place] [address] [place] [address] 10/05/2021 00:00:00 10/05/2021 15:09:16 [id number] [facility] [place] [address] [place] [address] 11/06/2021 00:00:00 11/06/2021 17:32:43 [id number] [facility] [place] [address] [place] [address] 11/15/2021 00:00:00 12/09/2021 22:52:40 [id number] [facility] [place] [address] [place] [address] 12/26/2021 00:00:00 01/08/2022 20:26:17 [id number] [facility] [place] [address] [place] [address] 02/06/2022 00:00:00 02/06/2022 11:38:13 [id number] [facility] [place] [address] [place] [address] 03/19/2022 00:00:00 03/19/2022 11:59:23 [id number] Anastasiya Collins MD [facility] [place] [address] [place] [address] 04/29/2022 10:18:49 04/29/2022 11:15:40 Uncontrolled type 2 diabetes mellitus [id number] E11.65 not in good controlcon tinue janumet xr 100/1000 mg once per day in AM-samples givenincre ase rybelsus 7 mg daily with foodf/u in 4 weeks or sooner if needed [id number] Luna Anand MD [facility] [place] [address] [place] [address] 05/13/2022 09:34:32 05/13/2022 10:58:00 Uncontrolled type 2 diabetes mellitus 080920062 E11.65 a1c of 10.1% up from 8.2%- [...] Recommende d patient to utilize the diabetesfo Stevia First.tripJane from the ADA website to help with food preparatio n as this presents ideal carb content per meal so this will make carb counting much easier for patient. Recommende d she incorporat e natural insulin manager flight operations s such as pears, apples, cinnamon, rea and sweet potatoes to help mobilize her endogenous insulin. Recommende d up to 150 minutes of moderate level activity/e xercise weekly. Dyslipidemia [id number] E 78.5 LDL in range- continue statin therapy- TG levels over 300 mg/dL- will trial on vascepa 2 grams twice daily with meals. Continue low dose LT4 25 mcg daily- monitor thyroid function. Postmenopa usal osteoporosis 047641974 M81.0 Will provide prolia injection in clinic today- due for repeat in early November. Repeat bone density in spring 2023 to monitor progress. Vitamin D deficiency 347 50027 E55.9 Start on vitamin D 50 once weekly as levels low- goal vit D of 50 ng/mL to optimize bone and immune health. Liver enzy mes level above reference range 540500434 R74.01 Send for liver ultrasound and secondary [...] she chooses to go outside of the [facility] to obtain labwork she was [...] in her case. She voiced understand ing. [id number] Anastasiya Collins MD [facility] [place] [address] [facility] [address] [facility] [place] [address] 05/30/2022 12:19:24 05/30/2022 12:39:31 Uncontrolled type 2 diabetes mellitus 466901571 E11.65 not in good controlcon tinue janumet xr 100/1000 mg once per day in AM-samples givenincre ase rybelsus 7 mg daily with foodf/u in 4 weeks or sooner if needed 05/30/22 improved-c ontinue farxiga, rybelsus, janumet xrf/u in 3 months [id number] Anastasiya Collins MD [facility] [address] [facility] [address] [facility] [place] [address] 08/29/2022 13:55:58 08/29/2022 14:56:39 Uncontrolled type 2 diabetes mellitus 176003273 E11.65 stablehas labs ordered by endocrine Forgetful 14970387 R41.3 MMSE 29/30mood may be playing a significan t roled/c citalopram 20 mg dailytrial of escitalopr am 20 mg dailyf/u in 4 weeks or sooner if needed Dysuria 03385319 R30.0 [id number] Luna Anand MD [facility] [place] [address] [place] [address] 09/03/2022 10:18:07 09/03/2022 11:34:04 Well controlled type 2 diabetes mellitus 157160883 E11.9 A1 of 7.3% down from 10.1%- continue on farxiga 10 mg daily and continued on janumet and glipizide. Provided rybelsus samples at low dose. Discussed carb counting and how to read food labels. Recommende d patient to utilize the diabetesfo Stevia First[employer]tripJane from the ADA website to help with food preparatio n as this presents ideal carb content per meal so this will make carb counting much easier for patient. Recommende d she incorporat e natural insulin manager flight operations s such as pears, apples, cinnamon, rea and sweet potatoes to help mobilize her endogenous insulin. Recommende d up to 150 minutes of moderate level activity/e xercise weekly. Non-alcoho lic fatty liver 107428459 K76.[address]- patient has [...] answered and refills necessary at visit today. [id number] Anastasiya Collins MD [facility] [address] [place] [address] 10/08/2022 14:23:10 10/08/2022 14:56:14 Hyperlipidemia 41978299 E78.5 continue simvastati n 40 mg dailycanno t tolerate vascepa Urinary incontinence 165 827771 R32 sample given of myrbetriq 25 mg qday Forgetful 82796585 R41.3 MMSE mood may be playing a significan t roled/c citalopram 20 mg dailytrial of escitalopr am 20 mg dailyf/u in 4 weeks or sooner if needed update 10/08/22: Improved with escitalopr am 20 mg daily [id number] Anastasiya Collins MD [facility] [address] [address] 12/26/2022 17:04:48 12/26/2022 17:26:01 Diarrhea 81546370 R19.7 lomotil prnhold janumetsam ple given of januvia 100 mg daily to see if d/c metformin helps diarrheaf/ u in 8 weeks Depressive disorder 3548 9007 F32.A not in good controladd aripiprazo le 2 mg po qdayReview ed potential med s/e, d/c and be seen if any si/hif/u in 8 weeks or sooner if needed [id number] Anastasiya Collins MD [facility] [address] [address] 04/30/2023 15:27:09 04/30/2023 16:06:18 Depressive disorder 89205053 F32.A not in good controladd aripiprazo le 2 mg po qdayReview ed potential med s/e, d/c and be seen if any si/hif/u in 8 weeks or sooner if needed update 04/30/23: ok to remain off aripiprazo lepsychiat ry referral given Type 2 good betes mellitus without complication 784266131 E11.9 was in better control on januvia and rybelsusst ay off metformin due to GI symptomsch ravi labs Vitamin D deficiency 347 70315 E55.9 Hyperlipidemia 19551837 E78.5 continue simvastati n 40 mg dailycanno t tolerate vascepa Multiple joint pain 3567 8005 M25.50 Refill given [id number] SHIVA Monreal-Inga [facility] [address] [place] [address] 07/02/2023 11:15:17 07/02/2023 12:15:10 Dysuria 45749167 R30.0 R30.9 -burning, frequency- right flank pain-urine dip, UA obtained Diarrhea 44204900 R19.7 -possibly related to medication s-was given lomotil with some positive results-lo w natural fiber intake, encouraged to increase rather than starting new meds Weakness o f bilateral lower limb 8066258956 53500 M62.81 -noting new weakness to lower legs-PT referral given Joint pain 83641021 M25. 50 -pt has concerns for gout, ruling out with labs [id number] TIN Monreal [facility] [address] [place] [address] 07/03/2023 16:13:32 08/04/2023 17:50:09 [id number] TIN Monreal [facility] [address] [place] [address] 08/08/2023 15:25:50 08/08/2023 16:10:14 Diarrhea 16642525 R19.7 refill lomotil givenencou raged to use daily Type 2 good betes mellitus without complication 998178379 E11.9 increasing rybelsus to 7mg Hyperlipidemia 51425493 E78.5 Anemia screening 07 Z13.0 Health Concerns Section Related Observation LastModified by Organization Detai ls LastModified Time None Recorded Concern Status LastModified by Organization Details LastModified Time None Recorded Advance Directives Directive N: Payers Encounter Date Sequence Insurance Name Policy Number Policy Kraft Covered Member ID Kraft Member ID Guarantor Name 12/26/2022 1 [facility] (MEDICARE REPLACEMENT/A DVANTAGE - HMO) [id number] Anu Hedrick [id number] Anu Hedrick 04/30/2023 1 [employer] (MEDICARE REPLACEMENT HMO) [id number] Anu Hedrick [id number] Anu Hedrick 07/02/2023 1 [employer] (MEDICARE REPLACEMENT HMO) [id number] Anu Hedrick [id number] Anu Hedrick 07/03/2023 1 [employer] (MEDICARE REPLACEMENT HMO) [id number] Skip Hedrick [id number] Anu Hedrick 08/08/2023 1 [employer] (MEDICARE REPLACEMENT HMO) [id number] Skip Hedrick [id number] Anu Hedrick Notes Date Note Type Note [...] blah, no energy Anastasiya Collins MD [address] [facility] [address], [place], [address], [place] - [email or web address] 01/08/2023 17:55:42 04/30/2023 text/html Not doing good, [...] 3 mg daily. Anastasiya Collins MD [address] [address], [place], [address], [employer] [facility] [employer] 05/11/2023 09:11:33 07/02/2023 text/html pt is here for f/u TIN Rapp [address] [address], [place], [address], [employer] [facility] [employer] 07/02/2023 12:23:40 08/08/2023 text/html pt is here for f/u TIN Rapp [address] [address], [place], [address], [employer] [facility] [employer] 08/08/2023 15:57:56 OBGyn Episode No OBEpisode recorded.
--- OUTSIDE RECORDS SUMMARY | 2024-05-14 11:27 | XMS_ITS | CONTINUITY OF CARE DOCUMENT ---
Author Name noreen sorto Address Unknown Organization [facility] Address [address] [place] [address] Phone [phone] Care Team Providers Care Sodder Name Role Phone Neeraj RINCON, Travis Unavailable [phone] HEIDI ALDRIDGE MD Unavailable INSURANCE PROVIDERS Payer name Policy type / Coverage type [employer] party ID [facility] Other [id number]
--- OUTSIDE RECORDS SUMMARY | 2024-05-14 11:27 | XMS_ITS | Data Portability ---
Author Organization [facility] Address [address] [place] [address] Care Team Providers Care Assistant Food Service Manager Name Role Phone ELLISRONA HENNING Primary Care Provider Unavailab le Assessment Encounter Date Assessment Date Assessment LastModified by Organization Details LastModified Time 10/10/2023 10/10/2023 Follow-up appointment scheduled for November 27 with provider [email or web address] Not available 10/13/2023 11:21:43 11/28/2023 11/28/2023 Next appointment scheduled for February 26 [email or web address] Not available 12/14/2023 17:22:40 Plan of Treatment Reminders Order Date Submit Date Provider Last Modified By Organization Details Last Modified Time Details Appointments None recorde d. Lab HbA1c (hemogl obin A1c), blood 2024 025 [facility], [address], [place], [address], 09:08:32 BMP, serum or plasma 2024 025 [facility], [address], [place], [address], 09:08:31 hepatic functio n panel, serum 2024 025 [facility], [address], [place], [address], 09:08:30 CBC w/ auto diff 2024 025 [facility], [address], [place], [address], 5 09:08:33 HbA1c (hemogl obin A1c), blood 2023 024 [facility] (Outpatient Orders), [address] [place], [address], 4 19:35:44 microal bumin, urine 2023 024 [facility], [address], [place], [address], 4 13:07:30 culture , urine 2023 024 [facility], [address], [place], [address], 4 09:10:51 urinaly sis, complet e 2023 024 [facility], [address], [place], [address], 4 13:07:32 CBC w/ auto diff 2023 024 [facility] (Outpatient Orders), [address] [place], [address], 4 19:34:54 hepatic functio n panel, serum 2023 024 [facility] (Outpatient Orders), [address] [place], [address], 4 19:35:19 BMP, serum or plasma 2023 024 [facility] (Outpatient Orders), [address] [place], [address], 4 19:36:08 lipid panel, serum 2023 024 [facility] (Outpatient Orders), [address] [place], [address], 4 19:35:32 culture , urine 2023 024 [facility] (Outpatient Orders), [address] [place], [address], 4 15:13:58 urinaly sis, complet e 2023 024 [facility] (Outpatient Orders), [address] [place], [address], 4 10:14:48 CBC w/ auto diff 2023 024 [facility] (Outpatient Orders), [address] [place], [address], 4 10:14:49 hepatic functio n panel, serum 2023 024 [facility] (Outpatient Orders), [address] [place], [address], 4 10:14:45 BMP, serum or plasma 2023 024 [facility] (Outpatient Orders), [address] [place], [address], 4 10:14:46 TSH + free T4, serum 2023 024 [facility] (Outpatient Orders), [address] [place], [address], 4 10:14:44 lipid panel, serum 2023 024 [facility] (Outpatient Orders), [address] [place], [address], 4 10:14:44 vitamin B12 + folate, serum or blood 2023 024 [facility] (Outpatient Orders), [address] [place], [address], 4 10:14:47 HbA1c (hemogl obin A1c), blood 2023 024 [facility] (Outpatient Orders), [address] [place], [address], 4 10:14:[address] referra l 2024 025 [email or web address] Shine Lombardo MD, [address], [address], [place], [address], 5 08:44:[address] referra l [email or web address] [facility] [place], [address] [facility], [place], [address], 5 15:59:37 nutriti onist/d ietitia n referra l [address] [facility], [address], [place], [address], 5 10:47:[address] referra l 2023 024 [facility], [address] [facility], [place], [address], 5 08:42:25 diabeti c ophthal mology referra l 2023 024 [facility], [address], [place], [address], 4 07:45:25 Procedures diagnos tic colonos copy (PROC) 2023 024 BR[facility]SON Edith Rutledge MD, [address], [address], [place], [address], 19:18:26 Surgeries None recorde d. Imaging CT, urogram - please call patient to janki colón appt. 2024 025 [facility] (Imaging), [address], [place], [address], 5 23:17:49 Medication Orders donepez il 5 mg tablet 2024 025 [id number], [address], [place], [address], 5 15:40:19 escital opram 10 mg tablet 2024 025 [id number], [address], [place], [address], 5 16:25:09 Lantus Solosta r U-100 Insulin 100 unit/mL (3 mL) subcuta neous pen 2023 024 [id number], [address], [place], [address], 4 10:29:42 bupropi on HCl XL 150 mg 24 hr tablet, extende d release 2023 024 [id number], [address], [place], [address], 4 12:30:48 simvast atin 40 mg tablet 2023 025 [id number], [address], [place], [address], 5 17:53:41 Patient TargetsNo targets recorded. Patient Instructions Encounter Date Encounter Id Patient Instructions Last Modified By Organization Details Last Modified Time 10/10/2023 [id number] A healthy lifestyle: care instructions [email or web address] Not available 10/13/2023 11:19:31 Reason for Referral Diabetic Ophthalmology Refer ral for Uncontrolled type 2 diabetes mellitus Referring Physician: Rona Case [facility], Encounter Date: 10/10/2023 Client Resolution Specialist/dietitian Refer ral for Uncontrolled type 2 diabetes mellitus poorly controlled diabetes, on insulin Referring Physician: Rona Case [facility], Encounter Date: 01/22/2024 Physical Therapist Referral for Unsteady when walking Referring Physician: Rona [facility], Encounter Date: 01/22/2024 Urologist Referral for Micro scopic hematuria Referring Physician: Rona [facility], Encounter Date: 04/23/2024 Physical Therapist Referral for Unsteady when walking Referring Physician: Rona [facility], Encounter Date: 04/23/2024 Results Created Date Observation Date Name Description Value Unit Range Abnormal Flag Note LastModifiedBy Organization Detail LastModifiedTime 10/28/1910/29/2023 TSH+F REE T4 TSH 3.550 uIU/m L 0.450- 4.500 Not Available [facility] ([facility]) [address] [place], [address], 10/29/2023 10:14:44 10/28/19 24 10/29/2023 TSH+F REE T4 T4,free(dire ct) 0.89 NG/dL 0.82-1 .77 Not Available [facility] ([facility]) [address] [place], [address], 10/29/2023 10:14:44 10/28/19 24 10/29/2023 LIPID PANEL cholesterol, total 243 mg/dL 100-19 9 above high normal Not Available [facility] ([facility]) [address] [place], [address], 10/29/2023 10:14:44 10/28/19 24 10/29/2023 LIPID PANEL triglyceride s 586 mg/dL 0-149 alert high Not Available [facility] ([facility]) [address] [place], [address], 10/29/2023 10:14:44 10/28/19 24 10/29/2023 LIPID PANEL HDL cholesterol 44 mg/dL >39 Not Available [facility] ([facility]) [address] [place], [address], 10/29/2023 10:14:44 10/28/19 24 10/29/2023 LIPID PANEL VLDL cholesterol milly 99 mg/dL 5-40 above high normal Not Available [facility] ([facility]) [address] [place], [address], 10/29/2023 10:14:44 10/28/19 24 10/29/2023 LIPID PANEL LDL chol calc ([facility] [place]) 100 mg/dL 0-99 above high normal Not Available [facility] ([facility]) [address] [place], [address], 10/29/2023 10:14:44 10/28/19 24 10/29/2023 HEPAT IC FUNCT ION PANEL (7) protein, total 6.7 g/dL 6.0-8. 5 Not Available [facility] ([facility]) [address] [place], [address], 10/29/2023 10:14:45 10/28/19 24 10/29/2023 HEPAT IC FUNCT ION PANEL (7) albumin 3.9 g/dL 3.8-4. 8 Not Available [facility] ([facility]) [address] [place], [address], 10/29/2023 10:14:45 10/28/19 24 10/29/2023 HEPAT IC FUNCT ION PANEL (7) bilirubin, total 0.4 mg/dL 0.0-1. 2 Not Available [facility] ([facility]) [address] [facility] [place], [address], 10/29/2023 10:14:45 10/28/19 24 10/29/2023 HEPAT IC FUNCT ION PANEL (7) bilirubin, direct 0.13 mg/dL 0.00-0 .40 Not Available [facility] ([facility]) [address] [facility] [place], [address], 10/29/2023 10:14:45 10/28/19 24 10/29/2023 HEPAT IC FUNCT ION PANEL (7) alkaline phosphatase 95 IU/L 44-121 Not Available [facility] ([facility]) [address] [facility] [place], [address], 10/29/2023 10:14:45 10/28/19 24 10/29/2023 HEPAT IC FUNCT ION PANEL (7) AST (SGOT) 35 IU/L 0-40 Not Available [facility] ([facility]) [address] [facility], [place], [address], 10/29/2023 10:14:45 10/28/19 24 10/29/2023 HEPAT IC FUNCT ION PANEL (7) ALT (SGPT) 35 IU/L 0-32 above high normal Not Available [facility] ([facility]) [address] [facility], [place], [address], 10/29/2023 10:14:45 10/28/19 24 10/29/2023 MICRO SCOPI C EXAMI NATIO N WBC >30 /hpf 0-5 abnormal Not Available [facility] ([facility]) [address] [facility] [place], [address], 10/29/2023 10:14:46 10/28/19 24 10/29/2023 MICRO SCOPI C EXAMI NATIO N RBC NONE SEEN /hpf 0-2 Not Available [facility] ([facility]) [address] [place], [address], 10/29/2023 10:14:46 10/28/19 24 10/29/2023 MICRO SCOPI C EXAMI NATIO N epithelial cells (non renal) 0-10 /hpf 0-10 Not Available [facility] ([facility]) [address] [facility], [place], [address], 10/29/2023 10:14:46 10/28/19 24 10/29/2023 MICRO SCOPI C EXAMI NATIO N casts NONE SEEN /lpf nonese en Not Available [facility] ([facility]) [address] [facility], [place], [address], 10/29/2023 10:14:46 10/28/19 24 10/29/2023 MICRO SCOPI C EXAMI NATIO N bacteria MANY nonese en/few abnormal Not Available [facility] ([facility]) [address] [facility], [place], [address], 10/29/2023 10:14:46 10/28/19 24 10/29/2023 BMP7+ EGFR glucose 241 mg/dL 70-99 above high normal Not Available [facility] ([facility]) [address] [facility], [place], [address], 10/29/2023 10:14:46 10/28/19 24 10/29/2023 BMP7+ EGFR BUN 27 mg/dL 8-27 Not Available [facility] ([facility]) [address] [facility], [place], [address], 10/29/2023 10:14:46 10/28/19 24 10/29/2023 BMP7+ EGFR creatinine 1.01 mg/dL 0.57-1 .00 above high normal Not Available [facility] ([facility]) [address] [facility], [place], [address], 10/29/2023 10:14:46 10/28/19 24 10/29/2023 BMP7+ EGFR eGFR 57 mL/mi n/1.7 3 >59 below low normal Not Available [facility] ([facility]) [address] [facility], [place], [address], 10/29/2023 10:14:46 10/28/19 24 10/29/2023 BMP7+ EGFR sodium 138 mmol/ L 134-14 4 Not Available [facility] ([facility]) [address] [facility] [place], [address], 10/29/2023 10:14:46 10/28/19 24 10/29/2023 BMP7+ EGFR potassium 3.7 mmol/ L 3.5-5. 2 Not Available [facility] ([facility]) [address] [facility] [place], [address], 10/29/2023 10:14:46 10/28/19 24 10/29/2023 BMP7+ EGFR chloride 101 mmol/ L 96-106 Not Available [facility] ([facility]) [address] [place], [address], 10/29/2023 10:14:46 10/28/19 24 10/29/2023 BMP7+ EGFR carbon dioxide, total 20 mmol/ L 20-29 Not Available [facility] ([facility]) [address] [place], [address], 10/29/2023 10:14:46 10/28/19 24 10/29/2023 VITAM IN B12 AND FOLAT E vitamin B12 1247 pg/mL 232-12 45 above high normal Not Available [facility] ([facility]) [address] [facility] [place], [address], 10/29/2023 10:14:47 10/28/19 24 10/29/2023 VITAM IN B12 AND FOLAT E folate (folic acid), serum 7.8 NG/mL >3.0 A serum folat e madhavi ntrat ion of less than 3.1 ng/mL is consi dered to repre sent clini milly defic iency . Not Available [facility] ([facility]) [address] [facility], [place], [address], 10/29/2023 10:14:47 10/28/19 24 10/29/2023 HEMOG LOBIN A1C hemoglobin A1C 10.4 % 4.8-5. 6 above high normal Predi abete s: 5.7 - 6.4 Diabe radha: >6.4 Glyce jose contr ol for adult s with diabe radha: <7.0 Not Available [facility] ([facility]) [address] [facility], [place], [address], 10/29/2023 10:14:48 10/28/19 24 10/29/2023 URINA LYSIS , COMPL ETE specific gravity 1.025 1.005- 1.030 Not Available [facility] ([facility]) [address] [facility] [place], [address], 10/29/2023 10:14:48 10/28/19 24 10/29/2023 URINA LYSIS , COMPL ETE pH 5.5 5.0-7. 5 Not Available [facility] ([facility]) [address] [place], [address], 10/29/2023 10:14:48 10/28/19 24 10/29/2023 URINA LYSIS , COMPL ETE urine-color YELLOW yellow Not Available [facility] ([facility]) [address] [place], [address], 10/29/2023 10:14:48 10/28/19 24 10/29/2023 URINA LYSIS , COMPL ETE appearance CLOUDY clear abnormal Not Available [facility] ([facility]) [address] [place], [address], 10/29/2023 10:14:48 10/28/19 24 10/29/2023 URINA LYSIS , COMPL ETE WBC esterase 1+ negati ve abnormal Not Available [facility] ([facility]) [address] [place], [address], 10/29/2023 10:14:48 10/28/19 24 10/29/2023 URINA LYSIS , COMPL ETE protein 1+ negati ve/tra ce abnormal Not Available [facility] ([facility]) [address] [facility], [place], [address], 10/29/2023 10:14:48 10/28/19 24 10/29/2023 URINA LYSIS , COMPL ETE glucose 3+ negati ve abnormal Not Available [facility] ([facility]) [address] [place], [address], 10/29/2023 10:14:48 10/28/19 24 10/29/2023 URINA LYSIS , COMPL ETE ketones TRACE negati ve abnormal Not Available [facility] ([facility]) [address] [place], [address], 10/29/2023 10:14:48 10/28/19 24 10/29/2023 URINA LYSIS , COMPL ETE occult blood NEGATI VE negati ve Not Available [facility] ([facility]) [address] [place], [address], 10/29/2023 10:14:48 10/28/19 24 10/29/2023 URINA LYSIS , COMPL ETE bilirubin NEGATI VE negati ve Not Available [facility] ([facility]) [address] [place], [address], 10/29/2023 10:14:48 10/28/19 24 10/29/2023 URINA LYSIS , COMPL ETE urobilinogen ,semi-qn 0.2 mg/dL 0.2-1. 0 Not Available [facility] ([facility]) [address] [place], [address], 10/29/2023 10:14:48 10/28/19 24 10/29/2023 URINA LYSIS , COMPL ETE nitrite, urine POSITI VE negati ve abnormal Not Available [facility] ([facility]) [address] [facility], [place], [address], 10/29/2023 10:14:48 10/28/19 24 10/29/2023 URINA LYSIS , COMPL ETE microscopic examination SEE BELOW: Micro scopi c was indic ated and was perfo rmed. Not Available [facility] ([facility]) [address] [facility], [place], [address], 10/29/2023 10:14:48 10/28/19 24 10/29/2023 CBC WITH DIFFE RENTI AL/PL ATELE T WBC 6.7 x10e3 /uL 3.4-10 .8 Not Available [facility] ([facility]) [address] [facility], [place], [address], 10/29/2023 10:14:49 10/28/19 24 10/29/2023 CBC WITH DIFFE RENTI AL/PL ATELE T RBC 4.20 x10e6 /uL 3.77-5 .28 Not Available [facility] ([facility]) [address] [facility], [place], [address], 10/29/2023 10:14:49 10/28/19 24 10/29/2023 CBC WITH DIFFE RENTI AL/PL ATELE T hemoglobin 13.5 g/dL 11.1-1 5.9 Not Available [facility] ([facility]) [address] [place], [address], 10/29/2023 10:14:49 10/28/19 24 10/29/2023 CBC WITH DIFFE RENTI AL/PL ATELE T hematocrit 42.4 % 34.0-4 6.6 Not Available [facility] ([facility]) [address] [facility], [place], [address], 10/29/2023 10:14:49 10/28/19 24 10/29/2023 CBC WITH DIFFE RENTI AL/PL ATELE T MCV 101 fL 79-97 above high normal Not Available [facility] ([facility]) [address] [facility], [place], [address], 10/29/2023 10:14:49 10/28/19 24 10/29/2023 CBC WITH DIFFE RENTI AL/PL ATELE T MCH 32.1 pg 26.6-3 3.0 Not Available [facility] ([facility]) [address] [facility], [place], [address], 10/29/2023 10:14:49 10/28/19 24 10/29/2023 CBC WITH DIFFE RENTI AL/PL ATELE T MCHC 31.8 g/dL 31.5-3 5.7 Not Available [facility] ([facility]) [address] [facility], [place], [address], 10/29/2023 10:14:49 10/28/19 24 10/29/2023 CBC WITH DIFFE RENTI AL/PL ATELE T RDW 12.6 % 11.7-1 5.4 Not Available [facility] ([facility]) [address] [facility], [place], [address], 10/29/2023 10:14:49 10/28/19 24 10/29/2023 CBC WITH DIFFE RENTI AL/PL ATELE T platelets 208 x10e3 /uL 150-45 0 Not Available [facility] ([facility]) [address] [facility], [place], [address], 10/29/2023 10:14:49 10/28/19 24 10/29/2023 CBC WITH DIFFE RENTI AL/PL ATELE T neutrophils 68 % notest ab. Not Available [facility] ([facility]) [address] [facility], [place], [address], 10/29/2023 10:14:49 10/28/19 24 10/29/2023 CBC WITH DIFFE RENTI AL/PL ATELE T lymphs 22 % notest ab. Not Available [facility] ([facility]) [address] [facility], [place], [address], 10/29/2023 10:14:49 10/28/19 24 10/29/2023 CBC WITH DIFFE RENTI AL/PL ATELE T monocytes 6 % notest ab. Not Available [facility] ([facility]) [address] [facility], [place], [address], 10/29/2023 10:14:49 10/28/19 24 10/29/2023 CBC WITH DIFFE RENTI AL/PL ATELE T eos 2 % notest ab. Not Available [facility] ([facility]) [address] [facility], [place], [address], 10/29/2023 10:14:49 10/28/19 24 10/29/2023 CBC WITH DIFFE RENTI AL/PL ATELE T basos 1 % notest ab. Not Available [facility] ([facility]) [address] [facility], [place], [address], 10/29/2023 10:14:49 10/28/19 24 10/29/2023 CBC WITH DIFFE RENTI AL/PL ATELE T neutrophils (absolute) 4.6 x10e3 /uL 1.4-7. 0 Not Available [facility] ([facility]) [address] [facility], [place], [address], 10/29/2023 10:14:49 10/28/19 24 10/29/2023 CBC WITH DIFFE RENTI AL/PL ATELE T lymphs (absolute) 1.5 x10e3 /uL 0.7-3. 1 Not Available [facility] ([facility]) [address] [place], [address], 10/29/2023 10:14:49 10/28/19 24 10/29/2023 CBC WITH DIFFE RENTI AL/PL ATELE T monocytes(ab solute) 0.4 x10e3 /uL 0.1-0. 9 Not Available [facility] ([facility]) [address] [place], [address], 10/29/2023 10:14:49 10/28/19 24 10/29/2023 CBC WITH DIFFE RENTI AL/PL ATELE T eos (absolute) 0.1 x10e3 /uL 0.0-0. 4 Not Available [facility] ([facility]) [address] [facility], [place], [address], 10/29/2023 10:14:49 10/28/19 24 10/29/2023 CBC WITH DIFFE RENTI AL/PL ATELE T baso (absolute) 0.0 x10e3 /uL 0.0-0. 2 Not Available [facility] ([facility]) [address] [facility], [place], [address], 10/29/2023 10:14:49 10/28/19 24 10/29/2023 CBC WITH DIFFE RENTI AL/PL ATELE T immature granulocytes 1 % notest ab. Not Available [facility] ([facility]) [address] [place], [address], 10/29/2023 10:14:49 10/28/19 24 10/29/2023 CBC WITH DIFFE RENTI AL/PL ATELE T immature grans (abs) 0.1 x10e3 /uL 0.0-0. 1 Not Available [facility] ([facility]) [address] [place], [address], 10/29/2023 10:14:49 10/28/19 24 10/31/2023 URINE CULTU RERUSSELL urine culture, routine FINAL REPORT abnormal Not Available [facility] ([facility]) [address] [place], [address], 10/31/2023 15:13:58 10/28/19 24 10/31/2023 URINE CULTU RERUSSELL NE result 1 ESCHER ICHIA COLI abnormal [...] Prote us mirab ilis. Not Available [facility] ([facility]) [address] [facility], [place], [address], 10/31/2023 15:13:58 10/28/1910/31/2023 URINE CULTU RE, ROUTI [...] thopr im/Mcdonough lfa S Not Available [facility] ([facility]) [address] [facility], [place], [address], 10/31/2023 15:13:58 01/16/20 24 01/17/2024 MICRO SCOPI C EXAMI NATIO N WBC None seen /hpf 0-5 Not Available [facility] ([facility]) [address] [facility], [place], [address], 01/17/2024 07:16:37 01/16/20 24 01/17/2024 MICRO SCOPI C EXAMI NATIO N RBC None seen /hpf 0-2 Not Available [facility] ([facility]) [address] [facility], [place], [address], 01/17/2024 07:16:37 01/16/20 24 01/17/2024 MICRO SCOPI C EXAMI NATIO N epithelial cells (non renal) 0-10 /hpf 0-10 Not Available [facility] ([facility]) [address] [facility], [place], [address], 01/17/2024 07:16:37 01/16/20 24 01/17/2024 MICRO SCOPI C EXAMI NATIO N casts None seen /lpf nonese en Not Available [facility] ([facility]) [address] [facility], [place], [address], 01/17/2024 07:16:37 01/16/20 24 01/17/2024 MICRO SCOPI C EXAMI NATIO N bacteria None seen nonese en/few Not Available [facility] ([facility]) [address] [facility], [place], [address], 01/17/2024 07:16:37 01/16/20 24 01/17/2024 URINA LYSIS , COMPL ETE specific gravity 1.017 1.005- 1.030 Not Available [facility] ([facility]) [address] [facility], [place], [address], 01/17/2024 07:16:37 01/16/20 24 01/17/2024 URINA LYSIS , COMPL ETE pH 5.5 5.0-7. 5 Not Available [facility] ([facility]) [address] [facility], [place], [address], 01/17/2024 07:16:37 01/16/20 24 01/17/2024 URINA LYSIS , COMPL ETE urine-color YELLOW yellow Not Available [facility] ([facility]) [address] [facility], [place], [address], 01/17/2024 07:16:37 01/16/20 24 01/17/2024 URINA LYSIS , COMPL ETE appearance CLEAR clear Not Available [facility] ([facility]) [address] [facility], [place], [address], 01/17/2024 07:16:37 01/16/20 24 01/17/2024 URINA LYSIS , COMPL ETE WBC esterase NEGATI VE negati ve Not Available [facility] ([facility]) [address] [facility], [place], [address], 01/17/2024 07:16:37 01/16/20 24 01/17/2024 URINA LYSIS , COMPL ETE protein NEGATI VE negati ve/tra ce Not Available [facility] ([facility]) [address] [facility], [place], [address], 01/17/2024 07:16:37 01/16/20 24 01/17/2024 URINA LYSIS , COMPL ETE glucose 1+ negati ve abnormal Not Available [facility] ([facility]) [address] [facility], [place], [address], 01/17/2024 07:16:37 01/16/20 24 01/17/2024 URINA LYSIS , COMPL ETE ketones NEGATI VE negati ve Not Available [facility] ([facility]) [address] [facility], [place], [address], 01/17/2024 07:16:37 01/16/20 24 01/17/2024 URINA LYSIS , COMPL ETE occult blood NEGATI VE negati ve Not Available [facility] ([facility]) [address] [place], [address], 01/17/2024 07:16:37 01/16/20 24 01/17/2024 URINA LYSIS , COMPL ETE bilirubin NEGATI VE negati ve Not Available [facility] ([facility]) [address] [place], [address], 01/17/2024 07:16:37 01/16/20 24 01/17/2024 URINA LYSIS , COMPL ETE urobilinogen ,semi-qn 0.2 mg/dL 0.2-1. 0 Not Available [facility] ([facility]) [address] [place], [address], 01/17/2024 07:16:37 01/16/20 24 01/17/2024 URINA LYSIS , COMPL ETE nitrite, urine NEGATI VE negati ve Not Available [facility] ([facility]) [address] [facility], [place], [address], 01/17/2024 07:16:37 01/16/20 24 01/17/2024 URINA LYSIS , COMPL ETE microscopic examination COMMEN T Micro scopi c follo ws if indic ated. Not Available [facility] ([facility]) [address] [facility], [place], [address], 01/17/2024 07:16:37 01/16/20 24 01/17/2024 URINA LYSIS , COMPL ETE microscopic examination SEE BELOW: Micro scopi c was indic ated and was perfo rmed. Not Available [facility] ([facility]) [address] [facility], [place], [address], 01/17/2024 07:16:37 01/16/20 24 01/18/2024 URINE CULTU RERUSSELL NE urine culture, routine FINAL REPORT Not Available [facility] ([facility]) [address] [place], [address], 01/18/2024 07:08:36 01/16/20 24 01/18/2024 URINE CULTU RE, ROUTI NE result 1 COMMEN T Mixed uroge nital artemio 25,00 0-50, 000 colon y formi ng units per mL Not Available [facility] ([facility]) [address] [place], [address], 01/18/2024 07:08:36 01/26/20 24 01/27/2024 ALBUM IN, RANDO M URINE albumin, urine 177.7 ug/mL notest ab. Not Available [facility] ([facility]) [address] [facility], [place], [address], 01/27/2024 13:07:30 01/26/20 24 01/27/2024 MICRO SCOPI C EXAMI NATIO N WBC >30 /hpf 0-5 abnormal Not Available [facility] ([facility]) [address] [facility], [place], [address], 01/27/2024 13:07:31 01/26/20 24 01/27/2024 MICRO SCOPI C EXAMI NATIO N RBC >30 /hpf 0-2 abnormal Not Available [facility] ([facility]) [address] [facility], [place], [address], 01/27/2024 13:07:31 01/26/20 24 01/27/2024 MICRO SCOPI C EXAMI NATIO N epithelial cells (non renal) NONE SEEN /hpf 0-10 Not Available [facility] ([facility]) [address] [facility], [place], [address], 01/27/2024 13:07:31 01/26/20 24 01/27/2024 MICRO SCOPI C EXAMI NATIO N casts NONE SEEN /lpf nonese en Not Available [facility] ([facility]) [address] [facility], [place], [address], 01/27/2024 13:07:31 01/26/20 24 01/27/2024 MICRO SCOPI C EXAMI NATIO N bacteria MANY nonese en/few abnormal Not Available [facility] ([facility]) [address] [facility], [place], [address], 01/27/2024 13:07:31 01/26/20 24 01/27/2024 URINA LYSIS , COMPL ETE specific gravity 1.023 1.005- 1.030 Not Available [facility] ([facility]) [address] [facility], [place], [address], 01/27/2024 13:07:32 01/26/20 24 01/27/2024 URINA LYSIS , COMPL ETE pH 6.0 5.0-7. 5 Not Available [facility] ([facility]) [address] [facility], [place], [address], 01/27/2024 13:07:32 01/26/20 24 01/27/2024 URINA LYSIS , COMPL ETE urine-color YELLOW yellow Not Available [facility] ([facility]) [address] [facility] [address], [place], [address], 01/27/2024 13:07:32 01/26/20 24 01/27/2024 URINA LYSIS , COMPL ETE appearance CLOUDY clear abnormal Not Available [facility] ([facility]) [address] [facility], [place], [address], 01/27/2024 13:07:32 01/26/20 24 01/27/2024 URINA LYSIS , COMPL ETE WBC esterase 2+ negati ve abnormal Not Available [facility] ([facility]) [address] [facility], [place], [address], 01/27/2024 13:07:32 01/26/20 24 01/27/2024 URINA LYSIS , COMPL ETE protein 2+ negati ve/tra ce abnormal Not Available [facility] ([facility]) [address] [facility], [place], [address], 01/27/2024 13:07:32 01/26/20 24 01/27/2024 URINA LYSIS , COMPL ETE glucose 3+ negati ve abnormal Not Available [facility] ([facility]) [address] [facility], [place], [address], 01/27/2024 13:07:32 01/26/20 24 01/27/2024 URINA LYSIS , COMPL ETE ketones TRACE negati ve abnormal Not Available [facility] ([facility]) [address] [facility], [place], [address], 01/27/2024 13:07:32 01/26/20 24 01/27/2024 URINA LYSIS , COMPL ETE occult blood 3+ negati ve abnormal Not Available [facility] ([facility]) [address] [facility], [place], [address], 01/27/2024 13:07:32 01/26/20 24 01/27/2024 URINA LYSIS , COMPL ETE bilirubin NEGATI VE negati ve Not Available [facility] ([facility]) [address] [place], [address], 01/27/2024 13:07:32 01/26/20 24 01/27/2024 URINA LYSIS , COMPL ETE urobilinogen ,semi-qn 0.2 mg/dL 0.2-1. 0 Not Available [facility] ([facility]) [address] [facility], [place], [address], 01/27/2024 13:07:32 01/26/20 24 01/27/2024 URINA LYSIS , COMPL ETE nitrite, urine NEGATI VE negati ve Not Available [facility] ([facility]) [address] [place], [address], 01/27/2024 13:07:32 01/26/20 24 01/27/2024 URINA LYSIS , COMPL ETE microscopic examination SEE BELOW: Micro scopi c was indic ated and was perfo rmed. Not Available [facility] ([facility]) [address] [place], [address], 01/27/2024 13:07:32 01/26/20 24 01/28/2024 URINE CULTU RE,CO MPREH ENSIV E urine culture,comp rehensive FINAL REPORT Not Available [facility] ([facility]) [address] [place], [address], 01/28/2024 07:08:56 01/26/20 24 01/28/2024 URINE CULTU RE,CO MPREH ENSIV E result 1 COMMEN T Mixed uroge nital artemio 25,00 0-50, 000 colon y formi ng units per mL Not Available [facility] ([facility]) [address] [place], [address], 01/28/2024 07:08:56 04/17/19 25 04/17/2024 URINA LYSIS , ROUTI NE specific gravity >=1.03 0 1.005- 1.030 abnormal Not Available [facility] ([facility]) [address] [place], [address], 04/17/2024 07:08:01 04/17/19 25 04/17/2024 URINA LYSIS , ROUTI NE pH 5.5 5.0-7. 5 Not Available [facility] ([facility]) [address] [facility], [place], [address], 04/17/2024 07:08:01 04/17/19 25 04/17/2024 URINA LYSIS , ROUTI NE urine-color YELLOW yellow Not Available [facility] ([facility]) [address] [place], [address], 04/17/2024 07:08:01 04/17/19 25 04/17/2024 URINA LYSIS , ROUTI NE appearance CLEAR clear Not Available [facility] ([facility]) [address] [place], [address], 04/17/2024 07:08:01 04/17/19 25 04/17/2024 URINA LYSIS , ROUTI NE WBC esterase NEGATI VE negati ve Not Available [facility] ([facility]) [address] [place], [address], 04/17/2024 07:08:01 04/17/19 25 04/17/2024 URINA LYSIS , ROUTI NE protein TRACE negati ve/tra ce Not Available [facility] ([facility]) [address] [place], [address], 04/17/2024 07:08:01 04/17/19 25 04/17/2024 URINA LYSIS , ROUTI NE glucose 3+ negati ve abnormal Not Available [facility] ([facility]) [address] [place], [address], 04/17/2024 07:08:01 04/17/19 25 04/17/2024 URINA LYSIS , ROUTI NE ketones NEGATI VE negati ve Not Available [facility] ([facility]) [address] [place], [address], 04/17/2024 07:08:01 04/17/19 25 04/17/2024 URINA LYSIS , ROUTI NE occult blood NEGATI VE negati ve Not Available [facility] ([facility]) [address] [place], [address], 04/17/2024 07:08:01 04/17/19 25 04/17/2024 URINA LYSIS , ROUTI NE bilirubin NEGATI VE negati ve Not Available [facility] ([facility]) [address] [place], [address], 04/17/2024 07:08:01 04/17/19 25 04/17/2024 URINA LYSIS , ROUTI NE urobilinogen ,semi-qn 0.2 mg/dL 0.2-1. 0 Not Available [facility] ([facility]) [address] [place], [address], 04/17/2024 07:08:01 04/17/19 25 04/17/2024 URINA LYSIS , ROUTI NE nitrite, urine NEGATI VE negati ve Not Available [facility] ([facility]) [address] [place], [address], 04/17/2024 07:08:01 04/17/19 25 04/17/2024 URINA LYSIS , ROUTI NE microscopic examination COMMEN T Micro scopi c not indic ated and not perfo rmed. Not Available [facility] ([facility]) [address] [facility], [place], [address], 04/17/2024 07:08:01 04/17/19 25 04/19/2024 URINE CULTU RE,CO MPREH ENSIV E urine culture,comp rehensive FINAL REPORT Not Available [facility] ([facility]) [address] [facility], [place], [address], 04/19/2024 07:10:08 04/17/19 25 04/19/2024 URINE CULTU RE,CO MPREH ENSIV E result 1 COMMEN T Mixed uroge nital artemio 4,000 Colon ies/m L Not Available [facility] ([facility]) [address] [facility], [place], [address], 04/19/2024 07:10:08 04/27/19 25 04/27/2024 HEPAT IC FUNCT ION PANEL (7) protein, total 7.2 g/dL 6.0-8. 5 Not Available [facility] ([facility]) [address] [place], [address], 04/27/2024 09:08:30 04/27/19 25 04/27/2024 HEPAT IC FUNCT ION PANEL (7) albumin 4.2 g/dL 3.8-4. 8 Not Available [facility] ([facility]) [address] [place], [address], 04/27/2024 09:08:30 04/27/19 25 04/27/2024 HEPAT IC FUNCT ION PANEL (7) bilirubin, total 0.4 mg/dL 0.0-1. 2 Not Available [facility] ([facility]) [address] [place], [address], 04/27/2024 09:08:30 04/27/19 25 04/27/2024 HEPAT IC FUNCT ION PANEL (7) bilirubin, direct 0.17 mg/dL 0.00-0 .40 Not Available [facility] ([facility]) [address] [place], [address], 04/27/2024 09:08:30 04/27/19 25 04/27/2024 HEPAT IC FUNCT ION PANEL (7) alkaline phosphatase 108 IU/L 44-121 Not Available [facility] ([facility]) [address] [place], [address], 04/27/2024 09:08:30 04/27/19 25 04/27/2024 HEPAT IC FUNCT ION PANEL (7) AST (SGOT) 28 IU/L 0-40 Not Available [facility] ([facility]) [address] [place], [address], 04/27/2024 09:08:30 04/27/19 25 04/27/2024 HEPAT IC FUNCT ION PANEL (7) ALT (SGPT) 20 IU/L 0-32 Not Available [facility] ([facility]) [address] [place], [address], 04/27/2024 09:08:30 04/27/19 25 04/27/2024 BMP7+ EGFR glucose 413 mg/dL 70-99 above high normal Not Available [facility] ([facility]) [address] [place], [address], 04/27/2024 09:08:31 04/27/19 25 04/27/2024 BMP7+ EGFR BUN 33 mg/dL 8-27 above high normal Not Available [facility] ([facility]) [address] [place], [address], 04/27/2024 09:08:31 04/27/19 25 04/27/2024 BMP7+ EGFR creatinine 0.94 mg/dL 0.57-1 .00 Not Available [facility] ([facility]) [address] [place], [address], 04/27/2024 09:08:31 04/27/19 25 04/27/2024 BMP7+ EGFR eGFR 62 mL/mi n/1.7 3 >59 Not Available [facility] ([facility]) [address] [place], [address], 04/27/2024 09:08:31 04/27/19 25 04/27/2024 BMP7+ EGFR sodium 140 mmol/ L 134-14 4 Not Available [facility] ([facility]) [address] [place], [address], 04/27/2024 09:08:31 04/27/19 25 04/27/2024 BMP7+ EGFR potassium 3.9 mmol/ L 3.5-5. 2 Not Available [facility] ([facility]) [address] [place], [address], 04/27/2024 09:08:31 04/27/19 25 04/27/2024 BMP7+ EGFR chloride 103 mmol/ L 96-106 Not Available [facility] ([facility]) [address] [place], [address], 04/27/2024 09:08:31 04/27/19 25 04/27/2024 BMP7+ EGFR carbon dioxide, total 21 mmol/ L 20-29 Not Available [facility] ([facility]) [address] [place], [address], 04/27/2024 09:08:31 04/27/19 25 04/27/2024 HEMOG LOBIN A1C hemoglobin A1C 9.1 % 4.8-5. 6 above high normal Predi abete s: 5.7 - 6.4 Diabe radha: >6.4 Glyce jose contr ol for adult s with diabe radha: <7.0 Not Available [facility] ([facility]) [address] [facility], [place], [address], 04/27/2024 09:08:32 04/27/19 25 04/27/2024 CBC WITH DIFFE RENTI AL/PL ATELE T WBC 8.7 x10e3 /uL 3.4-10 .8 Not Available [facility] ([facility]) [address] [facility], [place], [address], 04/27/2024 09:08:33 04/27/19 25 04/27/2024 CBC WITH DIFFE RENTI AL/PL ATELE T RBC 4.33 x10e6 /uL 3.77-5 .28 Not Available [facility] ([facility]) [address] [facility], [place], [address], 04/27/2024 09:08:33 04/27/19 25 04/27/2024 CBC WITH DIFFE RENTI AL/PL ATELE T hemoglobin 14.0 g/dL 11.1-1 5.9 Not Available [facility] ([facility]) [address] [facility], [place], [address], 04/27/2024 09:08:33 04/27/1904/27/2024 CBC WITH DIFFE RENTI AL/PL ATELE T hematocrit 42.4 % 34.0-4 6.6 Not Available [facility] ([facility]) [address] [facility], [place], [address], 04/27/2024 09:08:33 04/27/1904/27/2024 CBC WITH DIFFE RENTI AL/PL ATELE T MCV 98 fL 79-97 above high normal Not Available [facility] ([facility]) [address] [facility], [place], [address], 04/27/2024 09:08:33 04/27/19 25 04/27/2024 CBC WITH DIFFE RENTI AL/PL ATELE T MCH 32.3 pg 26.6-3 3.0 Not Available [facility] ([facility]) [address], [place], [address], 04/27/2024 09:08:33 04/27/19 25 04/27/2024 CBC WITH DIFFE RENTI AL/PL ATELE T MCHC 33.0 g/dL 31.5-3 5.7 Not Available [facility] ([facility]) [address] [facility], [place], [address], 04/27/2024 09:08:33 04/27/19 25 04/27/2024 CBC WITH DIFFE RENTI AL/PL ATELE T RDW 12.1 % 11.7-1 5.4 Not Available [facility] ([facility]) [address] [facility], [place], [address], 04/27/2024 09:08:33 04/27/19 25 04/27/2024 CBC WITH DIFFE RENTI AL/PL ATELE T platelets 213 x10e3 /uL 150-45 0 Not Available [facility] ([facility]) [address] [facility], [place], [address], 04/27/2024 09:08:33 04/27/19 25 04/27/2024 CBC WITH DIFFE RENTI AL/PL ATELE T neutrophils 73 % notest ab. Not Available [facility] ([facility]) [address] [facility], [place], [address], 04/27/2024 09:08:33 04/27/19 25 04/27/2024 CBC WITH DIFFE RENTI AL/PL ATELE T lymphs 16 % notest ab. Not Available [facility] ([facility]) [address] [facility], [place], [address], 04/27/2024 09:08:33 04/27/19 25 04/27/2024 CBC WITH DIFFE RENTI AL/PL ATELE T monocytes 7 % notest ab. Not Available [facility] ([facility]) [address] [facility], [place], [address], 04/27/2024 09:08:33 04/27/19 25 04/27/2024 CBC WITH DIFFE RENTI AL/PL ATELE T eos 2 % notest ab. Not Available [facility] ([facility]) [address] [facility], [place], [address], 04/27/2024 09:08:33 04/27/19 25 04/27/2024 CBC WITH DIFFE RENTI AL/PL ATELE T basos 1 % notest ab. Not Available [facility] ([facility]) [address] [place], [address], 04/27/2024 09:08:33 04/27/19 25 04/27/2024 CBC WITH DIFFE RENTI AL/PL ATELE T neutrophils (absolute) 6.5 x10e3 /uL 1.4-7. 0 Not Available [facility] ([facility]) [address] [place], [address], 04/27/2024 09:08:33 04/27/19 25 04/27/2024 CBC WITH DIFFE RENTI AL/PL ATELE T lymphs (absolute) 1.4 x10e3 /uL 0.7-3. 1 Not Available [facility] ([facility]) [address] [place], [address], 04/27/2024 09:08:33 04/27/19 25 04/27/2024 CBC WITH DIFFE RENTI AL/PL ATELE T monocytes(ab solute) 0.6 x10e3 /uL 0.1-0. 9 Not Available [facility] ([facility]) [address] [place], [address], 04/27/2024 09:08:33 04/27/19 25 04/27/2024 CBC WITH DIFFE RENTI AL/PL ATELE T eos (absolute) 0.2 x10e3 /uL 0.0-0. 4 Not Available [facility] ([facility]) [address] [facility], [address], 04/27/2024 09:08:33 04/27/19 25 04/27/2024 CBC WITH DIFFE RENTI AL/PL ATELE T baso (absolute) 0.0 x10e3 /uL 0.0-0. 2 Not Available [facility] ([facility]) [address] [facility], [place], [address], 04/27/2024 09:08:33 04/27/19 25 04/27/2024 CBC WITH DIFFE RENTI AL/PL ATELE T immature granulocytes 1 % notest ab. Not Available [facility] ([facility]) [address] [facility], [place], [address], 04/27/2024 09:08:33 04/27/19 25 04/27/2024 CBC WITH DIFFE RENTI AL/PL ATELE T immature grans (abs) 0.1 x10e3 /uL 0.0-0. 1 Not Available [facility] ([facility]) [address] [facility], [place], [address], 04/27/2024 09:08:33 04/06/19 25 04/05/2024 CT, urogr am No observ ation record ed. [facility] (Imaging) [address], [place], [address], 04/08/2024 13:15:52 Result Notes None recorded. Problems Name Problem SNOMED Code Status Onset Date Resolution Date Notes Provider Name and Address Organization Details Recorded Time Body mass index 30+ - obesity 501950214 Active 2023 Lizbeth Cobos MA null, [place] [facility] 4 11:55:31 Long-term drug therapy Active 2023 NICA Escoto Attn: Jana moore,[address], [place], [address], [place] [facility] 4 12:12:42 Hyperlipide avni 26310782 Active 2023 NICA Escoto Attn: Accountin g,[address] [facility], [place], [address], [place] [facility] 4 12:12:44 Gastroesoph ageal reflux disease without esophagitis 625974760 Active 2023 NICA Escoto Attn: Accountin g,[address] [place], [address], [place] [facility] 4 12:12:45 Uncontrolle d type 2 diabetes mellitus 058883314 Active 2023 NICA Escoto Attn: Accountin g,[address] [place], [address], [place] [facility] 4 12:12:46 History of malignant neoplasm of breast 194187448 Active 2023 NICA Escoto Attn: Accountin g,[address] [place], [address], [place] [facility] 4 12:20:27 History of bilateral mastectomy 851957606 Active 2023 NICA Escoto Attn: Accountin g,[address] [place], [address], [place] [facility] 4 12:20:28 Vitamin D deficiency 23969828 Active 2023 NICA Escoto Attn: Accountin g,[address] [place], [address], [place] [facility] 4 12:20:31 Recurrent urinary tract infection 565437508 Active 2023 NICA Escoto Attn: Accountin g,[address] [place], [address], [place] [facility] 4 12:20:33 Chronic diarrhea 074991833 Active 2023 NICA Escoto Attn: Accountin g,[address] [place], [address], [place] [facility] 4 12:20:34 Major depressive disorder 878834115 Active 2023 NICA Escoto Attn: Jana moore,[address] [facility], [place], [address], [place] [facility] 4 12:20:35 Osteoporosi s 45498692 Active 2023 NICA Escoto Attn: Jana moore,[address] [facility], [place], [address], [place] [facility] 4 12:31:28 Fatigue 15544137 Active 2023 NICA Escoto Attn: Jana moore,[address] [place], [address], [place] [facility] 4 12:31:29 Obesity 613229862 Active 2023 NICA Escoto Attn: Jana moore,[address] [place], [address], [place] [facility] 4 11:19:33 Positive screening for depression on PHQ-9 (Patient Health Questionnai re 9) 6479824928691 00 Active 2023 NICA Escoto Attn: Jana moore,[address] [place], [address], [place] [facility] 4 11:20:21 Unsteady when walking 63716341 Active 2023 NICA Escoto Attn: Jana moore,[address] [place], [address], [place] [facility] 4 21:16:39 Increased frequency of urination 070738350 Active 2023 NICA Escoto Attn: Jana moore,[address] [place], [address], [place] [facility] 4 21:16:40 Urgent desire to urinate 70525355 Active 2023 NICA Escoto Attn: Jana moore,[address] [facility], [place], [address], [place] [facility] 4 21:16:41 Depressive disorder 10568047 Active 2024 NICA Escoto Attn: Jana g,[address] [facility], [place], [address], [place] [facility] 5 16:04:21 Microscopic hematuria 769262345 Active 2024 NICA Escoto Attn: Accountjavier moore,[address] [facility], [place], [address], [place] [facility] 5 16:04:23 Minimal cognitive impairment 831669482 Active 2024 NICA Escoto Attn: Jana moore,[address] [facility], [place], [address], [place] [facility] 5 15:38:20 Benign essential hypertensio n 3012099 Active 2024 NICA Escoto Attn: Jasonjavier moore,[address] [facility], [place], [address], [place] [facility] 5 13:59:36 Problem Notes None recorded. Procedures Surgical History Date Name Laterality Status Provider Name and Address Organization Details Recorded Time 11/28/19 Diabetic Foot Exam completed Lizbeth Cobos MA CT - [facility] 11/28/2023 12:21:45 Breast Surgery completed Lizbeth Cobos MA CT - [facility] 10/10/2023 12:02:24 cholecystectomy completed Lizbeth Cobos MA CT - [facility] 10/10/2023 12:02:29 Imaging Results Imaging Date Name Status [facility] Details LastModified Time 04/05/2024 CT, urogram completed [facility] (Imaging) [address], [place], [address], 04/08/2024 13:15:52 Procedure Notes None recorded. Medical Equipment None Reported. Allergies Allergen ID Allergen Name Allergen Category Reaction Reaction Severity Criticality Documentation Date Start Date Code Code System Note Provider Name and Address Organization Details Recorded Time 657002 fish derived food,medi cation Not available Not available Not available 10/10/2023 82620 UNK Not Available Not Available Not Available 089583 Substance with sulfonami de structure and antibacte rial mechanism of action (substanc e) medicatio n Not available Not available Not available 10/10/2023 76275 8003 SNOMED Not Available Not Available Not Available Medications Name Sig Start Date Stop Date Status Note LastModified by Organization Details LastModified Time celecoxib 200 mg capsule TAKE 1 CAPSULE BY MOUTH EVERY DAY active Not Available Not Available No t Available anastrozole 1 mg tablet TAKE 1 TABLET BY MOUTH EVERY DAY active Not Available Not Available No t Available doxycycline hyclate 100 mg capsule TAKE 1 CAPSULE BY MOUTH TWICE A DAY FOR 10 DAYS 10/09 completed Not Available Not Available Not Available donepezil 5 mg tablet TAKE 1 TABLET EVERY DAY BY ORAL ROUTE, FOR MEMORY. active Not Available Not Available No t Available benzonatate 200 mg capsule Take 1 capsule 3 times a day by oral route, for cough. 2024 active Not Available Not Available Not Avai lable glipizide 10 mg tablet TAKE 2 TABLETS [...] MOUTH EVERY 12 HOURS FOR 7 DAYS 04/22 completed Not Available Not Available Not Available omeprazole 40 mg capsule,del ayed release [...] 100 unit/mL (3 mL) subcutaneou s pen INJECT 20 UNITS EVERY DAY BY SUBCUTANE OUS ROUTE DIRECTED. active Not Available Not Available No t [...] Address Organization Details Last Updated DateTime 4 07738.6 g 20 /min 36.1 kg/m2 149.86 cm 96 % 96 % 68 /min 122 mm[Hg] 80 mm[Hg] Lizbeth Cobos MA [facility] 4 12:06:25 Date Recorded Systolic blood pressure Diastolic blood pressure Provider Name and Address Organization Details Last Updated DateTime 10/10/2023 118 mm[Hg] 70 mm[Hg] NICA Escoto Attn: Accounting,[address] [place], [address], [facility] 10/10/2023 12:26:56 Date Recorded Body height Body mass index (BMI) Body weight Respiratory rate Oxygen saturation Oxygen saturation in Arterial blood by Pulse oximetry Heart rate Systolic blood pressure Diastolic blood pressure Provider Name and Address Organization Details Last Updated DateTime 4 149.86 cm 36.8 kg/m2 38100.8 1 g 20 /min 97 % 97 % 77 /min 128 mm[Hg] 82 mm[Hg] Lizbeth Cobos MA [facility] 4 12:19:20 Date Recorded Body height Respiratory rate Oxygen saturation Oxygen saturation in Arterial blood by Pulse oximetry Heart rate Body mass index (BMI) Body weight Systolic blood pressure Diastolic blood pressure Provider Name and Address Organization Details Last Updated DateTime 4 149.86 cm 20 /min 96 % 96 % 90 /min 37 kg/m2 46907.4 g 142 mm[Hg] 82 mm[Hg] TERI Elmore [facility] 4 10:13:49 Date Recorded Systolic blood pressure Diastolic blood pressure Provider Name and Address Organization Details Last Updated DateTime 01/22/2024 140 mm[Hg] 80 mm[Hg] NICA Escoto Attn: Accounting,[address] [place], [address], [facility] 01/22/2024 10:30:03 Date Recorded Body height Body mass index (BMI) Body weight Oxygen saturation Oxygen saturation in Arterial blood by Pulse oximetry Heart rate Systolic blood pressure Diastolic blood pressure Provider Name and Address Organization Details Last Updated DateTime 5 149.86 cm 36.2 kg/m2 49451.0 3 g 98 % 98 % 90 /min 142 mm[Hg] 88 mm[Hg] Lizbeth Cobos MA [facility] 16:05:07 Date Recorded Respiratory rate Systolic blood pressure Diastolic blood pressure Provider Name and Address Organization Details Last Updated DateTime 02/27/2024 16 /min 138 mm[Hg] 84 mm[Hg] NICA Escoto Attn: Accounting, [address] [place], [address], [facility] 02/27/2024 16:20:38 Date Recorded Body height Body mass index (BMI) Body weight Oxygen saturation Oxygen saturation in Arterial blood by Pulse oximetry Heart rate Systolic blood pressure Diastolic blood pressure Provider Name and Address Organization Details Last Updated DateTime 149.86 cm 36.4 kg/m2 70495.6 3 g 96 % 96 % 84 /min 138 mm[Hg] 82 mm[Hg] Lizbeth Cobos MA [facility] 15:23:10 Date Recorded Respiratory rate Systolic blood pressure Diastolic blood pressure Provider Name and Address Organization Details Last Updated DateTime 04/23/2024 16 /min 148 mm[Hg] 90 mm[Hg] NICA Escoto Attn: Accounting, [address] [place], [address], [facility] 04/23/2024 15:53:43 Social History Question Answer Notes LastModified by Organizat ion Details LastModified Time Tobacco Smoking Status Former Smoker quit years 40 years ago Lizbeth Cobos MA [facility], [facility] 10/10/2023 12:01:28 Do You Have An Advance [...] Date Of Your Most Recent Tobacco Screening? 04/23/2024 Information not available 04/23/2024 What Is Your Current Pack Years? 30ormorepack [...] available 2023 13:17:42 Medical History Condition Response High Blood Pressure Y Depression Y Anxiety Disorder Y Acid Reflux (GERD) Y Cancer Y Headaches Y Allergies Y Asthma Y High Cholesterol Y Thyroid Problems Y Diabetes Y Osteoporosis Y Gynecological History Statement/Question Response [...] completed Lizbeth Cobos [place], [place] [facility] 11/21/2023 16:50:33 COVID-19, mRNA, LNP-S, PF, kendall-sucrose, 30 mcg/0.3 mL 06/11/2023 completed Lizbeth Cobos [place], [place] [facility] 11/21/2023 16:50:33 Influenza, high-dose, trivalent, PF 11/28/2023 completed NICA Escoto Attn: Accounting,[address], [place], [address], [facility] 12/14/2023 17:20:25 Past Encounters Encounter ID Performer Location Encounter Start Date Encounter Closed Date Diagnosis/Indication Diagnosis SNOMED-CT Code Diagnosis ICD10 Code Diagnosis Note [id number] NICA Escoto [facility] [place] [address] [place] [address] 10/10/2023 11:09:36 10/10/2023 12:33:50 Body mass index 30+ - obesity 221381295 Z68.36 BMI is 36.1 Uncontroll ed type 2 diabetes mellitus 476117818 E11.65 11% in June. 250-276 range. Patient is due for updated A1c and also referral for diabetic eye exam. For now she will increase to reveal cysts 7 mg daily and continue Janumet XR 100/1000 mg daily and glipizide 20 mg twice daily. We will await new A1c results. Gastroesop hageal reflux disease without esophagitis 896608248 K21.9 Continue omeprazole 40 mg daily for acid reflux management Hyperlipidemia 98262167 E78.5 Refill given on simvastati n 40 mg daily that is needed and she is also due for fasting lipid panel Long-term drug therapy 599461757 Z79.899 All routine labs including CBC, BMP, liver function and thyroid are due Major depr essive disorder 249056570 F32.9 Start Wellbutrin XL 150 mg p.o. daily and follow-up in 4-6 weeks. Appointmen t has been made Recurrent urinary tract infection 006085153 N39.0 Check urine with culture for recurrent UTI History of malignant neoplasm of breast 511076703 Z85.3 2019 bilateral mastectomi es. Patient is on anastrozol e 1 mg daily and is coming up on her 5 years. She should discuss discontinu ation of this with her oncologist . Vitamin D deficiency 347 75085 E55.9 on supplement . Chronic diarrhea 4654464 09 K52.9 years of diarrhea. has not been evaluated to date. We will refer for diagnostic colonoscop y for the patient to have thorough evaluation into what may or may not be causing her chronic diarrhea History of bilateral mastectomy 367718123 Z90.13 History reviewed Fatigue 42127344 R53.83 Screening vitamin B12 and folic acid ordered Osteoporosis 92004466 M8 1.0 Patient reports a history of osteoporos is with DEXA scan up-to-date . She is taking vitamin-D high-dose for supplement . We will await medical records transfer to see when she is due for DEXA again. Obesity 255448880 E66.8 discussed healthy diet, exercise, controllin g carbohydra radha and added sugars in the diet Positive s creening for depression on PHQ-9 (Patient Health Questionnaire 9) 2521120459 09892 Z13.31 Patient scored a 23 on screening today. Bupropion therapy has been added for major depressive disorder as stated above. Follow-up [facility] t has been scheduled [id number] NICA Escoto [facility] [place] [address] [place] [address] 11/28/2023 11:57:01 11/28/2023 13:00:07 Chronic diarrhea 126982776 K52.9 years of diarrhea. has not been evaluated to date. We will refer for diagnostic colonoscop y for the patient to have thorough evaluation into what may or may not be causing her chronic diarrhea. They have not called her so we will give the patient the phone number to call GI for colonoscop y screening Uncontroll ed type 2 diabetes mellitus 169063562 E11.65 11% in June. . A1c completed [...] thereafter Gastroesop hageal reflux disease without esophagitis 243635199 K21.9 Continue omeprazole 40 mg daily for acid reflux management Hyperlipidemia 36128336 E78.5 Continue simvastati n 40 mg daily that is needed and she is also due for fasting lipid panel in January Major depr essive disorder 301783836 F32.9 Patient's depression has improvemen t on Wellbutrin XL 150 mg p.o. daily. We will continue dosing of Wellbutrin medication as it has been efficaciou s Vitamin D deficiency 347 67223 E55.9 on high-dose vitamin-D supplement . Body mass index 30+ - obesity 399702545 Z68.36 BMI is 36.1 Long-term drug therapy 933182327 Z79.899 CBC, BMP and liver function due again in January History of malignant neoplasm of breast 550158469 Z85.3 2019 bilateral mastectomi es. Patient is on anastrozol e 1 mg daily and is coming up on her 5 years. She should discuss discontinu ation of this with her oncologist . History of bilateral mastectomy 241414966 Z90.13 History reviewed Osteoporosis 55314694 M8 1.0 Patient reports a history of osteoporos is with DEXA scan up-to-date . She is taking vitamin-D high-dose for supplement . We will await medical records transfer to see when she is due for DEXA again. Obesity 174013346 E66.9 discussed healthy diet, exercise, controllin g carbohydra radha and added sugars in the diet Recurrent urinary tract infection 912203435 N39.0 Each lab we will check urine with culture for recurrent UTI Administra tion of influenza vaccine 88332980 Z23 Flu shot given today [id number] NICA Escoto [facility] [place] [address] [place] [address] 01/22/2024 10:06:15 01/22/2024 11:25:59 Urgent desire to urinate 73444710 R39.15 Patient has already an order for urinalysis with culture to see if there is a UTI present she was unable to void at the lab the other day. Empiric antibiotic s were started for her she still needs to complete a urinalysis post treatment Increased frequency of urination 435163975 R35.0 As above Uncontroll ed type 2 diabetes mellitus 302480434 E11.65 Refer to nutrition and dietitian for consult on diabetic diet and guidelines to help patient. Refill Lantus at 20 units daily and we will titrate up as indicated to get fasting sugars below 120 Unsteady when walking 22 832711 R26.89 Refer to physical therapy for gait training and strengthen ing Long-term drug therapy 370407591 Z79.429 [id number] NICA Escoto [facility] [address] [place] [address] 02/27/2024 15:38:32 03/08/2024 15:02:00 Microscopic hematuria R31.29 Patient is still due for a CT urogram that needs to be evaluated for some microscopi c hematuria that was noted on urinalysis . We need to evaluate for possible kidney stone or any other etiology for the mild red blood cells noted despite negative for UTI. Uncontroll ed type 2 diabetes mellitus 908967433 E11.65 Patient is due in March for an updated A1c. We are looking for an improvemen t from the 10.4% on her A1c since she has been routine with her insulin dosing. She also is taking her oral agents and has family and close friend overseeing med scheduling a distributi on. Unsteady when walking 22 233279 R26.89 Patient has been to physical therapy for gait training and strengthen ing and should continue this plan at this time Long-term drug therapy 033166285 Z79.899 BMP, liver function and CBC will also be due in March Depressive disorder 6987 9618 F32.A After interview and discussion s today it was determined that the patient has not had a refill of her Lexapro 10 mg daily and perhaps this is why her mood has been leaning more on the depression side. We are refilling her Lexapro 10 mg that was started from her last PCP and has worked well in the past. [id number] NICA Escoto [facility] [address] [place] [address] 04/23/2024 15:14:54 04/23/2024 15:59:37 Microscopic hematuria R31.29 going to be seeing urology, dr lombardo, may 05. Referral placed [facility] ed type 2 diabetes mellitus 366881462 E11.65 Patient still has lab orders to complete so that we can see where her A1c is now. She is on insulin as the primary work force in lowering her A1c Unsteady when walking 22 140026 R26.89 Patient has been to physical therapy for gait training and strengthen ing and should continue this plan at this time. 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 The friend and bagel maker/ jack frame tender today again on exam has been notified of the medicine which she will deliver to the patient's daughter. We have also discussed that if any safety concerns develop we will have to discuss help more often in the home Benign ess ential hypertension 6709738 I10 has not been on atenolol 50mg . . We went over all the meds in her medicine box today and atenolol is not in there and it should be so they are going to look for that at home and get it refilled her blood pressure is up today because of this missing agent. Positive s creening for depression on PHQ-9 (Patient Health Questionnaire 9) 1394954365 63846 Z13.31 Patient scored a 23 on screening today. Bupropion therapy has been added for major depressive disorder as stated above. Follow-up appointmen t has been scheduled Health Concerns Section Related Observation LastModified by Organization Detai ls LastModified Time None Recorded Concern Status LastModified by Organization Details LastModified Time None Recorded Advance Directives Directive Y: Payers Encounter Date Sequence Insurance Name Policy Number Policy Kraft Covered Member ID Kraft Member ID Guarantor Name 10/10/2023 1 [employer] (MEDICARE REPLACEMENT/ ADVANTAGE - HMO) [id number] Anu Hedrick [id number] Anu Hedrick 11/28/2023 1 [employer] (MEDICARE REPLACEMENT/ ADVANTAGE - HMO) [id number] Anu Hedrick [id number] Anu Hedrick 01/22/2024 1 [employer] (MEDICARE REPLACEMENT/ ADVANTAGE - HMO) [id number] Skip Hedrick [id number] Anu Hedrick 02/27/2024 1 [facility] (MEDICARE REPLACEMENT/ ADVANTAGE - HMO) [id number] Anu Hedrick [id number] Anu Hedrick 04/23/2024 1 [facility] (MEDICARE REPLACEMENT/ ADVANTAGE - HMO) [id number] Anu Hedrick [id number] Anu Hedrick Notes Date Note Type Note Provider Name and Address Organization Details Recorded Time 4 text/html [facility], NEW PT, FORMER Dennis, PT, Pt. states that her [...] osteoporosis history NICA Escoto Attn: Accounting,[address] [place], [address], [facility] - [facility] 10/13/2023 11:22:03 4 text/html Last HPI: pt. states that her A1C was at about [...] osteoporosis history NICA Escoto Attn: Accounting,[address], [place], [address], [facility] - [facility] 12/14/2023 17:23:29 4 text/html Sept a1c was 10.4%.Patient's depression is [...] osteoporosis history NICA Escoto Attn: Accounting,[address] [facility], [place], [address], [place] [facility] 02/08/2024 21:19:36 5 text/html Sept a1c was 10.4%. She is finally on injectable insulin therapy [...] osteoporosis history NICA Escoto Attn: Accounting,[address], [place], [address], [place] [facility] 03/14/2024 16:05:07 5 text/html Sept a1c was 10.4%. She is finally on injectable insulin therapy and reports that she is taking this every day., Along with her oral agents. Patient did not complete labs that were ordered at the last appointmentDepression is stabilizing since the last appointment Patient has some microscopic blood in her urine that still needs to be addressed todayPatient has underlying history of hyperlipidemia on medication [...] osteoporosis history NICA Escoto Attn: Accounting,[address] [facility], [place], [address], [facility] 05/11/2024 13:59:54 OBGyn Episode No OBEpisode recorded.
--- OUTSIDE RECORDS SUMMARY | 2024-05-14 11:27 | XMS_ITS | Clinical Summary ---
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
[2024-05-14 11:35] LABS: Influenza A QL RT-PCR Negative (Negative); Influenza B QL RT-PCR Negative (Negative); RSV RNA, RT-PCR Negative (Negative); SARS-CoV-2 RNA PCR Negative (Negative)
[2024-05-14 11:57] VITALS: BP 144/73; PULSE 92; RESP 18; TEMP 36.6; O2SAT 95
== END 2024-05-14 12:32 | disposition home or self-care (01) ==
PROVIDERS: Emergency Provider Emergency Medicine; PCP Physician Assistant
DX: J18.9 Pneumonia, unspecified organism (principal); Z20.822 Contact with and (suspected) exposure to COVID-19; I10 Essential (primary) hypertension; E11.9 Type 2 diabetes mellitus without complications; Z85.3 Personal history of malignant neoplasm of breast; Z90.13 Acquired absence of bilateral breasts and nipples; Z79.84 Long term (current) use of oral hypoglycemic drugs; Z79.899 Other long term (current) drug therapy; Z79.82 Long term (current) use of aspirin; R91.8 Other nonspecific abnormal finding of lung field
CPT/HCPCS: 36415; 71045; 80053; 85025; 87637; 99283